=== PATIENT | female | born 2000 | race Caucasian/White ===

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

== ENCOUNTER 2022-07-08 07:21 | Emergency (ER) | payer BC, OTHER ==
[2022-07-08 07:32] VITALS: BP 127/78; PULSE 110; RESP 26; TEMP 98.2
[2022-07-08] MEDS ORDERED: IBUPROFEN 600 MG TAB PO STA (07:46)
[2022-07-08] MEDS ORDERED: ACETAMINOPHEN TAB 325 MG TAB PO STA (07:46)
[2022-07-08] MEDS ORDERED: LIDOCAINE 1% INJ 10MG/ML (30 ML VIAL-PF) SQ ONE (07:46)
[2022-07-08] MEDS ORDERED: DIPH,PERTUS(ACELL)TETVAC-LF 0.5 ML VIAL IM ONE (07:46)
--- NOTE | 2022-07-08 07:56 | ED ---
Upper Extremity HPI - General Chief Complaint: Extremity Injury, Upper Stated Complaint: Hand Lac Time Seen by Provider: 07/08/22 07:45 Source: patient, family (mom) Mode of arrival: ambulatory Limitations: no limitations - History of Present Illness Initial Comments: This is a developmentally delayed 22-year-old female brought in by mother after sustaining a laceration to the left forearm around 6:30 this morning when she hit a window. Patient denies any other injuries. Unknown if tetanus shot is up-to-date. No active bleeding at this time. MD Complaint: Injury to:: left, forearm -: hour(s) (1) Place: home Severity scale (1-10): 10 Context: other (hit window, laceration) Associated Symptoms: denies other symptoms - Related Data Allergies Allergy/AdvReac Type Severity Reaction Status Date / Time amoxicillin AdvReac Rash/Hives Verified 07/08/22 07:32 codeine AdvReac Unknown Verified 07/08/22 07:33 Childhood Review of Systems ROS Statement: Those systems with pertinent positive or pertinent negative responses have been documented in the HPI. ROS Other: All systems not noted in ROS Statement are negative. Past Medical History Additional Past Medical History / Comment(s): TRIO neuro development delay History of Any Multi-Drug Resistant Organisms: None Reported Past Surgical History: Hernia Repair Smoking Status: Never smoker Past Alcohol Use History: None Reported Past Drug Use History: None Reported General Exam Limitations: no limitations General appearance: alert Head exam: Present: atraumatic, normocephalic Eye exam: Absent: scleral icterus, conjunctival injection, periorbital swelling Respiratory exam: Absent: respiratory distress, accessory muscle use Cardiovascular Exam: Present: tachycardia Extremities exam: Present: normal capillary refill Left Elbow exam: Absent: tenderness Forearm Wrist exam: Present: tenderness, laceration. Absent: swelling, abrasion Hand Wrist exam: Present: full ROM. Absent: tenderness Neuro motor exam: Present: wrist extension intact Neurosensory exam: Present: radial nerve intact, ulnar nerve intact, median nerve intact Vascular: Present: normal capillary refill. Absent: vascular compromise Neurological exam: Present: alert Psychiatric exam: Present: anxious Skin exam: Present: warm, dry, normal color. Absent: cyanosis, diaphoretic, petechiae, pallor Course Vital Signs 07/08/22 07:27 Temperature 98.2 F Pulse Rate 110 H Respiratory 26 H Rate Blood Pressure 127/78 O2 Sat by Pulse 96 Oximetry Procedures - Laceration Laceration #1 Indication: laceration Site: upper extremity Size (cm): 6 Description: linear Anesthetic Used: lidocaine 1% Anesthesia Technique: local infiltration Pre-repair: wound explored, irrigated extensively Size of Sutures: 4-0, 6-0 Number of Sutures: 10 Technique: simple, interrupted Patient Tolerated Procedure: well, no complications Medical Decision Making - Medical Decision Making Patient lacerated her left forearm after punching a window breaking the glass. She has full range of motion. Sensation intact. Neurovascularly intact. Wound was cleansed with copious irrigation and explored with no evidence of foreign body. X-ray of the left forearm interpreted by me shows no evidence of fracture or foreign body. Radiologist interpretation no evidence of acute fracture, soft tissue defect on the ulnar aspect of the mid forearm consistent laceration. No radiopaque foreign body. Patient was given Tylenol Motrin for pain. Mom refused tetanus shot. Bacitracin dressing was applied directed to follow up with primary care doctor for suture removal. Mom was agreeable to this plan of care. Case discussed with Dr. Ko. Was pt. sent in by a medical professional or institution (, PA, [employer], urgent care, hospital, or care home...) When possible be specific @ -No Did you speak to anyone other than the patient for history (EMS, parent, family, police, friend...)? What history was obtained from this source @ -mom Did you review nursing and triage notes (agree or disagree)? Why? @ -I reviewed and agree with nursing and triage notes Were old charts reviewed (outside hosp., previous admission, EMS record, old EKG, old radiological studies, urgent care reports/EKG's, care home records)? Report findings @ -No old charts were reviewed Differential Diagnosis (chest pain, altered mental status, abdominal pain women, abdominal pain men, vaginal bleeding, weakness, fever, dyspnea, syncope, headache, dizziness, GI bleed, back pain, seizure, CVA, palpatations, mental health, musculoskeletal)? @ -Laceration, foreign body, fracture EKG interpreted by me (3pts min.). @ -n/a X-rays interpreted by me (1pt min.). @ -Yes as above CT interpreted by me (1pt min.). @ -None done U/S interpreted by me (1pt. min.). @ -None done What testing was considered but not performed or refused? (CT, X-rays, U/S, labs)? Why? @ -None What meds were considered but not given or refused? Why? @ -Tetanus was offered and refused Did you discuss the management of the patient with other professionals (professionals i.e. , PA, [employer], lab, RT, psych nurse, social media campaign manager, shrimp boat captain, teacher, ski patrol officer, caseworker intake)? Give summary @ -No Was smoking cessation discussed for >3mins.? @ -No Was critical care preformed (if so, how long)? @ -No Were there social determinants of health that impacted care today? How? (Homelessness, low income, unemployed, alcoholism, drug addiction, transportation, low edu. Level, literacy, decrease access to med. care, intermediate, rehab)? @ -Low education literacy, developmental delay Was there de-escalation of care discussed even if they declined (Discuss DNR or withdrawal of care, Hospice)? DNR status @ -No What co-morbidities impacted this encounter? (DM, HTN, Smoking, COPD, CAD, Cancer, CVA, ARF, Chemo, Hep., AIDS, mental health diagnosis, sleep apnea, morbid obesity)? @ -None Was patient admitted / discharged? Hospital course, mention meds given and route, prescriptions, significant lab abnormalities, going to OR and other pertinent info. @ -Discharged Undiagnosed new problem with uncertain prognosis? @ -No Drug Therapy requiring intensive monitoring for toxicity (Heparin, Nitro, Insulin, Cardizem)? @ -No Were any procedures done? @ -Laceration repair Diagnosis/symptom? @ -Left forearm laceration Acute, or Chronic, or Acute on Chronic? @ -Acute Uncomplicated (without systemic symptoms) or Complicated (systemic symptoms)? @ -Uncomplicated Side effects of treatment? @ -No Exacerbation, Progression, or Severe Exacerbation? @ -No Poses a threat to life or bodily function? How? (Chest pain, [place], [place], pneumonia, PE, COPD, DKA, ARF, appy, cholecystitis, CVA, Diverticulitis, Homicidal, Suicidal, threat to staff... and all critical care pts) @ -No Disposition Clinical Impression: Laceration of forearm, left Disposition: HOME SELF-CARE Condition: Good Instructions (If sedation given, give patient instructions): Laceration (ED) Additional Instructions: Keep wound covered with a thin layer of bacitracin once a day. Sutures to be removed in 7-10 days by primary care doctor. Return with any signs and symptoms of infection including drainage, redness or fevers. Is patient prescribed a controlled substance at d/c from ED?: No Referrals: Rashard Cobb DO [Primary Care Provider] - 1-2 days Time of Disposition: 08:34
--- NOTE | 2022-07-08 08:07 | XR ---
EXAMINATION TYPE: XR forearm LT DATE OF EXAM: 07/08/2022 8:03 AM INDICATION: Patient age:Female; 22 years old; Reason for study: foreign body; [facility]. COMPARISON: None TECHNIQUE: The left forearm was examined in AP and lateral projections. FINDINGS: No acute fracture or dislocation. No osseous erosions. No joint dislocation. No soft tissu e edema. There is a soft tissue defect along the ulnar aspect of the mid forearm consistent with know n laceration. No radiopaque foreign body identified. IMPRESSION: 1. No evidence of acute fracture. 2. Soft tissue defect along the ulnar aspect of the midforearm consistent with known laceration. No radiopaque foreign body.
[2022-07-08] MEDS ORDERED: BACITRACIN OINT 1 EACH PACKET TOPICAL ONE (08:32)
== END 2022-07-08 08:59 | disposition home or self-care (01) ==
LOC: EC 07:21
DX: S51.812A Laceration without foreign body of left forearm, initial encounter (principal); Z88.5 Allergy status to narcotic agent; Z88.0 Allergy status to penicillin; W22.09XA Striking against other stationary object, initial encounter; Y92.009 Unspecified place in unspecified non-institutional (private) residence as the place of occurrence of the external cause
CPT/HCPCS: 73090; 99283; 12002; J2001

== ENCOUNTER 2022-10-27 19:22 | Emergency (ER) | payer BC, OTHER ==
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
[2022-10-27] MEDS ORDERED: LORazepam 1 MG TAB PO STA (21:34)
== END 2022-10-27 21:53 | disposition home or self-care (01) ==
LOC: EC 19:22 → EEVIPCON 19:22 → EC 21:53
DX: F43.20 Adjustment disorder, unspecified (principal); Z88.0 Allergy status to penicillin; Z88.5 Allergy status to narcotic agent
CPT/HCPCS: 82075; 99284

== ENCOUNTER 2022-10-31 10:32 | Emergency (ER) | payer BC, OTHER ==
[2022-10-31] MEDS ORDERED: LORazepam 2 MG/ML INJ IM STA (10:51)
[2022-10-31 11:29] LABS: Amphetamine Screen,Urine Not Detected (NotDetected); Barbiturate Screen,Urine Not Detected (NotDetected); Benzodiazepines Screen,Urine Detected (NotDetected); Cocaine Screen,Urine Not Detected (NotDetected); Methadone Screen, Urine Not Detected (NotDetected); Opiate Screen,Urine Not Detected (NotDetected); Oxycodone Screen, Urine Not Detected (NotDetected); Phencyclidine Screen,Urine Not Detected (NotDetected); Tricyclic Antidepressant,Urine Not Detected (NotDetected); Urn Cannabinoid Scrn Detected (NotDetected)
--- NOTE | 2022-10-31 11:47 | ED ---
Psych HPI - General Chief Complaint: Psychiatric Symptoms Stated Complaint: Mental Health Time Seen by Provider: 10/31/22 10:45 Source: patient, family, RN notes reviewed Mode of arrival: ambulatory Limitations: no limitations - History of Present Illness Initial Comments: 22-year-old female presents emergency Department with mother and [facility] worker for psychiatric evaluation. Patient was discharged earlier this morning after evaluation. Symptoms are getting worse patient had recent medication change that are making symptoms worse. She's had psychotic manic features. Patient does not want to be year patient denies any drug or alcohol use. - Related Data Home Medications Medication Instructions Recorded Confirmed Calcium Carb/Vitamin D3/Vit K1 1 tab PO DAILY@0800 10/27/22 10/31/22 [Viactiv 650 mg-12.5 Mcg Chew] Daysee 1 tab PO DAILY@0800 10/27/22 10/31/22 Joy Otc 750mg 1 cap PO DAILY PRN 10/27/22 10/31/22 Multivitamins, Thera [Multivitamin 1 tab PO DAILY@0800 10/27/22 10/31/22 (formulary)] Nystatin/Triamcin 1 applic TOPICAL BID@0800,199910/27/22 10/31/22 [Nystatin-Triamcinolone Cream] OXcarbazepine [Trileptal] 600 mg PO BID@0800,199910/27/22 10/31/22 Saccharomyces Boulardii 250 mg PO BID@0800,199910/27/22 10/31/22 [Saccharomycin Df] LORazepam [Ativan] 1 mg PO BID@0800,159910/31/22 10/31/22 Allergies Allergy/AdvReac Type Severity Reaction Status Date / Time amoxicillin AdvReac Rash/Hives Verified 10/31/22 12:52 codeine AdvReac Unknown Verified 10/31/22 12:52 Childhood Review of Systems ROS Statement: Those systems with pertinent positive or pertinent negative responses have been documented in the HPI. ROS Other: All systems not noted in ROS Statement are negative. Past Medical History Past Medical History: No Reported History Additional Past Medical History / Comment(s): TRIO neuro development delay History of Any Multi-Drug Resistant Organisms: None Reported Past Surgical History: Hernia Repair Smoking Status: Never smoker Past Alcohol Use History: None Reported Past Drug Use History: None Reported General Exam Limitations: altered mental status General appearance: alert, in no apparent distress Head exam: Present: atraumatic, normocephalic, normal inspection Eye exam: Present: normal appearance, PERRL, EOMI. Absent: scleral icterus, conjunctival injection, periorbital swelling ENT exam: Present: normal exam, normal oropharynx Neck exam: Present: normal inspection, full ROM. Absent: tenderness, meningismus, lymphadenopathy Respiratory exam: Present: normal lung sounds bilaterally. Absent: respiratory distress, wheezes, rales, rhonchi, stridor Cardiovascular Exam: Present: regular rate, normal rhythm, normal heart sounds. Absent: systolic murmur, diastolic murmur, rubs, gallop, clicks Neurological exam: Present: alert Psychiatric exam: Present: agitated Course Vital Signs 10/31/22 10/31/22 10/31/22 10:42 10:44 14:44 Temperature 98.3 F Pulse Rate 102 H 86 68 Respiratory 20 18 16 Rate Blood Pressure 118/83 123/68 123/60 O2 Sat by Pulse 97 98 98 Oximetry Medical Decision Making - Medical Decision Making Was pt. sent in by a medical professional or institution (, PA, [employer]ERING AND EVENTS MANAGER, urgent care, hospital, or retirement...) When possible be specific @ -No Did you speak to anyone other than the patient for history (EMS, parent, family, police, friend...)? What history was obtained from this source @ -[facility], [facility] clinician providing current evaluation Did you review nursing and triage notes (agree or disagree)? Why? @ -I reviewed and agree with nursing and triage notes Were old charts reviewed (outside hosp., previous admission, EMS record, old EKG, old radiological studies, urgent care reports/EKG's, retirement records)? Report findings @ -No old charts were reviewed Differential Diagnosis (chest pain, altered mental status, abdominal pain women, abdominal pain men, vaginal bleeding, weakness, fever, dyspnea, syncope, headache, dizziness, GI bleed, back pain, seizure, CVA, palpatations, mental health, musculoskeletal)? @ -Medication reaction, psychosis, bipolar disorder, schizophrenia EKG interpreted by me (3pts min.). @ -None X-rays interpreted by me (1pt min.). @ -None done CT interpreted by me (1pt min.). @ -None done U/S interpreted by me (1pt. min.). @ -None done What testing was considered but not performed or refused? (CT, X-rays, U/S, labs)? Why? @ -None What meds were considered but not given or refused? Why? @ -None Did you discuss the management of the patient with other professionals (professionals i.e. , PA, CATERING AND EVENTS MANAGER, lab, RT, psych nurse, social work therapist, weight yardage checker, teacher, staff electronic warfare officer, case therapist)? Give summary @ -[EPS, [facility] evaluate the patient recommended patient to be admitted to psychiatric facility Was smoking cessation discussed for >3mins.? @ -No Was critical care preformed (if so, how long)? @ -No Were there social determinants of health that impacted care today? How? (Homelessness, low income, unemployed, alcoholism, drug addiction, transpor tation, low edu. Level, literacy, decrease access to med. care, senior care, rehab)? @ -No Was there de-escalation of care discussed even if they declined (Discuss DNR or withdrawal of care, Hospice)? DNR status @ -No What co-morbidities impacted this encounter? (DM, HTN, Smoking, COPD, CAD, Cancer, CVA, ARF, Chemo, Hep., AIDS, mental health diagnosis, sleep apnea, morbid obesity)? @ -None Was patient admitted / discharged? Hospital course, mention meds given and route, prescriptions, significant lab abnormalities, going to OR and other pertinent info. @ -Patient is transferred to psychiatric facility patient did have medical clearance, labs testing and Covid testing Undiagnosed new problem with uncertain prognosis? @ -No Drug Therapy requiring intensive monitoring for toxicity (Heparin, Nitro, Insulin, Cardizem)? @ -No Were any procedures done? @ -No Diagnosis/symptom? @ -Psychosis Acute, or Chronic, or Acute on Chronic? @ -Acute Uncomplicated (without systemic symptoms) or Complicated (systemic symptoms)? @ -Uncomplicated Side effects of treatment? @ -No Exacerbation, Progression, or Severe Exacerbation? @ -No Poses a threat to life or bodily function? How? (Chest pain, [place], [place], pneumonia, PE, COPD, DKA, ARF, appy, cholecystitis, CVA, Diverticulitis, Homicidal, Suicidal, threat to staff... and all critical care pts) @ -No - Lab Data Result diagrams: 07/06/23 14:01 Lab Results 10/31/22 10/31/22 10/31/22 Range/Units 10:51 10:51 14:01 WBC 9.6 (3.8-10.6) k/uL RBC 4.90 (3.80-5.40) m/uL Hgb 14.3 (11.4-16.0) gm/dL Hct 43.8 (34.0-46.0) % MCV 89.6 (80.0-100.0) fL MCH 29.2 (25.0-35.0) pg MCHC 32.6 (31.0-37.0) g/dL RDW 12.8 (11.5-15.5) % Plt Count 378 (150-450) k/uL MPV 6.7 Neutrophils % 70 % Lymphocytes % 20 % Monocytes % 7 % Eosinophils % 2 % Basophils % 0 % Neutrophils # 6.7 (1.3-7.7) k/uL Lymphocytes # 1.9 (1.0-4.8) k/uL Monocytes # 0.7 (0-1.0) k/uL Eosinophils # 0.1 (0-0.7) k/uL Basophils # 0.0 (0-0.2) k/uL Urine Color Yellow Urine Appearance Clear (Clear) Urine pH 7.5 (5.0-8.0) Ur Specific [place] 1.018 (1.001-1.035) Urine Protein Negative (Negative) Urine Glucose (UA) Negative (Negative) Urine Ketones Negative (Negative) Urine Blood Negative (Negative) Urine Nitrite Negative (Negative) Urine Bilirubin Negative (Negative) Urine Urobilinogen <2.0 (<2.0) mg/dL Ur Leukocyte Esterase Negative (Negative) Urine Opiates Screen Not Detected (NotDetected) Ur Oxycodone Screen Not Detected (NotDetected) Urine Methadone Screen Not Detected (NotDetected) Ur Propoxyphene Screen Not Detected (NotDetected) Ur Barbiturates Screen Not Detected (NotDetected) U Tricyclic Antidepress Not Detected (NotDetected) Ur Phencyclidine Scrn Not Detected (NotDetected) Ur Amphetamines Screen Not Detected (NotDetected) U Methamphetamines Scrn Not Detected (NotDetected) U Benzodiazepines Scrn Detected H (NotDetected) Urine Cocaine Screen Not Detected (NotDetected) U Marijuana (THC) Screen Detected H (NotDetected) Disposition Clinical Impression: Psychosis Disposition: TRANSFER TO PSYCH HOSP/UNIT Condition: Stable Referrals: Rashard Cobb DO [Primary Care Provider] - 1-2 days Time of Disposition: 14:56
[2022-10-31] MEDS ORDERED: LORazepam 1 MG TAB PO STA (13:03)
[2022-10-31 13:22] LABS: Appearance,Urine Clear (Clear); Bilirubin,Urine Negative (Negative); Blood,Urine Negative (Negative); Color,Urine Yellow; Glucose,Urine (UA) Negative (Negative); Ketones,Urine Negative (Negative); Leukocyte Esterase,Urine Negative (Negative); Nitrite,Urine Negative (Negative); PH, Urine 7.5 (5.0-8.0); Protein,Urine Negative (Negative); Specific Gravity,Urine 1.018 (1.001-1.035); Urobilinogen,Urine <2.0 mg/dL (<2.0)
[2022-10-31 14:52] LABS: Basophils % (A) 0 %; Eosinophils # (A) 0.1 k/uL (0-0.7); Eosinophils % (A) 2 %; HCT 43.8 % (34.0-46.0); HGB 14.3 gm/dL (11.4-16.0); Lymphocytes # (A) 1.9 k/uL (1.0-4.8); Lymphocytes % (A) 20 %; MCH 29.2 pg (25.0-35.0); MCHC 32.6 g/dL (31.0-37.0); MCV 89.6 fL (80.0-100.0); Mean Platelet Volume 6.7; Monocytes # (A) 0.7 k/uL (0-1.0); Monocytes % (A) 7 %; Neutrophils # (A) 6.7 k/uL (1.3-7.7); Neutrophils % (A) 70 %; Platelet Count 378 k/uL (150-450); RDW 12.8 % (11.5-15.5); WBC 9.6 k/uL (3.8-10.6)
[2022-10-31 15:08] LABS: ALT 41 U/L (4-34); AST 31 U/L (14-36); African American GFR (CKD) >90 (>60 ml/min/1.73 sqM); Albumin 4.2 g/dL (3.5-5.0); Alkaline Phosphatase 103 U/L (38-126); Anion Gap 7 mmol/L; Blood Urea Nitrogen 7 mg/dL (7-17); Calcium 9.4 mg/dL (8.4-10.2); Carbon Dioxide 26 mmol/L (22-30); Chloride 106 mmol/L (98-107); Glucose 113 mg/dL (74-99); Non-African American GFR(CKD) >90 (>60 ml/min/1.73 sqM); Potassium 3.9 mmol/L (3.5-5.1); Sodium 139 mmol/L (137-145); Total Bilirubin 0.3 mg/dL (0.2-1.3); Total Protein 7.2 g/dL (6.3-8.2)
[2022-10-31] MEDS ORDERED: LORazepam 1 MG TAB PO PRN (18:08)
[2022-10-31] MEDS: OXcarbazepine 150 MG TAB PO SCH (20:11)
[2022-10-31] MEDS: LORazepam 1 MG TAB PO SCH (21:49)
[2022-11-01] MEDS: CALCIUM CARB-VIT D 500 MG-5 MCG TAB PO SCH (09:49)
[2022-11-01] MEDS: MULTIVITAMINS, THERA 1 EACH TAB PO SCH (09:49)
[2022-11-01] MEDS: OXcarbazepine 150 MG TAB PO SCH ×2 (10:09→20:56)
[2022-11-01] MEDS: LORazepam 1 MG TAB PO SCH (18:34)
[2022-11-02] MEDS: MULTIVITAMINS, THERA 1 EACH TAB PO SCH (08:36)
[2022-11-02] MEDS: CALCIUM CARB-VIT D 500 MG-5 MCG TAB PO SCH (08:36)
[2022-11-02] MEDS: OXcarbazepine 150 MG TAB PO SCH ×2 (08:36→21:33)
[2022-11-02] MEDS: LORazepam 1 MG TAB PO SCH ×2 (08:36→22:39)
[2022-11-02] MEDS: DAYSEE PO SCH (10:00)
[2022-11-03] MEDS: OXcarbazepine 150 MG TAB PO SCH ×2 (11:28→21:20)
[2022-11-03] MEDS: LORazepam 1 MG TAB PO SCH ×3 (11:28→18:01)
[2022-11-03] MEDS: MULTIVITAMINS, THERA 1 EACH TAB PO SCH (11:29)
[2022-11-03] MEDS: CALCIUM CARB-VIT D 500 MG-5 MCG TAB PO SCH (11:29)
[2022-11-03] MEDS: DAYSEE PO SCH (11:29)
[2022-11-03] MEDS: LORazepam 1 MG TAB PO PRN (21:20)
[2022-11-04] MEDS: LORazepam 1 MG TAB PO SCH ×2 (09:57→16:57)
[2022-11-04] MEDS: MULTIVITAMINS, THERA 1 EACH TAB PO SCH (09:58)
[2022-11-04] MEDS: CALCIUM CARB-VIT D 500 MG-5 MCG TAB PO SCH (09:58)
[2022-11-04] MEDS: OXcarbazepine 150 MG TAB PO SCH ×2 (09:59→22:34)
[2022-11-04] MEDS: DAYSEE PO SCH (10:00)
[2022-11-04 20:57] VITALS: TEMP 97.4
[2022-11-04] MEDS: LORazepam 1 MG TAB PO PRN (23:22)
[2022-11-05] MEDS: LORazepam 1 MG TAB PO PRN ×2 (02:40→11:05)
[2022-11-05] MEDS ORDERED: diphenhydrAMINE 50 MG/ML 1 ML VIAL IVP STA (02:42)
[2022-11-05] MEDS ORDERED: diphenhydrAMINE 50 MG/ML 1 ML VIAL IM ONE (02:49)
[2022-11-05] MEDS ORDERED: HALOPERIDOL LACTATE 5 MG/ML 1 ML VIAL IM STA (02:59)
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
[2022-11-05 06:49] VITALS: RESP 18
[2022-11-05] MEDS: DAYSEE PO SCH (10:18)
[2022-11-05] MEDS: LORazepam 1 MG TAB PO SCH (10:18)
[2022-11-05] MEDS: MULTIVITAMINS, THERA 1 EACH TAB PO SCH (10:18)
[2022-11-05] MEDS: OXcarbazepine 150 MG TAB PO SCH (10:18)
[2022-11-05] MEDS: CALCIUM CARB-VIT D 500 MG-5 MCG TAB PO SCH (10:18)
--- NOTE | 2022-11-05 13:10 | ED ---
Medical Decision Making - Lab Data Result diagrams: 10/31/22 14:01 10/31/22 14:01 Lab Results 10/31/22 10/31/22 10/31/22 Range/Units 10:51 10:51 14:01 WBC 9.6 (3.8-10.6) k/uL RBC 4.90 (3.80-5.40) m/uL Hgb 14.3 (11.4-16.0) gm/dL Hct 43.8 (34.0-46.0) % MCV 89.6 (80.0-100.0) fL MCH 29.2 (25.0-35.0) pg MCHC 32.6 (31.0-37.0) g/dL RDW 12.8 (11.5-15.5) % Plt Count 378 (150-450) k/uL MPV 6.7 Neutrophils % 70 % Lymphocytes % 20 % Monocytes % 7 % Eosinophils % 2 % Basophils % 0 % Neutrophils # 6.7 (1.3-7.7) k/uL Lymphocytes # 1.9 (1.0-4.8) k/uL Monocytes # 0.7 (0-1.0) k/uL Eosinophils # 0.1 (0-0.7) k/uL Basophils # 0.0 (0-0.2) k/uL Sodium (137-145) mmol/L Potassium (3.5-5.1) mmol/L Chloride (98-107) mmol/L Carbon Dioxide (22-30) mmol/L Anion Gap mmol/L BUN (7-17) mg/dL Creatinine (0.52-1.04) mg/dL Est GFR (CKD-EPI)AfAm (>60 ml/min/1.73 sqM) Est GFR (CKD-EPI)NonAf (>60 ml/min/1.73 sqM) Glucose (74-99) mg/dL Calcium (8.4-10.2) mg/dL Total Bilirubin (0.2-1.3) mg/dL AST (14-36) U/L ALT (4-34) U/L Alkaline Phosphatase (38-126) U/L Total Protein (6.3-8.2) g/dL Albumin (3.5-5.0) g/dL Urine Color Yellow Urine Appearance Clear (Clear) Urine pH 7.5 (5.0-8.0) Ur Specific [place] 1.018 (1.001-1.035) Urine Protein Negative (Negative) Urine Glucose (UA) Negative (Negative) Urine Ketones Negative (Negative) Urine Blood Negative (Negative) Urine Nitrite Negative (Negative) Urine Bilirubin Negative (Negative) Urine Urobilinogen <2.0 (<2.0) mg/dL Ur Leukocyte Esterase Negative (Negative) Urine Opiates Screen Not Detected (NotDetected) Ur Oxycodone Screen Not Detected (NotDetected) Urine Methadone Screen Not Detected (NotDetected) Ur Propoxyphene Screen Not Detected (NotDetected) Ur Barbiturates Screen Not Detected (NotDetected) U Tricyclic Antidepress Not Detected (NotDetected) Ur Phencyclidine Scrn Not Detected (NotDetected) Ur Amphetamines Screen Not Detected (NotDetected) U Methamphetamines Scrn Not Detected (NotDetected) U Benzodiazepines Scrn Detected H (NotDetected) Urine Cocaine Screen Not Detected (NotDetected) U Marijuana (THC) Screen Detected H (NotDetected) Coronavirus (PCR) (Not Detectd) 10/31/22 10/31/22 Range/Units 14:01 14:01 WBC (3.8-10.6) k/uL RBC (3.80-5.40) m/uL Hgb (11.4-16.0) gm/dL Hct (34.0-46.0) % MCV (80.0-100.0) fL MCH (25.0-35.0) pg MCHC (31.0-37.0) g/dL RDW (11.5-15.5) % Plt Count (150-450) k/uL MPV Neutrophils % % Lymphocytes % % Monocytes % % Eosinophils % % Basophils % % Neutrophils # (1.3-7.7) k/uL Lymphocytes # (1.0-4.8) k/uL Monocytes # (0-1.0) k/uL Eosinophils # (0-0.7) k/uL Basophils # (0-0.2) k/uL Sodium 139 (137-145) mmol/L Potassium 3.9 (3.5-5.1) mmol/L Chloride 106 (98-107) mmol/L Carbon Dioxide 26 (22-30) mmol/L Anion Gap 7 mmol/L BUN 7 (7-17) mg/dL Creatinine 0.65 (0.52-1.04) mg/dL Est GFR (CKD-EPI)AfAm >90 (>60 ml/min/1.73 sqM) Est GFR (CKD-EPI)NonAf >90 (>60 ml/min/1.73 sqM) Glucose 113 H (74-99) mg/dL Calcium 9.4 (8.4-10.2) mg/dL Total Bilirubin 0.3 (0.2-1.3) mg/dL AST 31 (14-36) U/L ALT 41 H (4-34) U/L Alkaline Phosphatase 103 (38-126) U/L Total Protein 7.2 (6.3-8.2) g/dL Albumin 4.2 (3.5-5.0) g/dL Urine Color Urine Appearance (Clear) Urine pH (5.0-8.0) Ur Specific [place] (1.001-1.035) Urine Protein (Negative) Urine Glucose (UA) (Negative) Urine Ketones (Negative) Urine Blood (Negative) Urine Nitrite (Negative) Urine Bilirubin (Negative) Urine Urobilinogen (<2.0) mg/dL Ur Leukocyte Esterase (Negative) Urine Opiates Screen (NotDetected) Ur Oxycodone Screen (NotDetected) Urine Methadone Screen (NotDetected) Ur Propoxyphene Screen (NotDetected) Ur Barbiturates Screen (NotDetected) U Tricyclic Antidepress (NotDetected) Ur Phencyclidine Scrn (NotDetected) Ur Amphetamines Screen (NotDetected) U Methamphetamines Scrn (NotDetected) U Benzodiazepines Scrn (NotDetected) Urine Cocaine Screen (NotDetected) U Marijuana (THC) Screen (NotDetected) Coronavirus (PCR) Not Detected (Not Detectd) Disposition Clinical Impression: Psychosis Disposition: HOME SELF-CARE Condition: Fair Is patient prescribed a controlled substance at d/c from ED?: No Referrals: Rashard Cobb DO [Primary Care Provider] - 1-2 days
[2022-11-05 13:17] VITALS: BP 135/78; PULSE 65
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
== END 2022-11-05 13:17 | disposition home or self-care (01) ==
LOC: EC 10:32
DX: F29 Unspecified psychosis not due to a substance or known physiological condition (principal); Z88.0 Allergy status to penicillin; Z88.5 Allergy status to narcotic agent
CPT/HCPCS: 36415; 80053; 80306; 81003; 82075; 85025; 87635; 99285

== ENCOUNTER 2022-11-05 14:19 | Emergency (ER) | payer BC, OTHER ==
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
[2022-11-05] MEDS ORDERED: IPRATROPIUM-ALBUTEROL 3 ML NEB INHALATION STA (15:08)
[2022-11-05] MEDS ORDERED: methylPREDNISolone SOD SUCCI 125 MG/2 ML VIAL IV STA (15:08)
[2022-11-05] MEDS ORDERED: LORazepam 2 MG/ML INJ IM STA (19:36)
[2022-11-05] MEDS: OXcarbazepine 300 MG TAB PO SCH (20:52)
[2022-11-05] MEDS: TRIAMCINOLONE 0.1% CREAM 80 GM TUBE TOPICAL SCH (20:52)
[2022-11-05] MEDS: NYSTATIN 100,000UNIT/GM CREAM 30 GM TUBE TOPICAL SCH (20:52)
[2022-11-05] MEDS ORDERED: LORazepam 1 MG TAB PO STA ×2 (20:54→21:35)
[2022-11-05] MEDS ORDERED: NYSTAT-TRIAMCIN 100,000-0.1 UNIT/GM-% CREAM 30 GM TUBE TOPICAL SCH (21:00)
[2022-11-05] MEDS ORDERED: HALOPERIDOL LACTATE 5 MG/ML 1 ML VIAL IM STA (21:40)
[2022-11-05 22:10] LABS: Basophils % (A) 0 %; Eosinophils # (A) 0.3 k/uL (0-0.7); Eosinophils % (A) 3 %; HCT 43.7 % (34.0-46.0); HGB 14.3 gm/dL (11.4-16.0); Lymphocytes # (A) 2.4 k/uL (1.0-4.8); Lymphocytes % (A) 21 %; MCH 29.8 pg (25.0-35.0); MCHC 32.7 g/dL (31.0-37.0); MCV 91.1 fL (80.0-100.0); Mean Platelet Volume 6.9; Monocytes # (A) 0.7 k/uL (0-1.0); Monocytes % (A) 6 %; Neutrophils # (A) 7.5 k/uL (1.3-7.7); Neutrophils % (A) 68 %; Platelet Count 330 k/uL (150-450); RDW 12.7 % (11.5-15.5); WBC 11.2 k/uL (3.8-10.6)
[2022-11-05 22:17] LABS: African American GFR (CKD) >90 (>60 ml/min/1.73 sqM); Anion Gap 11 mmol/L; Blood Urea Nitrogen 12 mg/dL (7-17); Calcium 9.5 mg/dL (8.4-10.2); Carbon Dioxide 23 mmol/L (22-30); Chloride 106 mmol/L (98-107); Glucose 94 mg/dL (74-99); Non-African American GFR(CKD) >90 (>60 ml/min/1.73 sqM); Sodium 140 mmol/L (137-145)
[2022-11-05 22:28] LABS: Amphetamine Screen,Urine Not Detected (NotDetected); Barbiturate Screen,Urine Not Detected (NotDetected); Benzodiazepines Screen,Urine Detected (NotDetected); Cocaine Screen,Urine Not Detected (NotDetected); Methadone Screen, Urine Not Detected (NotDetected); Opiate Screen,Urine Not Detected (NotDetected); Oxycodone Screen, Urine Not Detected (NotDetected); Phencyclidine Screen,Urine Not Detected (NotDetected); Tricyclic Antidepressant,Urine Not Detected (NotDetected); Urn Cannabinoid Scrn Not Detected (NotDetected)
[2022-11-05 22:45] LABS: Amorphous Sediment,Urine Moderate /hpf; Appearance,Urine Cloudy (Clear); Bilirubin,Urine Negative (Negative); Blood,Urine Negative (Negative); Color,Urine Yellow; Glucose,Urine (UA) Negative (Negative); Ketones,Urine Negative (Negative); Leukocyte Esterase,Urine Negative (Negative); Mucus,Urine Rare /hpf; Nitrite,Urine Negative (Negative); Protein,Urine Trace (Negative); Specific Gravity,Urine 1.022 (1.001-1.035); Squamous Epithelial Cell,Urine 1 /hpf (0-4); Urobilinogen,Urine <2.0 mg/dL (<2.0); WBC,Urine <1 /hpf (0-5)
[2022-11-06] MEDS ORDERED: LORazepam 1 MG TAB PO SCH (08:00)
[2022-11-06] MEDS: MULTIVITAMINS, THERA 1 EACH TAB PO SCH (11:22)
[2022-11-06] MEDS: OXcarbazepine 300 MG TAB PO SCH (11:22)
[2022-11-06] MEDS: DAYSEE PO SCH (11:23)
[2022-11-06] MEDS: TRIAMCINOLONE 0.1% CREAM 80 GM TUBE TOPICAL SCH ×2 (11:24→21:08)
[2022-11-06] MEDS: NYSTATIN 100,000UNIT/GM CREAM 30 GM TUBE TOPICAL SCH ×2 (11:24→21:08)
[2022-11-06] MEDS ORDERED: LORazepam 2 MG/ML INJ IM PRN (14:36)
[2022-11-06] MEDS ORDERED: LORazepam 1 MG TAB PO PRN (14:39)
[2022-11-06] MEDS ORDERED: HALOPERIDOL LACTATE 5 MG/ML 1 ML VIAL IM PRN (14:39)
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
[2022-11-06] MEDS: risperiDONE 1 MG TAB PO SCH ×2 (16:20→21:08)
[2022-11-06] MEDS: LORazepam 0.5 MG TAB PO SCH (16:20)
[2022-11-06] MEDS: LITHIUM CARBONATE 300 MG CAP PO SCH (21:07)
[2022-11-07] MEDS: DAYSEE PO SCH (09:55)
[2022-11-07] MEDS: MULTIVITAMINS, THERA 1 EACH TAB PO SCH (09:56)
[2022-11-07] MEDS: risperiDONE 1 MG TAB PO SCH ×2 (09:56→21:40)
[2022-11-07] MEDS: LITHIUM CARBONATE 300 MG CAP PO SCH ×2 (09:56→21:36)
[2022-11-07] MEDS: LORazepam 0.5 MG TAB PO SCH ×2 (09:57→17:49)
[2022-11-07] MEDS: NYSTATIN 100,000UNIT/GM CREAM 30 GM TUBE TOPICAL SCH ×2 (10:32→21:36)
[2022-11-07] MEDS: TRIAMCINOLONE 0.1% CREAM 80 GM TUBE TOPICAL SCH ×2 (10:32→21:36)
--- NOTE | 2022-11-07 13:40 | P.PN ---
Progress Note - Text Progress Note Date: 11/07/22 Interval History: Patient was seen for psychiatric follow-up, she still remains in the ED. Erum mary's daughter states that she has not observed any behavioral issues at this time and she has been taking medications. Ibeth also states same thing and that patient has been fairly calm today. Patient was seen today eating putting watching television and was greeted by property underwriter. She appeared to have fair impulse control today, answered basic questions, improvement in hygiene and also in her appropriateness and concentration. She denied any overnight complaints, states that she slept "okay". States that she enjoyed her lunch earlier. She has been taking her medications and not complaining of any side effects. States that she talk with her mom however was not able to verbalize what they talked about. She appeared to be more pleasant today denying any depression or anxiety. At this time patient denies any suicidal or homical ideations, intent or plan. Patient denies any auditory, visual hallucinations. She has been compliant with her medications. Mental Status Exam: General Appearance: Patient appears to be stated age is alert and awake, overweight, laying in bed, improving attention span, watching television. Patient appears to have improving hygiene and grooming wearing hospital gown with improving eye contact. Behavior: Patient is calmly lying in bed without any agitated behavior. Operative, childlike. Speech: Patient's speech is fluent and nonpressured. Childlike. [place]. Mood/Affect: Patient reports their mood is "ok", affect is congruent, constricted. Childlike. Suicidality/Homicidality: Patient reports no suicidal or homicidal ideation, intention, and/or plan. Perceptions: Patient denies any visual hallucinations and denies any auditory hallucinations Though content/process: There is no evidence of any delusional thought content and thought process is concrete. Memory and concentration: AOX3, grossly intact for the purposes of this session. Judgment and insight: chronically limited IMPRESSIONS: Intellectual disability Adjustment disorder PLAN: -At this time patient DOES meet criteria for inpatient psychiatric placement on a DD/ID psych unit due to patients significant delay and behavioral concerns. -Patient DOES NOT have decision making capacity at this time and is unable to reason through and communicate/appreciate the risks, benefits and alternatives to treatment. -Would recommend the following medication changes/additions: lithium 300 mg twice a day for mood stabilization/aggression, Risperdal 1 mg twice a day for aggression/mood stabilization, trazodone 100 mg daily at bedtime when necessary for insomnia. Haldol and Ativan when necessary for agitation/aggression. -Psychiatry will continue to follow along tomorrow and likely sign off then if patient is doing well. SW and primary team to look at other options for placem ent if possible tomorrow and if patient does not need inpatient psych stay -property underwriter spoke with nurse about recommendations
[2022-11-08] MEDS: risperiDONE 1 MG TAB PO SCH ×2 (07:46→21:34)
[2022-11-08] MEDS: LITHIUM CARBONATE 300 MG CAP PO SCH ×2 (07:46→21:34)
[2022-11-08] MEDS: MULTIVITAMINS, THERA 1 EACH TAB PO SCH (07:46)
[2022-11-08] MEDS: DAYSEE PO SCH (07:47)
[2022-11-08] MEDS: LORazepam 0.5 MG TAB PO SCH ×2 (07:47→16:12)
[2022-11-08] MEDS: TRIAMCINOLONE 0.1% CREAM 80 GM TUBE TOPICAL SCH (07:49)
[2022-11-08] MEDS: NYSTATIN 100,000UNIT/GM CREAM 30 GM TUBE TOPICAL SCH (07:49)
[2022-11-08] MEDS: haloperidoL 5 MG TAB PO PRN (09:29)
[2022-11-08] MEDS: traZODone HCL 100 MG TAB PO PRN (22:20)
[2022-11-09] MEDS: NYSTATIN 100,000UNIT/GM CREAM 30 GM TUBE TOPICAL SCH ×4 (00:34→20:55)
[2022-11-09] MEDS: TRIAMCINOLONE 0.1% CREAM 80 GM TUBE TOPICAL SCH ×4 (00:34→20:55)
[2022-11-09] MEDS: LORazepam 0.5 MG TAB PO SCH ×2 (09:12→17:07)
[2022-11-09] MEDS: LITHIUM CARBONATE 300 MG CAP PO SCH ×2 (09:12→22:20)
[2022-11-09] MEDS: risperiDONE 1 MG TAB PO SCH ×2 (09:13→20:53)
[2022-11-09] MEDS: MULTIVITAMINS, THERA 1 EACH TAB PO SCH (09:13)
[2022-11-09] MEDS: DAYSEE PO SCH (09:14)
[2022-11-09] MEDS: haloperidoL 5 MG TAB PO PRN (20:53)
[2022-11-09] MEDS: traZODone HCL 100 MG TAB PO PRN (23:33)
[2022-11-10] MEDS: LORazepam 0.5 MG TAB PO SCH ×2 (07:55→15:46)
[2022-11-10] MEDS: LITHIUM CARBONATE 300 MG CAP PO SCH ×2 (07:55→21:02)
[2022-11-10] MEDS: risperiDONE 1 MG TAB PO SCH ×2 (07:55→20:37)
[2022-11-10] MEDS: DAYSEE PO SCH (07:55)
[2022-11-10] MEDS: MULTIVITAMINS, THERA 1 EACH TAB PO SCH (07:55)
[2022-11-10] MEDS ORDERED: ONDANSETRON ODT 4 MG TAB PO STA (10:36)
[2022-11-10] MEDS: TRIAMCINOLONE 0.1% CREAM 80 GM TUBE TOPICAL SCH ×2 (10:38→21:02)
[2022-11-10] MEDS: NYSTATIN 100,000UNIT/GM CREAM 30 GM TUBE TOPICAL SCH ×2 (10:38→20:38)
[2022-11-10] MEDS ORDERED: LORazepam 1 MG TAB PO STA (20:30)
[2022-11-10] MEDS: traZODone HCL 100 MG TAB PO PRN (23:53)
[2022-11-11] MEDS ORDERED: LORazepam 2 MG/ML INJ IM PRN (07:51)
[2022-11-11] MEDS ORDERED: traZODone HCL 100 MG TAB PO PRN (07:52)
[2022-11-11] MEDS ORDERED: HALOPERIDOL LACTATE 5 MG/ML 1 ML VIAL IM PRN (07:53)
[2022-11-11] MEDS: risperiDONE 1 MG TAB PO SCH ×2 (08:17→20:27)
[2022-11-11] MEDS: MULTIVITAMINS, THERA 1 EACH TAB PO SCH (08:17)
[2022-11-11] MEDS: LORazepam 0.5 MG TAB PO SCH ×2 (08:17→15:17)
[2022-11-11] MEDS: NYSTATIN 100,000UNIT/GM CREAM 30 GM TUBE TOPICAL SCH ×2 (08:18→20:10)
[2022-11-11] MEDS: TRIAMCINOLONE 0.1% CREAM 80 GM TUBE TOPICAL SCH ×2 (08:18→20:10)
[2022-11-11] MEDS: DAYSEE PO SCH (08:18)
[2022-11-11] MEDS ORDERED: ONDANSETRON 4 MG TAB PO STA (08:43)
[2022-11-11] MEDS: LITHIUM CARBONATE 300 MG CAP PO SCH ×2 (09:10→20:27)
[2022-11-11 20:12] VITALS: TEMP 98.1
[2022-11-12] MEDS: LORazepam 1 MG TAB PO PRN ×2 (03:46→22:40)
[2022-11-12] MEDS ORDERED: ONDANSETRON ODT 4 MG TAB PO STA (07:43)
[2022-11-12] MEDS: DAYSEE PO SCH (07:59)
[2022-11-12] MEDS: LORazepam 0.5 MG TAB PO SCH ×2 (08:01→16:23)
[2022-11-12] MEDS: haloperidoL 5 MG TAB PO PRN (08:02)
[2022-11-12] MEDS: LITHIUM CARBONATE 300 MG CAP PO SCH ×2 (08:02→20:34)
[2022-11-12] MEDS: MULTIVITAMINS, THERA 1 EACH TAB PO SCH (08:02)
[2022-11-12] MEDS: risperiDONE 1 MG TAB PO SCH ×2 (08:03→20:31)
[2022-11-12] MEDS: NYSTATIN 100,000UNIT/GM CREAM 30 GM TUBE TOPICAL SCH ×2 (10:06→21:17)
[2022-11-12] MEDS: TRIAMCINOLONE 0.1% CREAM 80 GM TUBE TOPICAL SCH ×2 (10:07→21:17)
[2022-11-13] MEDS: LORazepam 0.5 MG TAB PO SCH (08:09)
[2022-11-13] MEDS: MULTIVITAMINS, THERA 1 EACH TAB PO SCH ×2 (08:09→08:10)
[2022-11-13] MEDS: risperiDONE 1 MG TAB PO SCH (08:09)
[2022-11-13] MEDS: DAYSEE PO SCH (08:10)
[2022-11-13] MEDS: TRIAMCINOLONE 0.1% CREAM 80 GM TUBE TOPICAL SCH ×2 (08:11→08:12)
[2022-11-13] MEDS: NYSTATIN 100,000UNIT/GM CREAM 30 GM TUBE TOPICAL SCH (08:12)
[2022-11-13] MEDS: haloperidoL 5 MG TAB PO PRN (09:03)
[2022-11-13] MEDS: LITHIUM CARBONATE 300 MG CAP PO SCH (09:03)
[2022-11-13 10:25] VITALS: BP 118/80; PULSE 110; RESP 18
== END 2022-11-13 09:25 | disposition home or self-care (01) ==
LOC: EC 14:19
DX: Z04.6 Encounter for general psychiatric examination, requested by authority (principal); F79 Unspecified intellectual disabilities; F43.20 Adjustment disorder, unspecified; Z20.822 Contact with and (suspected) exposure to COVID-19; Z88.0 Allergy status to penicillin; Z88.5 Allergy status to narcotic agent
CPT/HCPCS: 96372 ×3; 99285 ×2; 82075; 36415; 80048; 85025; 81001; 81025; 80306; 87635; J2060; J1630

== ENCOUNTER 2022-12-11 00:36 | Emergency (ER) | payer BC, OTHER ==
[2022-12-11 00:50] VITALS: TEMP 97.6
--- NOTE | 2022-12-11 01:07 | ED ---
Altered Mental Status HPI - General Chief Complaint: Altered Mental Status Stated Complaint: Behavioral Issues Time Seen by Provider: 12/11/22 00:53 Source: patient, EMS, RN notes reviewed, old records reviewed Mode of arrival: EMS Limitations: altered mental status - History of Present Illness Initial Comments: 22-year-old female developmentally delayed presents from a [place] [facility]. Per EMS patient was aggressive with staff tonight. Patient states that she just wants to go back to the [place] [facility] [place]. Denies any suicidal or homicidal thoughts. Denies any pain or discomfort. She is calm at this time eating a sandwich and drinking pop. Complaint: other (agitation) -: hour(s) Associated Symptoms: denies other symptoms - Related Data Home Medications Medication Instructions Recorded Confirmed Calcium Carb/Vitamin D3/Vit K1 1 tab PO DAILY@0800 10/27/22 11/05/22 [Viactiv 650 mg-12.5 Mcg Chew] Joy Otc 750mg 1 cap PO DAILY PRN 10/27/22 11/05/22 Multivitamins, Thera [Multivitamin 1 tab PO DAILY@0800 10/27/22 11/05/22 (formulary)] Nystatin/Triamcin 1 applic TOPICAL BID@0800,199910/27/22 11/05/22 [Nystatin-Triamcinolone Cream] OXcarbazepine [Trileptal] 600 mg PO BID@0800,199910/27/22 11/05/22 Saccharomyces Boulardii 250 mg PO BID@0800,199910/27/22 11/05/22 [Saccharomycin Df] LORazepam [Ativan] 1 mg PO BID@0800,1600 10/31/22 11/05/22 l-Norgest/E.estradiol-E.estrad 1 tab PO DAILY@0800 11/05/22 11/05/22 [Seasonique 0.15-0.03-0.01 Tab] Previous Rx's Medication Instructions Recorded LORazepam [Ativan] 1 mg PO TID 3 Days #9 tab 11/13/22 Allergies Allergy/AdvReac Type Severity Reaction Status Date / Time amoxicillin AdvReac Rash/Hives Verified 11/05/22 23:09 codeine AdvReac Unknown Verified 11/05/22 23:09 Childhood Review of Systems ROS Statement: Those systems with pertinent positive or pertinent negative responses have been documented in the HPI. ROS Other: All systems not noted in ROS Statement are negative. Past Medical History Past Medical History: No Reported History Additional Past Medical History / Comment(s): TRIO neuro development delay History of Any Multi-Drug Resistant Organisms: None Reported Past Surgical History: Hernia Repair Smoking Status: Never smoker Past Alcohol Use History: None Reported Past Drug Use History: None Reported General Exam Limitations: altered mental status General appearance: alert, in no apparent distress Head exam: Present: atraumatic, normocephalic Eye exam: Present: normal appearance. Absent: scleral icterus, conjunctival injection, periorbital swelling ENT exam: Present: mucous membranes moist Neck exam: Present: full ROM. Absent: tenderness, meningismus Respiratory exam: Present: normal lung sounds bilaterally. Absent: respiratory distress, accessory muscle use Cardiovascular Exam: Present: regular rate GI/Abdominal exam: Present: soft. Absent: distended, tenderness, guarding, rebound, rigid Extremities exam: Present: normal capillary refill. Absent: pedal edema Back exam: Absent: tenderness Neurological exam: Present: alert Psychiatric exam: Present: normal affect, normal mood, anxious. Absent: depressed, agitated, flat affect, manic, homicidal ideation, suicidal ideation Skin exam: Present: warm, dry, normal color. Absent: cyanosis, diaphoretic Course Vital Signs 12/11/22 00:39 Temperature 97.6 F Pulse Rate 83 Respiratory 20 Rate Blood Pressure 112/70 O2 Sat by Pulse 96 Oximetry Medical Decision Making - Medical Decision Making Was pt. sent in by a medical professional or institution (, PA, SYSTEMS ANALYSIS MANAGER, urgent care, hospital, or half-way...) When possible be specific @ -[facility] home Did you speak to anyone other than the patient for history (EMS, parent, family, police, friend...)? What history was obtained from this source @ -No Did you review nursing and triage notes (agree or disagree)? Why? @ -I reviewed and agree with nursing and triage notes Were old charts reviewed (outside hosp., previous admission, EMS record, old EKG, old radiological studies, urgent care reports/EKG's, half-way records)? Report findings @ -Evaluation by Dr Gayle with recommendation for agitation 10/2022 Differential Diagnosis (chest pain, altered mental status, abdominal pain women, abdominal pain men, vaginal bleeding, weakness, fever, dyspnea, syncope, headache, dizziness, GI bleed, back pain, seizure, CVA, palpatations, mental health, musculoskeletal)? @ -Differential Mental Health Depression, anxiety, bipolar, psychosis, schizophrenia, borderline personality, situational depression, adjustment disorder, behavioral disorder, brain tumor, malingering, substance abuse, encephalopathy, medication reaction, dementia, hypothyroidism, degenerative neurologic disorder, lupus.... This is not meant to be all-inclusive list EKG interpreted by me (3pts min.). @ -n/a X-rays interpreted by me (1pt min.). @ -None done CT interpreted by me (1pt min.). @ -None done U/S interpreted by me (1pt. min.). @ -None done What testing was considered but not performed or refused? (CT, X-rays, U/S, labs)? Why? @ -None What meds were considered but not given or refused? Why? @ -Ativan and Haldol were considered however held, patient is calm and cooperative Did you discuss the management of the patient with other professionals (professionals i.e. , PA, SYSTEMS ANALYSIS MANAGER, lab, RT, psych nurse, high school social science teacher, clinical supervisor, teacher, air crew officer, bottle caser)? Give summary @ -No Was smoking cessation discussed for >3mins.? @ -No Was critical care preformed (if so, how long)? @ -No Were there social determinants of health that impacted care today? How? (Homelessness, low income, unemployed, alcoholism, drug addiction, transportation, low edu. Level, literacy, decrease access to med. care, snf, rehab)? @ -No Was there de-escalation of care discussed even if they declined (Discuss DNR or withdrawal of care, Hospice)? DNR status @ -No What co-morbidities impacted this encounter? (DM, HTN, Smoking, COPD, CAD, Cancer, CVA, ARF, Chemo, Hep., AIDS, mental health diagnosis, sleep apnea, morbid obesity)? @ developmentally delayed Was patient admitted / discharged? Hospital course, mention meds given and route, prescriptions, significant lab abnormalities, going to OR and other pertinent info. @ -Discharged 22-year-old female developmentally delayed presents from a [place] [facility]. Per EMS patient was aggressive with staff tonight. Patient states that she just wants to go back to the [place] [facility] [place]. Denies any suicidal or homicidal thoughts. Denies any pain or discomfort. She is calm at this time eating a sandwich and drinking pop. Patient has a history of trio neurodevelopmental disorder. Patient is calm and cooperative at this time. No acute distress. Consult from Dr. Gayle who evaluated the patient 11/06/2022 recommended to start lithium 300mg twice a day for aggression/mood stabilization, risperdal 1mg twice a day for aggression/mood stabilization, trazodone 100mg daily at bedtime for insomnia. Haldol and ativan when necessary for agitation/aggression. Nursing staff, Floridalma, did speak with staff who stated they do have orders for her agitation. She advised them to give them to her when necessary. Medication sheet shows patient was not given Haldol which was ordered for agitation. She has been calm and cooperative in the emergency room. She will be sent back to the [facility] home. Case discussed with Dr. Sheikh Undiagnosed new problem with uncertain prognosis? @ -No Drug Therapy requiring intensive monitoring for toxicity (Heparin, Nitro, Insulin, Cardizem)? @ -No Were any procedures done? @ -No Diagnosis/symptom? @ -Mood disorder Acute, or Chronic, or Acute on Chronic? @ -Acute on chronic Uncomplicated (without systemic symptoms) or Complicated (systemic symptoms)? @ -Uncomplicated Side effects of treatment? @ -No Exacerbation, Progression, or Severe Exacerbation? @ -No Poses a threat to life or bodily function? How? (Chest pain, [place], [place], pneumonia, PE, COPD, DKA, ARF, appy, cholecystitis, CVA, Diverticulitis, Homicidal, Suicidal, threat to staff... and all critical care pts) @ -No Disposition Clinical Impression: Agitation, Mood disorder Disposition: HOME SELF-CARE Condition: Good Instructions (If sedation given, give patient instructions): Mood Disorders (ED) Additional Instructions: Please give patient Haldol as previously prescribed as needed for any agitation. Is patient prescribed a controlled substance at d/c from ED?: No Referrals: Rashard Cobb DO [Primary Care Provider] - 1-2 days Time of Disposition: 01:36
[2022-12-11] MEDS ORDERED: MELATONIN 5 MG TABLET PO STA (02:21)
[2022-12-11 08:59] VITALS: BP 116/72; PULSE 82; RESP 18
== END 2022-12-11 08:59 | disposition home or self-care (01) ==
LOC: EC 00:36
DX: R45.1 Restlessness and agitation (principal); F39 Unspecified mood [affective] disorder; Z88.0 Allergy status to penicillin; Z88.5 Allergy status to narcotic agent
CPT/HCPCS: 99285

== ENCOUNTER 2022-12-12 19:26 | Emergency (ER) | payer BC, OTHER ==
[2022-12-12] MEDS ORDERED: LORazepam 2 MG/ML INJ IM STA (22:42)
--- NOTE | 2022-12-12 22:53 | ED ---
Recheck HPI - General Source: patient Mode of arrival: ambulatory Limitations: no limitations <Charisma Mayers - Last Filed: 12/13/22 02:25> <Ihsan Jasso - Last Filed: 12/13/22 14:17> - General Chief Complaint: Recheck/Abnormal Lab/Rx Stated Complaint: Behavior concerns Time Seen by Provider: 12/12/22 22:23 - History of Present Illness Initial Comments: 22-year-old female with cognitive delay presenting due to agitation and violent tendencies at her assisted. The assisted account executive sales representative states that the patient has been violent even after receiving her PRN medications. She was seen here yesterday for the same complaints and discharged with instructions for the assisted on PRN meds. Patient keeps repeating "I'm tired". [facility] representatives states that the patient did sleep last night. He states that she would not go lay down in her bed at the assisted. She denies any suicidal or homicidal ideation. (Charisma Mayers) - Related Data Home Medications Medication Instructions Recorded Confirmed Calcium Carb/Vitamin D3/Vit K1 1 tab PO DAILY@0800 10/27/22 12/13/22 [Viactiv 650 mg-12.5 Mcg Chew] Multivitamins, Thera [Multivitamin 1 tab PO DAILY@79910/27/22 12/13/22 (formulary)] OXcarbazepine [Trileptal] 600 mg PO BID@799,199910/27/22 12/13/22 l-Norgest/E.estradiol-E.estrad 1 tab PO DAILY@79911/05/22 12/13/22 [Seasonique 0.15-0.03-0.01 Tab] L.acidoph,Paracasei, B.lactis 1 cap PO BID@799,199912/13/22 12/13/22 [Probiotic] [place] Carbonate 300 mg PO DAILY@00 12/13/22 12/13/22 [place] Carbonate 600 mg PO HS@199912/13/22 12/13/22 haloperidoL [Haldol] 5 mg PO DAILY PRN 12/13/22 12/13/22 risperiDONE [RisperDAL] 1 mg PO BID@08,199912/13/22 12/13/22 traZODone HCL [Desyrel] 100 mg PO HS@199912/13/22 12/13/22 Allergies Allergy/AdvReac Type Severity Reaction Status Date / Time amoxicillin AdvReac Rash/Hives Verified 12/13/22 09:16 codeine AdvReac Unknown Verified 12/13/22 09:16 Childhood Review of Systems ROS Other: All systems not noted in ROS Statement are negative. <Charisma Mayers - Last Filed: 12/13/22 02:25> ROS Other: All systems not noted in ROS Statement are negative. <Ihsan Jasso - Last Filed: 12/13/22 14:17> ROS Statement: Those systems with pertinent positive or pertinent negative responses have been documented in the HPI. Past Medical History Past Medical History: No Reported History Additional Past Medical History / Comment(s): TRIO neuro development delay History of Any Multi-Drug Resistant Organisms: None Reported Past Surgical History: Hernia Repair Smoking Status: Never smoker Past Alcohol Use History: None Reported Past Drug Use History: None Reported <Charisma Mayers - Last Filed: 12/13/22 02:25> General Exam Limitations: altered mental status (cognitive delay) General appearance: alert, in no apparent distress Head exam: Present: atraumatic, normocephalic, normal inspection Eye exam: Present: normal appearance, EOMI Neck exam: Present: normal inspection, full ROM Respiratory exam: Present: normal lung sounds bilaterally. Absent: respiratory distress, wheezes, rales, rhonchi, stridor Cardiovascular Exam: Present: regular rate, normal rhythm, normal heart sounds. Absent: systolic murmur, diastolic murmur, rubs, gallop, clicks Neurological exam: Present: alert, altered (baseline) Psychiatric exam: Present: agitated Expanded Focused psych exam: Present: restlessness Skin exam: Present: warm, dry, intact, normal color. Absent: rash <Charisma Mayers - Last Filed: 12/13/22 02:25> Course Vital Signs 12/12/22 19:30 Temperature 98.4 F Pulse Rate 88 Respiratory 20 Rate Blood Pressure 139/83 O2 Sat by Pulse 96 Oximetry Medical Decision Making - Lab Data Result diagrams: 12/13/22 02:53 12/13/22 02:53 <Ihsan Jasso - Last Filed: 12/13/22 14:17> - Lab Data Lab Results 08/17/23 08/18/23 08/18/23 Range/Units 23:23 02:53 02:53 WBC 11.7 H (3.8-10.6) k/uL RBC 4.44 (3.80-5.40) m/uL Hgb 13.3 (11.4-16.0) gm/dL Hct 40.0 (34.0-46.0) % MCV 90.2 (80.0-100.0) fL MCH 30.0 (25.0-35.0) pg MCHC 33.3 (31.0-37.0) g/dL RDW 12.6 (11.5-15.5) % Plt Count 331 (150-450) k/uL MPV 7.1 Neutrophils % 67 % Lymphocytes % 20 % Monocytes % 7 % Eosinophils % 3 % Basophils % 0 % Neutrophils # 7.9 H (1.3-7.7) k/uL Lymphocytes # 2.4 (1.0-4.8) k/uL Monocytes # 0.8 (0-1.0) k/uL Eosinophils # 0.4 (0-0.7) k/uL Basophils # 0.0 (0-0.2) k/uL Sodium 138 (137-145) mmol/L Potassium 4.2 (3.5-5.1) mmol/L Chloride 108 H (98-107) mmol/L Carbon Dioxide 20 L (22-30) mmol/L Anion Gap 10 mmol/L BUN 12 (7-17) mg/dL Creatinine 0.72 (0.52-1.04) mg/dL Est GFR (CKD-EPI)AfAm >90 (>60 ml/min/1.73 sqM) Est GFR (CKD-EPI)NonAf >90 (>60 ml/min/1.73 sqM) Glucose 83 (74-99) mg/dL Calcium 9.2 (8.4-10.2) mg/dL Total Bilirubin 0.4 (0.2-1.3) mg/dL AST 23 (14-36) U/L ALT 19 (4-34) U/L Alkaline Phosphatase 91 (38-126) U/L Total Protein 6.9 (6.3-8.2) g/dL Albumin 3.9 (3.5-5.0) g/dL Urine Color Urine Appearance (Clear) Urine pH (5.0-8.0) Ur Specific [place] (1.001-1.035) Urine Protein (Negative) Urine Glucose (UA) (Negative) Urine Ketones (Negative) Urine Blood (Negative) Urine Nitrite (Negative) Urine Bilirubin (Negative) Urine Urobilinogen (<2.0) mg/dL Ur Leukocyte Esterase (Negative) Urine HCG, Qual (Not Detectd) Urine Opiates Screen Not Detected (NotDetected) Ur Oxycodone Screen Not Detected (NotDetected) Urine Methadone Screen Not Detected (NotDetected) Ur Propoxyphene Screen Not Detected (NotDetected) Ur Barbiturates Screen Not Detected (NotDetected) U Tricyclic Antidepress Not Detected (NotDetected) Ur Phencyclidine Scrn Not Detected (NotDetected) Ur Amphetamines Screen Not Detected (NotDetected) U Methamphetamines Scrn Not Detected (NotDetected) U Benzodiazepines Scrn Not Detected (NotDetected) Urine Cocaine Screen Not Detected (NotDetected) U Marijuana (THC) Screen Not Detected (NotDetected) Coronavirus (PCR) (Not Detectd) 12/13/22 12/13/22 12/13/22 Range/Units 02:53 02:53 02:53 WBC (3.8-10.6) k/uL RBC (3.80-5.40) m/uL Hgb (11.4-16.0) gm/dL Hct (34.0-46.0) % MCV (80.0-100.0) fL MCH (25.0-35.0) pg MCHC (31.0-37.0) g/dL RDW (11.5-15.5) % Plt Count (150-450) k/uL MPV Neutrophils % % Lymphocytes % % Monocytes % % Eosinophils % % Basophils % % Neutrophils # (1.3-7.7) k/uL Lymphocytes # (1.0-4.8) k/uL Monocytes # (0-1.0) k/uL Eosinophils # (0-0.7) k/uL Basophils # (0-0.2) k/uL Sodium (137-145) mmol/L Potassium (3.5-5.1) mmol/L Chloride (98-107) mmol/L Carbon Dioxide (22-30) mmol/L Anion Gap mmol/L BUN (7-17) mg/dL Creatinine (0.52-1.04) mg/dL Est GFR (CKD-EPI)AfAm (>60 ml/min/1.73 sqM) Est GFR (CKD-EPI)NonAf (>60 ml/min/1.73 sqM) Glucose (74-99) mg/dL Calcium (8.4-10.2) mg/dL Total Bilirubin (0.2-1.3) mg/dL AST (14-36) U/L ALT (4-34) U/L Alkaline Phosphatase (38-126) U/L Total Protein (6.3-8.2) g/dL Albumin (3.5-5.0) g/dL Urine Color Light Yellow Urine Appearance Clear (Clear) Urine pH 7.5 (5.0-8.0) Ur Specific [place] 1.014 (1.001-1.035) Urine Protein Negative (Negative) Urine Glucose (UA) Negative (Negative) Urine Ketones Negative (Negative) Urine Blood Negative (Negative) Urine Nitrite Negative (Negative) Urine Bilirubin Negative (Negative) Urine Urobilinogen <2.0 (<2.0) mg/dL Ur Leukocyte Esterase Negative (Negative) Urine HCG, Qual Not Detected (Not Detectd) Urine Opiates Screen (NotDetected) Ur Oxycodone Screen (NotDetected) Urine Methadone Screen (NotDetected) Ur Propoxyphene Screen (NotDetected) Ur Barbiturates Screen (NotDetected) U Tricyclic Antidepress (NotDetected) Ur Phencyclidine Scrn (NotDetected) Ur Amphetamines Screen (NotDetected) U Methamphetamines Scrn (NotDetected) U Benzodiazepines Scrn (NotDetected) Urine Cocaine Screen (NotDetected) U Marijuana (THC) Screen (NotDetected) Coronavirus (PCR) Not Detected (Not Detectd) Disposition Time of Disposition: 02:25 <Charisma Mayers - Last Filed: 12/13/22 02:25> Is patient prescribed a controlled substance at d/c from ED?: No <Ihsan Jasso - Last Filed: 12/13/22 14:17> Clinical Impression: Agitation, Encounter for psychological evaluation, Mood disorder Disposition: HOME SELF-CARE Condition: Fair Additional Instructions: Patient will follow-up at [facility]. Patient will go to assisted. Referrals: Rashard Cobb DO [Primary Care Provider] - 1-2 days
[2022-12-13 00:35] LABS: Amphetamine Screen,Urine Not Detected (NotDetected); Barbiturate Screen,Urine Not Detected (NotDetected); Benzodiazepines Screen,Urine Not Detected (NotDetected); Cocaine Screen,Urine Not Detected (NotDetected); Methadone Screen, Urine Not Detected (NotDetected); Opiate Screen,Urine Not Detected (NotDetected); Oxycodone Screen, Urine Not Detected (NotDetected); Phencyclidine Screen,Urine Not Detected (NotDetected); Tricyclic Antidepressant,Urine Not Detected (NotDetected); Urn Cannabinoid Scrn Not Detected (NotDetected)
[2022-12-13 03:02] LABS: Basophils % (A) 0 %; Eosinophils # (A) 0.4 k/uL (0-0.7); Eosinophils % (A) 3 %; HGB 13.3 gm/dL (11.4-16.0); Lymphocytes # (A) 2.4 k/uL (1.0-4.8); Lymphocytes % (A) 20 %; MCHC 33.3 g/dL (31.0-37.0); MCV 90.2 fL (80.0-100.0); Mean Platelet Volume 7.1; Monocytes # (A) 0.8 k/uL (0-1.0); Monocytes % (A) 7 %; Neutrophils # (A) 7.9 k/uL (1.3-7.7); Neutrophils % (A) 67 %; Platelet Count 331 k/uL (150-450); RBC 4.44 m/uL (3.80-5.40); RDW 12.6 % (11.5-15.5); WBC 11.7 k/uL (3.8-10.6)
[2022-12-13 03:13] LABS: ALT 19 U/L (4-34); AST 23 U/L (14-36); African American GFR (CKD) >90 (>60 ml/min/1.73 sqM); Albumin 3.9 g/dL (3.5-5.0); Alkaline Phosphatase 91 U/L (38-126); Anion Gap 10 mmol/L; Blood Urea Nitrogen 12 mg/dL (7-17); Calcium 9.2 mg/dL (8.4-10.2); Carbon Dioxide 20 mmol/L (22-30); Chloride 108 mmol/L (98-107); Glucose 83 mg/dL (74-99); Non-African American GFR(CKD) >90 (>60 ml/min/1.73 sqM); Potassium 4.2 mmol/L (3.5-5.1); Sodium 138 mmol/L (137-145); Total Bilirubin 0.4 mg/dL (0.2-1.3); Total Protein 6.9 g/dL (6.3-8.2)
[2022-12-13 03:17] LABS: Appearance,Urine Clear (Clear); Bilirubin,Urine Negative (Negative); Blood,Urine Negative (Negative); Color,Urine Light Yellow; Glucose,Urine (UA) Negative (Negative); Ketones,Urine Negative (Negative); Leukocyte Esterase,Urine Negative (Negative); Nitrite,Urine Negative (Negative); PH, Urine 7.5 (5.0-8.0); Protein,Urine Negative (Negative); Specific Gravity,Urine 1.014 (1.001-1.035); Urobilinogen,Urine <2.0 mg/dL (<2.0)
[2022-12-13] MEDS: LORazepam 1 MG TAB PO PRN ×2 (08:10→14:20)
[2022-12-13] MEDS ORDERED: haloperidoL 5 MG TAB PO PRN (09:26)
[2022-12-13] MEDS ORDERED: risperiDONE 1 MG TAB PO SCH (09:45)
[2022-12-13] MEDS ORDERED: OXcarbazepine 300 MG TAB PO SCH (09:45)
[2022-12-13] MEDS ORDERED: LITHIUM CARBONATE 300 MG CAP PO SCH ×2 (09:45→20:00)
[2022-12-13] MEDS ORDERED: ACETAMINOPHEN TAB 500 MG TAB PO STA (13:47)
[2022-12-13 14:30] VITALS: BP 115/78; PULSE 76; RESP 16; TEMP 98.9
[2022-12-13] MEDS ORDERED: traZODone HCL 100 MG TAB PO SCH (20:00)
== END 2022-12-13 14:34 | disposition home or self-care (01) ==
LOC: EC 19:26
DX: Z00.8 Encounter for other general examination (principal); F39 Unspecified mood [affective] disorder; R45.1 Restlessness and agitation; Z88.0 Allergy status to penicillin; Z88.5 Allergy status to narcotic agent
CPT/HCPCS: 82075; 80306; 99283; 96372; J2060; 36415; 80053; 81003; 81025; 85025; 87635

== ENCOUNTER 2023-02-28 16:57 | Emergency (ER) | payer BC, OTHER ==
[2023-02-28 17:44] VITALS: BP 107/70; PULSE 86; RESP 18; TEMP 98.6
[2023-02-28] MEDS ORDERED: LORazepam 2 MG/ML INJ IM STA (19:13)
[2023-02-28 20:42] LABS: Amphetamine Screen,Urine Not Detected (NotDetected); Barbiturate Screen,Urine Not Detected (NotDetected); Benzodiazepines Screen,Urine Detected (NotDetected); Cocaine Screen,Urine Not Detected (NotDetected); Methadone Screen, Urine Not Detected (NotDetected); Opiate Screen,Urine Not Detected (NotDetected); Oxycodone Screen, Urine Not Detected (NotDetected); Phencyclidine Screen,Urine Not Detected (NotDetected); Tricyclic Antidepressant,Urine Not Detected (NotDetected); Urn Cannabinoid Scrn Not Detected (NotDetected)
--- NOTE | 2023-02-28 22:58 | ED ---
Psych HPI - General Chief Complaint: Psychiatric Symptoms Stated Complaint: phys Time Seen by Provider: 02/28/23 18:50 Source: patient Mode of arrival: ambulatory - History of Present Illness Initial Comments: 22-year-old female presenting from [facility] for evaluation of aggression. Patient's mother is at bedside, she was told that the patient was becoming frustrated and aggressive and punching things at the [facility]. She was given her Ativan 1 mg when necessary which did not improve her aggression. Mother tells me that the patient has an upcoming appointment for med review next week. Patient is calm at this time, no suicidal or homicidal ideation. - Related Data Home Medications Medication Instructions Recorded Confirmed Multivitamins, Thera [Multivitamin 1 tab PO DAILY@0800 10/27/22 02/28/23 (formulary)] OXcarbazepine [Trileptal] 600 mg PO BID@0800,199910/27/22 02/28/23 l-Norgest/E.estradiol-E.estrad 1 tab PO DAILY@0800 11/05/22 02/28/23 [Seasonique 0.15-0.03-0.01 Tab] L.acidoph,Paracasei, B.lactis 1 cap PO BID@0800,199912/13/22 02/28/23 [Probiotic] [place] Carbonate 300 mg PO DAILY@0800 12/13/22 02/28/23 [place] Carbonate 600 mg PO HS@199912/13/22 02/28/23 risperiDONE [RisperDAL] 1 mg PO TID@0800,1600,199912/13/22 02/28/23 traZODone HCL [Desyrel] 100 mg PO HS@199912/13/22 02/28/23 LORazepam [Ativan] 1 mg PO BID PRN 02/28/23 02/28/23 Allergies Allergy/AdvReac Type Severity Reaction Status Date / Time amoxicillin AdvReac Rash/Hives Verified 02/28/23 21:26 codeine AdvReac Unknown Verified 02/28/23 21:26 Childhood Review of Systems ROS Statement: Those systems with pertinent positive or pertinent negative responses have been documented in the HPI. ROS Other: All systems not noted in ROS Statement are negative. Past Medical History Past Medical History: No Reported History Additional Past Medical History / Comment(s): TRIO neuro development delay History of Any Multi-Drug Resistant Organisms: None Reported Past Surgical History: Hernia Repair Smoking Status: Never smoker Past Alcohol Use History: None Reported Past Drug Use History: None Reported General Exam Limitations: no limitations General appearance: alert, in no apparent distress Head exam: Present: atraumatic, normocephalic, normal inspection Eye exam: Present: normal appearance, EOMI Neck exam: Present: normal inspection, full ROM Respiratory exam: Absent: respiratory distress Neurological exam: Present: alert Psychiatric exam: Present: normal affect, normal mood Skin exam: Present: warm, dry, intact, normal color. Absent: rash Course Vital Signs 02/28/23 17:28 Temperature 98.6 F Pulse Rate 86 Respiratory 18 Rate Blood Pressure 107/70 O2 Sat by Pulse 97 Oximetry Medical Decision Making - Medical Decision Making Was pt. sent in by a medical professional or institution (, PA, SENIOR J2EE DEVELOPER, urgent care, hospital, or halfway...) When possible be specific @ -No Did you speak to anyone other than the patient for history (EMS, parent, family, police, friend...)? What history was obtained from this source @ -History obtained from patient's mother Did you review nursing and triage notes (agree or disagree)? Why? @ -I reviewed and agree with nursing and triage notes Were old charts reviewed (outside hosp., previous admission, EMS record, old EKG, old radiological studies, urgent care reports/EKG's, halfway records)? Report findings @ -No old charts were reviewed Differential Diagnosis (chest pain, altered mental status, abdominal pain women, abdominal pain men, vaginal bleeding, weakness, fever, dyspnea, syncope, headache, dizziness, GI bleed, back pain, seizure, CVA, palpatations, mental health, musculoskeletal)? @ -Differential Mental Health Depression, anxiety, bipolar, psychosis, schizophrenia, borderline personality, situational depression, adjustment disorder, behavioral disorder, brain tumor, malingering, substance abuse, encephalopathy, medication reaction, dementia, hypothyroidism, degenerative neurologic disorder, lupus.... This is not meant to be all-inclusive list EKG interpreted by me (3pts min.). @ -As above X-rays interpreted by me (1pt min.). @ -None done CT interpreted by me (1pt min.). @ -None done U/S interpreted by me (1pt. min.). @ -None done What testing was considered but not performed or refused? (CT, X-rays, U/S, labs)? Why? @ -None What meds were considered but not given or refused? Why? @ -None Did you discuss the management of the patient with other professionals (professionals i.e. , PA, SENIOR J2EE DEVELOPER, lab, RT, psych nurse, social media editor, package sealer, teacher, human resources officer, pillowcase folder)? Give summary @ -No Was smoking cessation discussed for >3mins.? @ -No Was critical care preformed (if so, how long)? @ -No Were there social determinants of health that impacted care today? How? (Homelessness, low income, unemployed, alcoholism, drug addiction, transportation, low edu. Level, literacy, decrease access to med. care, intermediate, rehab)? @ -No Was there de-escalation of care discussed even if they declined (Discuss DNR or withdrawal of care, Hospice)? DNR status @ -No What co-morbidities impacted this encounter? (DM, HTN, Smoking, COPD, CAD, Cancer, CVA, ARF, Chemo, Hep., AIDS, mental health diagnosis, sleep apnea, morbid obesity)? @ -Developmental delay Was patient admitted / discharged? Hospital course, mention meds given and route, prescriptions, significant lab abnormalities, going to OR and other pertinent info. @ -22-year-old female brought in from her [place] [facility] for aggression. Physical exam is conducted. Patient is medically cleared for evaluation by EPS. EPS determines the patient is safe for discharge back to [facility]. Follow-up with PCP. Report back to ER with any new or worsening symptoms. I discussed this case with my attending Dr. Chew Undiagnosed new problem with uncertain prognosis? @ -No Drug Therapy requiring intensive monitoring for toxicity (Heparin, Nitro, Insulin, Cardizem)? @ -No Were any procedures done? @ -No Diagnosis/symptom? @ -Developmental delay Acute, or Chronic, or Acute on Chronic? @ -Chronic Uncomplicated (without systemic symptoms) or Complicated (systemic symptoms)? @ -Uncomplicated Side effects of treatment? @ -No Exacerbation, Progression, or Severe Exacerbation? @ -No Poses a threat to life or bodily function? How? (Chest pain, [place], [place], pneumonia, PE, COPD, DKA, ARF, appy, cholecystitis, CVA, Diverticulitis, Homicidal, Suicidal, threat to staff... and all critical care pts) @ -No - Lab Data Lab Results 02/28/23 Range/Units 20:25 Urine Opiates Screen Not Detected (NotDetected) Ur Oxycodone Screen Not Detected (NotDetected) Urine Methadone Screen Not Detected (NotDetected) Ur Propoxyphene Screen Not Detected (NotDetected) Ur Barbiturates Screen Not Detected (NotDetected) U Tricyclic Antidepress Not Detected (NotDetected) Ur Phencyclidine Scrn Not Detected (NotDetected) Ur Amphetamines Screen Not Detected (NotDetected) U Methamphetamines Scrn Not Detected (NotDetected) U Benzodiazepines Scrn Detected H (NotDetected) Urine Cocaine Screen Not Detected (NotDetected) U Marijuana (THC) Screen Not Detected (NotDetected) Disposition Clinical Impression: Cognitive developmental delay, Agitation Disposition: HOME SELF-CARE Condition: Good Additional Instructions: Follow-up with PCP. Report back to ER with any new or worsening symptoms. Is patient prescribed a controlled substance at d/c from ED?: No Referrals: Rashard Cobb DO [Primary Care Provider] - 1-2 days Time of Disposition: 23:16
[2023-02-28] MEDS ORDERED: risperiDONE 1 MG TAB PO STA (23:16)
[2023-02-28] MEDS ORDERED: LITHIUM CARBONATE 300 MG CAP PO STA (23:16)
[2023-02-28] MEDS ORDERED: OXcarbazepine 300 MG TAB PO SCH (23:30)
[2023-02-28] MEDS ORDERED: traZODone HCL 100 MG TAB PO SCH (23:30)
== END 2023-02-28 23:33 | disposition home or self-care (01) ==
LOC: EC 16:57
DX: F88 Other disorders of psychological development (principal); R45.1 Restlessness and agitation; Z88.5 Allergy status to narcotic agent; Z88.0 Allergy status to penicillin
CPT/HCPCS: 82075; 80306; 99285; 96372; J2060

== ENCOUNTER 2023-03-09 16:38 | Emergency (ER) | payer BC, OTHER ==
[2023-03-09 17:08] VITALS: BP 114/78; PULSE 92; RESP 18; TEMP 98.5
--- NOTE | 2023-03-09 17:18 | ED ---
General Adult HPI - General Chief complaint: Psychiatric Symptoms Stated complaint: Mental Health Time Seen by Provider: 03/09/23 16:40 Source: patient Mode of arrival: ambulatory Limitations: no limitations - History of Present Illness Initial comments: Dictation was produced using [employer] dictation software. please excuse any grammatical, word or spelling errors. Chief Complaint: 22-year-old female presents to the ER for psychiatric evaluation History of Present Illness: Is 22-year-old female she is brought in by law enforcement she is mentally delayed and headache hypertension with another care home member. She became violent and to keep broken hard plastic cup and tach or the staff members. Patient has a history of mental delay and aggressive behavior intermittently. She does report she is not apologetic for which she did. The ROS documented in this emergency department record has been reviewed and confirmed by me. Those systems with pertinent positive or negative responses have been documented in the HPI. All other systems are other negative and/or noncontributory. - Related Data Home Medications Medication Instructions Recorded Confirmed Multivitamins, Thera [Multivitamin 1 tab PO DAILY@0800 10/27/22 03/09/23 (formulary)] OXcarbazepine [Trileptal] 600 mg PO BID@0800,199910/27/22 03/09/23 l-Norgest/E.estradiol-E.estrad 1 tab PO DAILY@0800 11/05/22 03/09/23 [Seasonique 0.15-0.03-0.01 Tab] L.acidoph,Paracasei, B.lactis 1 cap PO BID@08,199912/13/22 03/09/23 [Probiotic] risperiDONE [RisperDAL] 1 mg PO TID@0800,1599,199912/13/22 03/09/23 traZODone HCL [Desyrel] 100 mg PO HS@199912/13/22 03/09/23 LORazepam [Ativan] 1 mg PO BID PRN 02/28/23 03/09/23 Calcium Carb/Vitamin D3/Vit K1 1 tab PO DAILY@0800 03/09/23 03/09/23 [Viactiv 650 mg-12.5 Mcg Chew] LORazepam [Ativan] 1 mg PO DAILY@1430 03/09/23 03/09/23 [place] Carbonate 600 mg PO BID@0800,2000 11/12/23 11/12/23 polyethylene glycoL 3350 [Miralax] 17 gm PO DAILY PRN 03/09/23 03/09/23 Allergies Allergy/AdvReac Type Severity Reaction Status Date / Time amoxicillin AdvReac Rash/Hives Verified 03/09/23 20:04 codeine AdvReac Unknown Verified 03/09/23 20:04 Childhood Review of Systems ROS Statement: Those systems with pertinent positive or pertinent negative responses have been documented in the HPI. ROS Other: All systems not noted in ROS Statement are negative. Past Medical History Past Medical History: No Reported History Additional Past Medical History / Comment(s): TRIO neuro development delay History of Any Multi-Drug Resistant Organisms: None Reported Past Surgical History: Hernia Repair Smoking Status: Never smoker Past Alcohol Use History: None Reported Past Drug Use History: None Reported General Exam - General Exam Comments Initial Comments: PHYSICAL EXAM: General Impression: Alert and oriented x3, not in acute distress HEENT: Normocephalic atraumatic, extra-ocular movements intact, pupils equal and reactive to light bilaterally, mucous membranes moist. Cardiovascular: Heart regular rate and rhythm Chest: Able to complete full sentences, no retractions, no tachypnea Musculoskeletal: no peripheral edema Motor: no focal deficits noted Neurological: CN II-XII grossly intact, no focal motor or sensory deficits noted Skin: Intact with no visualized rashes Psych: Normal affect and mood Limitations: no limitations Course Vital Signs 03/09/23 16:45 Temperature 98.5 F Pulse Rate 92 Respiratory 18 Rate Blood Pressure 114/78 O2 Sat by Pulse 97 Oximetry Medical Decision Making - Medical Decision Making Was pt. sent in by a medical professional or institution (, PA, WELDER EXPERIMENTAL, urgent care, hospital, or correction...) When possible be specific @ -No Did you speak to anyone other than the patient for history (EMS, parent, family, police, friend...)? What history was obtained from this source @ -No Did you review nursing and triage notes (agree or disagree)? Why? @ -I reviewed and agree with nursing and triage notes Were old charts reviewed (outside hosp., previous admission, EMS record, old EKG, old radiological studies, urgent care reports/EKG's, correction records)? Report findings @ -No old charts were reviewed Differential Diagnosis (chest pain, altered mental status, abdominal pain women, abdominal pain men, vaginal bleeding, musculoskeletal, weakness, fever, dyspnea, syncope, headache, dizziness, GI bleed, back pain, seizure, CVA, palpatations, mental health)? @ -Differential Mental Health: Depression, anxiety, bipolar, psychosis, schizophrenia, borderline personality, situational depression, adjustment disorder, behavioral disorder, brain tumor, malingering, substance abuse, encephalopathy, medication reaction, dementia, hypothyroidism, degenerative neurologic disorder, lupus.... This is not meant to be all-inclusive list EKG interpreted by me (3pts min.). @ -None done X-rays interpreted by me (1pt min.). @ -None done CT interpreted by me (1pt min.). @ -None done U/S interpreted by me (1pt. min.). @ -None done What testing was considered but not performed or refused? (CT, X-rays, U/S, labs)? Why? @ -None What meds were considered but not given or refused? Why? @ -None Did you discuss the management of the patient with other professionals (professionals i.e. , PA, WELDER EXPERIMENTAL, lab, RT, psych nurse, social services director, agricultural commodities inspector, teacher, global chief experience officer, shelter case manager)? Give summary @ -No Was smoking cessation discussed for >3mins.? @ -No Was critical care preformed (if so, how long)? @ -No Were there social determinants of health that impacted care today? How? (Homelessness, low income, unemployed, alcoholism, drug addiction, transportation, low edu. Level, literacy, decrease access to med. care, alf, rehab)? @ -No Was there de-escalation of care discussed even if they declined (Discuss DNR or withdrawal of care, Hospice)? DNR status @ -No What co-morbidities impacted this encounter? (DM, HTN, Smoking, COPD, CAD, Cancer, CVA, ARF, Chemo, Hep., AIDS, mental health diagnosis, sleep apnea, morbid obesity)? @ -None Was patient admitted / discharged? Hospital course, mention meds given and route, prescriptions, significant lab abnormalities, going to OR and other pertinent info. @ -22-year-old female with history of developmental and mental delay presents to the ER for aggressive behavior. Vital signs stable. Patient will appear at the bedside. Patient evaluated by EPS. They did come up with the plan and per care home staff they are willing to accept the patient back to the care home tomorrow. Patient will be boarding in the emergency department until tomorrow morning were patient's father will come. The patient and personally bring her back to the care home Undiagnosed new problem with uncertain prognosis? @ -No Drug Therapy requiring intensive monitoring for toxicity (Heparin, Nitro, Insulin, Cardizem)? @ -No Were any procedures done? @ -No Diagnosis/symptom? Acute, or Chronic, or Acute on Chronic? Uncomplicated (without systemic symptoms) or Complicated (systemic symptoms)? @ -Aggressive behavior Side effects of treatment? @ -No Exacerbation, Progression, or Severe Exacerbation? @ -No Poses a threat to life or bodily function? How? (Chest pain, [place], [place], pneumonia, PE, COPD, DKA, ARF, appy, cholecystitis, CVA, Diverticulitis, Homicidal, Suicidal, threat to staff... and all critical care pts) @ -No Disposition Clinical Impression: Aggressive behavior Disposition: HOME SELF-CARE Is patient prescribed a controlled substance at d/c from ED?: No Referrals: Rashard Cobb DO [Primary Care Provider] - 1-2 days
== END 2023-03-10 10:15 | disposition home or self-care (01) ==
LOC: EC 16:38
DX: R45.6 Violent behavior (principal); Z88.5 Allergy status to narcotic agent; Z88.0 Allergy status to penicillin
CPT/HCPCS: 82075; 99285

== ENCOUNTER 2023-03-20 16:39 | Emergency (ER) | payer BC, OTHER ==
--- NOTE | 2023-03-20 17:31 | ED ---
Psych HPI - General Chief Complaint: Psychiatric Symptoms Stated Complaint: Mental Health Time Seen by Provider: 03/20/23 17:06 Source: patient Mode of arrival: ambulatory - History of Present Illness Initial Comments: 22-year-old female presenting for psychiatric evaluation. Patient has history of cognitive delay. She was recently kicked out of her longterm. Father and stepmother at bedside state that the patient has been increasingly agitated and violent at home. Stepmother states that as soon as her father walks away she becomes increasingly agitated. They have been giving regularly scheduled medications but has stopped giving when necessary Ativan as they state that it seems to be possibly worsening her agitation as the patient is still violent but becomes drowsy which makes her more irritated. No physical symptoms at this time. - Related Data Home Medications Medication Instructions Recorded Confirmed Multivitamins, Thera [Multivitamin 1 tab PO DAILY@0800 10/27/22 03/20/23 (formulary)] OXcarbazepine [Trileptal] 600 mg PO BID@0800,199910/27/22 03/20/23 l-Norgest/E.estradiol-E.estrad 1 tab PO DAILY@0800 11/05/22 03/20/23 [Seasonique 0.15-0.03-0.01 Tab] L.acidoph,Paracasei, B.lactis 1 cap PO BID@0800,199912/13/22 03/20/23 [Probiotic] risperiDONE [RisperDAL] 1 mg PO TID@0800,1600,199912/13/22 03/20/23 traZODone HCL [Desyrel] 100 mg PO HS@199912/13/22 03/20/23 Calcium Carb/Vitamin D3/Vit K1 1 tab PO DAILY@0800 03/09/23 03/20/23 [Viactiv 650 mg-12.5 Mcg Chew] LORazepam [Ativan] 1 mg PO DAILY@1430 03/09/23 03/20/23 [place] Carbonate 600 mg PO BID@0800,199903/09/23 03/20/23 polyethylene glycoL 3350 [Miralax] 17 gm PO DAILY PRN 03/09/23 03/20/23 Allergies Allergy/AdvReac Type Severity Reaction Status Date / Time amoxicillin AdvReac Rash/Hives Verified 03/20/23 19:15 codeine AdvReac Unknown Verified 03/20/23 19:15 Childhood Review of Systems ROS Statement: Those systems with pertinent positive or pertinent negative responses have been documented in the HPI. ROS Other: All systems not noted in ROS Statement are negative. Past Medical History Past Medical History: No Reported History Additional Past Medical History / Comment(s): TRIO neuro development delay History of Any Multi-Drug Resistant Organisms: None Reported Past Surgical History: Hernia Repair Past Psychological History: Anxiety, Depression, Panic Disorder Smoking Status: Never smoker Past Alcohol Use History: None Reported Past Drug Use History: None Reported General Exam Limitations: no limitations General appearance: alert, in no apparent distress Head exam: Present: atraumatic, normocephalic, normal inspection Eye exam: Present: normal appearance, EOMI Neck exam: Present: normal inspection, full ROM Respiratory exam: Present: normal lung sounds bilaterally. Absent: respiratory distress, wheezes, rales, rhonchi, stridor Cardiovascular Exam: Present: regular rate, normal rhythm, normal heart sounds. Absent: systolic murmur, diastolic murmur, rubs, gallop, clicks Neurological exam: Present: alert (Orientation at baseline) Psychiatric exam: Present: normal affect, normal mood Skin exam: Present: warm, dry, intact, normal color. Absent: rash Course Vital Signs 03/20/23 03/20/23 16:44 20:46 Temperature 98.4 F 98.0 F Pulse Rate 61 68 Respiratory 20 18 Rate Blood Pressure 106/72 121/74 O2 Sat by Pulse 99 98 Oximetry Medical Decision Making - Medical Decision Making Was pt. sent in by a medical professional or institution (, PA, MACHINE PULLER OVER, urgent care, hospital, or retirement...) When possible be specific @ -No Did you speak to anyone other than the patient for history (EMS, parent, family, police, friend...)? What history was obtained from this source @ -History obtained from father and stepmother at bedside Did you review nursing and triage notes (agree or disagree)? Why? @ -I reviewed and agree with nursing and triage notes Were old charts reviewed (outside hosp., previous admission, EMS record, old EKG, old radiological studies, urgent care reports/EKG's, retirement records)? Report findings @ -No old charts were reviewed Differential Diagnosis (chest pain, altered mental status, abdominal pain women, abdominal pain men, vaginal bleeding, weakness, fever, dyspnea, syncope, headache, dizziness, GI bleed, back pain, seizure, CVA, palpatations, mental health, musculoskeletal)? @ -Differential Mental Health Depression, anxiety, bipolar, psychosis, schizophrenia, borderline personality, situational depression, adjustment disorder, behavioral disorder, brain tumor, malingering, substance abuse, encephalopathy, medication reaction, dementia, hypothyroidism, degenerative neurologic disorder, lupus.... This is not meant to be all-inclusive list EKG interpreted by me (3pts min.). @ -As above X-rays interpreted by me (1pt min.). @ -None done CT interpreted by me (1pt min.). @ -None done U/S interpreted by me (1pt. min.). @ -None done What testing was considered but not performed or refused? (CT, X-rays, U/S, labs)? Why? @ -None What meds were considered but not given or refused? Why? @ -None Did you discuss the management of the patient with other professionals (professionals i.e. , PA, MACHINE PULLER OVER, lab, RT, psych nurse, forensic social worker, produce laborer, teacher, geological technical officer, piano case and bench assembler)? Give summary @ -No Was smoking cessation discussed for >3mins.? @ -No Was critical care preformed (if so, how long)? @ -No Were there social determinants of health that impacted care today? How? (Homelessness, low income, unemployed, alcoholism, drug addiction, transportation, low edu. Level, literacy, decrease access to med. care, retirement, rehab)? @ -No Was there de-escalation of care discussed even if they declined (Discuss DNR or withdrawal of care, Hospice)? DNR status @ -No What co-morbidities impacted this encounter? (DM, HTN, Smoking, COPD, CAD, Cancer, CVA, ARF, Chemo, Hep., AIDS, mental health diagnosis, sleep apnea, morbid obesity)? @ -None Was patient admitted / discharged? Hospital course, mention meds given and route, prescriptions, significant lab abnormalities, going to OR and other pertinent info. @ -2-year-old female with history of developmental delay presenting for psychiatric evaluation. Family states that the patient has been increasingly agitated and impulsive. She was recently kicked out of her longterm. History and physical were conducted. Patient is medically cleared and is evaluated by EPS. APS determines that the patient is safe for discharge home and provides the family with resources. Follow-up with PCP. Report back to ER with any new or worsening symptoms. Discussed return parameters and answered all questions. Patient's parents conveyed verbal understanding and agreed to the plan. I discussed this case in detail with my attending Dr. Severino Undiagnosed new problem with uncertain prognosis? @ -No Drug Therapy requiring intensive monitoring for toxicity (Heparin, Nitro, Insulin, Cardizem)? @ -No Were any procedures done? @ -No Diagnosis/symptom? @ -Agitation, cognitive delay Acute, or Chronic, or Acute on Chronic? @ -Acute Uncomplicated (without systemic symptoms) or Complicated (systemic symptoms)? @ -Uncomplicated Side effects of treatment? @ -No Exacerbation, Progression, or Severe Exacerbation? @ -No Poses a threat to life or bodily function? How? (Chest pain, [place], [place], pneumonia, PE, COPD, DKA, ARF, appy, cholecystitis, CVA, Diverticulitis, Homicidal, Suicidal, threat to staff... and all critical care pts) @ -No - Lab Data Lab Results 03/20/23 Range/Units 17:16 Urine Color Colorless Urine Appearance Clear (Clear) Urine pH 7.0 (5.0-8.0) Ur Specific [place] 1.014 (1.001-1.035) Urine Protein Negative (Negative) Urine Glucose (UA) Negative (Negative) Urine Ketones Negative (Negative) Urine Blood Negative (Negative) Urine Nitrite Negative (Negative) Urine Bilirubin Negative (Negative) Urine Urobilinogen <2.0 (<2.0) mg/dL Ur Leukocyte Esterase Negative (Negative) Urine Opiates Screen Not Detected (NotDetected) Ur Oxycodone Screen Not Detected (NotDetected) Urine Methadone Screen Not Detected (NotDetected) Ur Propoxyphene Screen Not Detected (NotDetected) Ur Barbiturates Screen Not Detected (NotDetected) U Tricyclic Antidepress Not Detected (NotDetected) Ur Phencyclidine Scrn Not Detected (NotDetected) Ur Amphetamines Screen Not Detected (NotDetected) U Methamphetamines Scrn Not Detected (NotDetected) U Benzodiazepines Scrn Not Detected (NotDetected) Urine Cocaine Screen Not Detected (NotDetected) U Marijuana (THC) Screen Not Detected (NotDetected) Disposition Clinical Impression: Agitation, Cognitive developmental delay, Aggressive behavior Disposition: HOME SELF-CARE Condition: Good Additional Instructions: Follow-up with PCP and resources established by EPS. Report back to ER with any new or worsening symptoms. Is patient prescribed a controlled substance at d/c from ED?: No Referrals: Rashard Cobb DO [Primary Care Provider] - 1-2 days Time of Disposition: 20:35
[2023-03-20 18:22] LABS: Appearance,Urine Clear (Clear); Bilirubin,Urine Negative (Negative); Blood,Urine Negative (Negative); Color,Urine Colorless; Glucose,Urine (UA) Negative (Negative); Ketones,Urine Negative (Negative); Leukocyte Esterase,Urine Negative (Negative); Nitrite,Urine Negative (Negative); Protein,Urine Negative (Negative); Specific Gravity,Urine 1.014 (1.001-1.035); Urobilinogen,Urine <2.0 mg/dL (<2.0)
[2023-03-20 18:37] LABS: Amphetamine Screen,Urine Not Detected (NotDetected); Barbiturate Screen,Urine Not Detected (NotDetected); Benzodiazepines Screen,Urine Not Detected (NotDetected); Cocaine Screen,Urine Not Detected (NotDetected); Methadone Screen, Urine Not Detected (NotDetected); Opiate Screen,Urine Not Detected (NotDetected); Oxycodone Screen, Urine Not Detected (NotDetected); Phencyclidine Screen,Urine Not Detected (NotDetected); Tricyclic Antidepressant,Urine Not Detected (NotDetected); Urn Cannabinoid Scrn Not Detected (NotDetected)
[2023-03-20 21:06] VITALS: BP 121/74; PULSE 68; RESP 18; TEMP 98
== END 2023-03-20 21:02 | disposition home or self-care (01) ==
LOC: EC 16:39
DX: R45.1 Restlessness and agitation (principal); F88 Other disorders of psychological development; R45.6 Violent behavior; F41.9 Anxiety disorder, unspecified; F32.A Depression, unspecified; Z88.0 Allergy status to penicillin; Z88.5 Allergy status to narcotic agent; Z79.899 Other long term (current) drug therapy
CPT/HCPCS: 80306; 81003; 82075; 99285

== ENCOUNTER 2023-04-26 20:17 | Inpatient (IN) | payer BC, OTHER ==
--- NOTE | 2023-04-26 21:27 | ED ---
Psych HPI - General Source: EMS Mode of arrival: EMS <Charisma Mayers - Last Filed: 04/27/23 17:28> <SinghtariHerbie Vera - Last Filed: 04/28/23 06:45> - General Chief Complaint: Psychiatric Symptoms Stated Complaint: Mental Health Time Seen by Provider: 04/26/23 20:34 - History of Present Illness Initial Comments: 22-year-old female with history of cognitive delay presenting for evaluation after violent outbursts at her halfway. Patient was brought in by PD. Patient tells me "I want to go back to [place]." She has been seen here on multiple occasions for violent outbursts. She is currently calm and cooperative. She tells me that she does not want to hurt herself or others. (Charisma Mayers) - Related Data Home Medications Medication Instructions Recorded Confirmed traZODone HCL [Desyrel] 100 mg PO HS 12/13/22 04/26/23 Calcium Carb/Vitamin D3/Vit K1 1 tab PO DAILY@0800 03/09/23 04/26/23 [Viactiv 650 mg-12.5 Mcg Chew] [place] Carbonate 1,200 mg PO HS 03/09/23 04/26/23 polyethylene glycoL 3350 [Miralax] 17 gm PO DAILY 03/09/23 04/26/23 [place] 1 tab PO DAILY 04/26/23 04/26/23 Divalproex Sodium [Depakote] 125 mg PO BID 04/26/23 04/26/23 Divalproex [Depakote] 500 mg PO BID 04/26/23 04/26/23 Ibuprofen [Motrin] 600 mg PO Q6HR PRN 04/26/23 04/26/23 Linaclotide [Linzess] 290 mcg PO HS PRN 04/26/23 04/26/23 OLANZapine [ZyPREXA] 5 mg PO HS 04/26/23 04/26/23 Allergies Allergy/AdvReac Type Severity Reaction Status Date / Time amoxicillin AdvReac Rash/Hives Verified 04/26/23 21:03 codeine AdvReac Unknown Verified 04/26/23 21:03 Childhood Review of Systems ROS Other: All systems not noted in ROS Statement are negative. <Charisma Mayers - Last Filed: 04/27/23 17:28> ROS Other: All systems not noted in ROS Statement are negative. <Herbie Stauffer - Last Filed: 04/28/23 06:45> ROS Statement: Those systems with pertinent positive or pertinent negative responses have been documented in the HPI. Past Medical History Past Medical History: No Reported History Additional Past Medical History / Comment(s): TRIO neuro development delay History of Any Multi-Drug Resistant Organisms: None Reported Past Surgical History: Hernia Repair Past Psychological History: Anxiety, Depression, Panic Disorder Smoking Status: Never smoker Past Alcohol Use History: None Reported Past Drug Use History: None Reported <Charisma Mayers - Last Filed: 04/27/23 17:28> General Exam General appearance: alert, in no apparent distress Head exam: Present: atraumatic, normocephalic Eye exam: Present: normal appearance Neck exam: Present: normal inspection Respiratory exam: Absent: respiratory distress Cardiovascular Exam: Present: regular rate Neurological exam: Present: alert (Orientation at baseline) Psychiatric exam: Present: normal affect, normal mood Skin exam: Present: warm, dry <Charisma Mayers - Last Filed: 04/27/23 17:28> Course Vital Signs 04/26/23 04/27/23 04/28/23 20:23 09:05 05:50 Temperature 98.0 F 98.0 F 97.9 F Pulse Rate 74 105 H 85 Respiratory 22 18 17 Rate Blood Pressure 100/66 101/63 107/75 O2 Sat by Pulse 97 97 100 Oximetry Procedures - Restraint - Face to Face Restraint Occurrence 1 Patient's Immediate Situation: Endangers self safety, Endangers others' safety, Endangers staff safety, Violent behavior Patient's Reaction to the Intervention: Uncooperative, Belligerent, Aggressive, Combative Patient's Medical & Behavioral Condition: Awake, Alert, Agitated Need to Continue or Terminate Restraint or Seclusion: Continue Face to Face Eval of Restraint Date: 04/28/23 Face to Face Eval of Restraint Time: 06:43 <Herbie Stauffer - Last Filed: 04/28/23 06:45> Medical Decision Making - Lab Data Result diagrams: 04/27/23 01:49 04/27/23 01:49 <Charisma Mayers - Last Filed: 04/27/23 17:28> - Lab Data Result diagrams: 04/27/23 01:49 04/27/23 01:49 <Herbie Stauffer N - Last Filed: 04/28/23 06:45> - Medical Decision Making Was pt. sent in by a medical professional or institution (, JOO, LOCKSTITCH COAT JOINER, urgent care, hospital, or [facility]...) When possible be specific @ -No Did you speak to anyone other than the patient for history (EMS, parent, family, police, friend...)? What history was obtained from this source @ -No Did you review nursing and triage notes (agree or disagree)? Why? @ -I reviewed and agree with nursing and triage notes Were old charts reviewed (outside hosp., previous admission, EMS record, old EKG, old radiological studies, urgent care reports/EKG's, [facility] records)? Report findings @ -No old charts were reviewed Differential Diagnosis (chest pain, altered mental status, abdominal pain women, abdominal pain men, vaginal bleeding, weakness, fever, dyspnea, syncope, headache, dizziness, GI bleed, back pain, seizure, CVA, palpatations, mental health, musculoskeletal)? @ -Differential Mental Health Depression, anxiety, bipolar, psychosis, schizophrenia, borderline personality, situational depression, adjustment disorder, behavioral disorder, brain tumor, malingering, substance abuse, encephalopathy, medication reaction, dementia, hypothyroidism, degenerative neurologic disorder, lupus.... This is not meant to be all-inclusive list EKG interpreted by me (3pts min.). @ -As above X-rays interpreted by me (1pt min.). @ -None done CT interpreted by me (1pt min.). @ -CT shows no acute intracranial process or cervical spine fracture U/S interpreted by me (1pt. min.). @ -None done What testing was considered but not performed or refused? (CT, X-rays, U/S, labs)? Why? @ -None What meds were considered but not given or refused? Why? @ -None Did you discuss the management of the patient with other professionals (professionals i.e. JOO Cheung, LOCKSTITCH COAT JOINER, lab, RT, psych nurse, forensic social worker, commercial lines account executive, teacher, assurance officer, housing case manager)? Give summary @ -I spoke with EPS nurse Doretha, she recommends mental-health boarding. She also informs me that the staff at the halfway told her that the patient has been banging her head quite violently against the wall Was smoking cessation discussed for >3mins.? @ -No Was critical care preformed (if so, how long)? @ -No Were there social determinants of health that impacted care today? How? (Homelessness, low income, unemployed, alcoholism, drug addiction, transportation, low edu. Level, literacy, decrease access to med. care, penitentiary, rehab)? @ -No Was there de-escalation of care discussed even if they declined (Discuss DNR or withdrawal of care, Hospice)? DNR status @ -No What co-morbidities impacted this encounter? (DM, HTN, Smoking, COPD, CAD, Cancer, CVA, ARF, Chemo, Hep., AIDS, mental health diagnosis, sleep apnea, morbid obesity)? @ -None Was patient admitted / discharged? Hospital course, mention meds given and route, prescriptions, significant lab abnormalities, going to OR and other pertinent info. @ -22-year-old female presenting for mental health evaluation from her halfway, she has been showing increasingly violent behaviors and increased agitation. She is evaluated by EPS who recommends mental-health boarding. EPS informs me that the patient has been taking her head against the wall at the halfway, CT is ordered which shows no acute intracranial process or cervical spine fracture. EPS will arrange for transfer. My attending is Dr. Ko. Undiagnosed new problem with uncertain prognosis? @ -No Drug Therapy requiring intensive monitoring for toxicity (Heparin, Nitro, Insulin, Cardizem)? @ -No Were any procedures done? @ -No Diagnosis/symptom? @ -Agitation, cognitive delay Acute, or Chronic, or Acute on Chronic? @ -Acute on chronic Uncomplicated (without systemic symptoms) or Complicated (systemic symptoms)? @ -Complicated Side effects of treatment? @ -No Exacerbation, Progression, or Severe Exacerbation? @ -No Poses a threat to life or bodily function? How? (Chest pain, [place], [place], pneumonia, PE, COPD, DKA, ARF, appy, cholecystitis, CVA, Diverticulitis, Homicidal, Suicidal, threat to staff... and all critical care pts) @ -Yes, threat to staff and other patients at the halfway (Charisma Mayers) - Lab Data Lab Results 1204/26/23 04/26/23 Range/Units 20:57 22:54 22:54 WBC (3.8-10.6) k/uL RBC (3.80-5.40) m/uL Hgb (11.4-16.0) gm/dL Hct (34.0-46.0) % MCV (80.0-100.0) fL MCH (25.0-35.0) pg MCHC (31.0-37.0) g/dL RDW (11.5-15.5) % Plt Count (150-450) k/uL MPV Neutrophils % % Lymphocytes % % Monocytes % % Eosinophils % % Basophils % % Neutrophils # (1.3-7.7) k/uL Lymphocytes # (1.0-4.8) k/uL Monocytes # (0-1.0) k/uL Eosinophils # (0-0.7) k/uL Basophils # (0-0.2) k/uL Sodium (137-145) mmol/L Potassium (3.5-5.1) mmol/L Chloride (98-107) mmol/L Carbon Dioxide (22-30) mmol/L Anion Gap mmol/L BUN (7-17) mg/dL Creatinine (0.52-1.04) mg/dL Est GFR (CKD-EPI)AfAm (>60 ml/min/1.73 sqM) Est GFR (CKD-EPI)NonAf (>60 ml/min/1.73 sqM) Glucose (74-99) mg/dL Calcium (8.4-10.2) mg/dL Total Bilirubin (0.2-1.3) mg/dL AST (14-36) U/L ALT (4-34) U/L Alkaline Phosphatase (38-126) U/L Total Protein (6.3-8.2) g/dL Albumin (3.5-5.0) g/dL Urine Color Colorless Urine Appearance Clear (Clear) Urine pH 6.5 (5.0-8.0) Ur Specific [place] 1.013 (1.001-1.035) Urine Protein Trace H (Negative) Urine Glucose (UA) Negative (Negative) Urine Ketones Negative (Negative) Urine Blood Negative (Negative) Urine Nitrite Negative (Negative) Urine Bilirubin Negative (Negative) Urine Urobilinogen <2.0 (<2.0) mg/dL Ur Leukocyte Esterase Trace H (Negative) Urine RBC 1 (0-5) /hpf Urine WBC 3 (0-5) /hpf Ur Squamous Epith Cells 1 (0-4) /hpf Hyaline Casts 14 H (0-2) /lpf Urine Mucus Occasional H (None) /hpf Urine HCG, Qual Not Detected (Not Detectd) Urine Opiates Screen Not Detected (NotDetected) Ur Oxycodone Screen Not Detected (NotDetected) Urine Methadone Screen Not Detected (NotDetected) Ur Barbiturates Screen Not Detected (NotDetected) U Tricyclic Antidepress Not Detected (NotDetected) Ur Phencyclidine Scrn Not Detected (NotDetected) Ur Amphetamines Screen Not Detected (NotDetected) U Methamphetamines Scrn Not Detected (NotDetected) U Benzodiazepines Scrn Detected H (NotDetected) Urine Cocaine Screen Not Detected (NotDetected) U Marijuana (THC) Screen Not Detected (NotDetected) Influenza Type A (PCR) (Not Detectd) Influenza Type B (PCR) (Not Detectd) RSV (PCR) (Not Detectd) SARS-CoV-2 (PCR) (Not Detectd) 04/27/23 04/27/23 04/27/23 Range/Units 01:49 01:49 01:49 WBC 11.3 H (3.8-10.6) k/uL RBC 4.13 (3.80-5.40) m/uL Hgb 12.5 (11.4-16.0) gm/dL Hct 37.5 (34.0-46.0) % MCV 90.8 (80.0-100.0) fL MCH 30.4 (25.0-35.0) pg MCHC 33.5 (31.0-37.0) g/dL RDW 12.8 (11.5-15.5) % Plt Count 345 (150-450) k/uL MPV 7.2 Neutrophils % 66 % Lymphocytes % 21 % Monocytes % 8 % Eosinophils % 4 % Basophils % 0 % Neutrophils # 7.4 (1.3-7.7) k/uL Lymphocytes # 2.3 (1.0-4.8) k/uL Monocytes # 0.8 (0-1.0) k/uL Eosinophils # 0.4 (0-0.7) k/uL Basophils # 0.1 (0-0.2) k/uL Sodium 140 (137-145) mmol/L Potassium 4.1 (3.5-5.1) mmol/L Chloride 108 H (98-107) mmol/L Carbon Dioxide 23 (22-30) mmol/L Anion Gap 9 mmol/L BUN 10 (7-17) mg/dL Creatinine 0.65 (0.52-1.04) mg/dL Est GFR (CKD-EPI)AfAm >90 (>60 ml/min/1.73 sqM) Est GFR (CKD-EPI)NonAf >90 (>60 ml/min/1.73 sqM) Glucose 94 (74-99) mg/dL Calcium 9.0 (8.4-10.2) mg/dL Total Bilirubin 0.3 (0.2-1.3) mg/dL AST 19 (14-36) U/L ALT 15 (4-34) U/L Alkaline Phosphatase 73 (38-126) U/L Total Protein 6.1 L (6.3-8.2) g/dL Albumin 3.4 L (3.5-5.0) g/dL Urine Color Urine Appearance (Clear) Urine pH (5.0-8.0) Ur Specific [place] (1.001-1.035) Urine Protein (Negative) Urine Glucose (UA) (Negative) Urine Ketones (Negative) Urine Blood (Negative) Urine Nitrite (Negative) Urine Bilirubin (Negative) Urine Urobilinogen (<2.0) mg/dL Ur Leukocyte Esterase (Negative) Urine RBC (0-5) /hpf Urine WBC (0-5) /hpf Ur Squamous Epith Cells (0-4) /hpf Hyaline Casts (0-2) /lpf Urine Mucus (None) /hpf Urine HCG, Qual (Not Detectd) Urine Opiates Screen (NotDetected) Ur Oxycodone Screen (NotDetected) Urine Methadone Screen (NotDetected) Ur Barbiturates Screen (NotDetected) U Tricyclic Antidepress (NotDetected) Ur Phencyclidine Scrn (NotDetected) Ur Amphetamines Screen (NotDetected) U Methamphetamines Scrn (NotDetected) U Benzodiazepines Scrn (NotDetected) Urine Cocaine Screen (NotDetected) U Marijuana (THC) Screen (NotDetected) Influenza Type A (PCR) Not Detected (Not Detectd) Influenza Type B (PCR) Not Detected (Not Detectd) RSV (PCR) Not Detected (Not Detectd) SARS-CoV-2 (PCR) Not Detected (Not Detectd) Disposition <Charisma Mayers - Last Filed: 04/27/23 17:28> <Herbie Stauffer - Last Filed: 04/28/23 06:45> Clinical Impression: Cognitive developmental delay, Agitation Disposition: TRANSFER TO PSYCH HOSP/UNIT Condition: Fair Referrals: Rashard Cobb DO [Primary Care Provider] - 1-2 days
[2023-04-26 22:05] LABS: Amphetamine Screen,Urine Not Detected (NotDetected); Barbiturate Screen,Urine Not Detected (NotDetected); Benzodiazepines Screen,Urine Detected (NotDetected); Cocaine Screen,Urine Not Detected (NotDetected); Methadone Screen, Urine Not Detected (NotDetected); Opiate Screen,Urine Not Detected (NotDetected); Oxycodone Screen, Urine Not Detected (NotDetected); Phencyclidine Screen,Urine Not Detected (NotDetected); Tricyclic Antidepressant,Urine Not Detected (NotDetected); Urn Cannabinoid Scrn Not Detected (NotDetected)
[2023-04-26] MEDS: LORazepam 2 MG/ML INJ IM PRN (23:16)
[2023-04-26 23:20] LABS: Appearance,Urine Clear (Clear); Bilirubin,Urine Negative (Negative); Blood,Urine Negative (Negative); Color,Urine Colorless; Glucose,Urine (UA) Negative (Negative); Hyaline Casts,Urine 14 /lpf (0-2); Ketones,Urine Negative (Negative); Leukocyte Esterase,Urine Trace (Negative); Mucus,Urine Occasional /hpf; Nitrite,Urine Negative (Negative); PH, Urine 6.5 (5.0-8.0); Protein,Urine Trace (Negative); RBC,Urine 1 /hpf (0-5); Specific Gravity,Urine 1.013 (1.001-1.035); Squamous Epithelial Cell,Urine 1 /hpf (0-4); Urobilinogen,Urine <2.0 mg/dL (<2.0); WBC,Urine 3 /hpf (0-5)
--- NOTE | 2023-04-27 01:43 | CT ---
EXAM: CT Head Without Intravenous Contrast CLINICAL HISTORY: ITS.REASON CT Reason: head injury TECHNIQUE: Axial computed tomography images of the head/brain without intravenous contrast. CTDI is 45.2 mGy and DLP is 1004 mGy-cm. This CT exam was performed using one or more of the following dose reduction techniques: automated exposure control, adjustment of the mA and/or kV according to patient size, and/or use of iterative reconstruction technique. COMPARISON: No relevant prior studies available. FINDINGS: Brain: No hemorrhage or mass effect. Ventricles: No hydrocephalus. Bones/joints: Unremarkable. Soft tissues: Unremarkable. Sinuses: No air fluid level. Mastoid air cells: Clear. IMPRESSION: No acute hemorrhage, hydrocephalus, or mass effect. EXAM: CT Cervical Spine Without Intravenous Contrast CLINICAL HISTORY: ITS.REASON CT Reason: head injury TECHNIQUE: Axial computed tomography images of the cervical spine without intravenous contrast. CTDI is 14.5 mGy and DLP is 396.6 mGy-cm. This CT exam was performed using one or more of the following dose reduction techniques: automated exposure control, adjustment of the mA and/or kV according to patient size, and/or use of iterative reconstruction technique. COMPARISON: No relevant prior studies available. FINDINGS: Vertebrae: No acute fracture. Discs/spinal canal/neural foramina: No significant degenerative changes. Soft tissues: No prevertebral swelling. IMPRESSION: No acute fracture or subluxation.
[2023-04-27 02:00] LABS: Basophils # (A) 0.1 k/uL (0-0.2); Basophils % (A) 0 %; Eosinophils # (A) 0.4 k/uL (0-0.7); Eosinophils % (A) 4 %; HCT 37.5 % (34.0-46.0); HGB 12.5 gm/dL (11.4-16.0); Lymphocytes # (A) 2.3 k/uL (1.0-4.8); Lymphocytes % (A) 21 %; MCH 30.4 pg (25.0-35.0); MCHC 33.5 g/dL (31.0-37.0); MCV 90.8 fL (80.0-100.0); Mean Platelet Volume 7.2; Monocytes # (A) 0.8 k/uL (0-1.0); Monocytes % (A) 8 %; Neutrophils # (A) 7.4 k/uL (1.3-7.7); Neutrophils % (A) 66 %; Platelet Count 345 k/uL (150-450); RBC 4.13 m/uL (3.80-5.40); RDW 12.8 % (11.5-15.5); WBC 11.3 k/uL (3.8-10.6)
[2023-04-27 02:13] LABS: ALT 15 U/L (4-34); AST 19 U/L (14-36); African American GFR (CKD) >90 (>60 ml/min/1.73 sqM); Albumin 3.4 g/dL (3.5-5.0); Alkaline Phosphatase 73 U/L (38-126); Anion Gap 9 mmol/L; Blood Urea Nitrogen 10 mg/dL (7-17); Carbon Dioxide 23 mmol/L (22-30); Chloride 108 mmol/L (98-107); Glucose 94 mg/dL (74-99); Non-African American GFR(CKD) >90 (>60 ml/min/1.73 sqM); Potassium 4.1 mmol/L (3.5-5.1); Sodium 140 mmol/L (137-145); Total Bilirubin 0.3 mg/dL (0.2-1.3); Total Protein 6.1 g/dL (6.3-8.2)
[2023-04-27] MEDS: LORazepam 2 MG/ML INJ IM PRN ×3 (11:41→23:07)
[2023-04-27] MEDS ORDERED: ZIPRASIDONE 20 MG VIAL IM STA (12:20)
[2023-04-27] MEDS ORDERED: OLANZapine 10 MG VIAL IM STA (17:41)
[2023-04-28] MEDS ORDERED: ZIPRASIDONE 20 MG VIAL IM STA (00:40)
[2023-04-28] MEDS: LORazepam 2 MG/ML INJ IM PRN ×2 (06:16→23:08)
[2023-04-28] MEDS ORDERED: NON FORMULARY DRUG (Linaclotide [Linzess] 290 MCG Capsule) PO PRN (06:46)
[2023-04-28] MEDS: DIVALPROEX SPRINKLE 125 MG CAP.SPRINK PO SCH ×2 (10:29→20:41)
[2023-04-28] MEDS: DIVALPROEX 500 MG TABLET.DR PO SCH ×2 (10:29→20:41)
[2023-04-28] MEDS: DAYSEE PO SCH (10:30)
[2023-04-28] MEDS: polyethylene glycoL 3350 17 GM POWD.PACK PO SCH (10:30)
[2023-04-28] MEDS: CALCIUM CARB-VIT D 500 MG-5 MCG TAB PO SCH (10:30)
[2023-04-28] MEDS: traZODone HCL 100 MG TAB PO SCH (20:41)
[2023-04-28] MEDS: OLANZapine 5 MG TAB PO SCH (20:41)
[2023-04-28] MEDS: LITHIUM CARBONATE 300 MG CAP PO SCH (21:06)
--- NOTE | 2023-04-28 22:09 | ED ---
Medical Decision Making - Lab Data Result diagrams: 04/27/23 01:49 04/27/23 01:49 <Hermann Ko - Last Filed: 04/28/23 22:09> - Lab Data Result diagrams: 04/27/23 01:49 04/27/23 01:49 <Nestor Lacy - Last Filed: 05/01/23 12:03> - Medical Decision Making Patient pending psychiatric transfer. Clinical certificate completed by myself and placed on the chart. Patient is pending placement. (Hermann Ko) Patient still pending psychiatric transfer. Patient reevaluated by myself. Positive clinical certificate completed again. (Nestor Lacy) - Lab Data Lab Results 04/26/23 04/26/23 04/26/23 Range/Units 20:57 22:54 22:54 WBC (3.8-10.6) k/uL RBC (3.80-5.40) m/uL Hgb (11.4-16.0) gm/dL Hct (34.0-46.0) % MCV (80.0-100.0) fL MCH (25.0-35.0) pg MCHC (31.0-37.0) g/dL RDW (11.5-15.5) % Plt Count (150-450) k/uL MPV Neutrophils % % Lymphocytes % % Monocytes % % Eosinophils % % Basophils % % Neutrophils # (1.3-7.7) k/uL Lymphocytes # (1.0-4.8) k/uL Monocytes # (0-1.0) k/uL Eosinophils # (0-0.7) k/uL Basophils # (0-0.2) k/uL Sodium (137-145) mmol/L Potassium (3.5-5.1) mmol/L Chloride (98-107) mmol/L Carbon Dioxide (22-30) mmol/L Anion Gap mmol/L BUN (7-17) mg/dL Creatinine (0.52-1.04) mg/dL Est GFR (CKD-EPI)AfAm (>60 ml/min/1.73 sqM) Est GFR (CKD-EPI)NonAf (>60 ml/min/1.73 sqM) Glucose (74-99) mg/dL Calcium (8.4-10.2) mg/dL Total Bilirubin (0.2-1.3) mg/dL AST (14-36) U/L ALT (4-34) U/L Alkaline Phosphatase (38-126) U/L Total Protein (6.3-8.2) g/dL Albumin (3.5-5.0) g/dL Urine Color Colorless Urine Appearance Clear (Clear) Urine pH 6.5 (5.0-8.0) Ur Specific [place] 1.013 (1.001-1.035) Urine Protein Trace H (Negative) Urine Glucose (UA) Negative (Negative) Urine Ketones Negative (Negative) Urine Blood Negative (Negative) Urine Nitrite Negative (Negative) Urine Bilirubin Negative (Negative) Urine Urobilinogen <2.0 (<2.0) mg/dL Ur Leukocyte Esterase Trace H (Negative) Urine RBC 1 (0-5) /hpf Urine WBC 3 (0-5) /hpf Ur Squamous Epith Cells 1 (0-4) /hpf Hyaline Casts 14 H (0-2) /lpf Urine Mucus Occasional H (None) /hpf Urine HCG, Qual Not Detected (Not Detectd) Urine Opiates Screen Not Detected (NotDetected) Ur Oxycodone Screen Not Detected (NotDetected) Urine Methadone Screen Not Detected (NotDetected) Ur Barbiturates Screen Not Detected (NotDetected) U Tricyclic Antidepress Not Detected (NotDetected) Ur Phencyclidine Scrn Not Detected (NotDetected) Ur Amphetamines Screen Not Detected (NotDetected) U Methamphetamines Scrn Not Detected (NotDetected) U Benzodiazepines Scrn Detected H (NotDetected) Urine Cocaine Screen Not Detected (NotDetected) U Marijuana (THC) Screen Not Detected (NotDetected) Influenza Type A (PCR) (Not Detectd) Influenza Type B (PCR) (Not Detectd) RSV (PCR) (Not Detectd) SARS-CoV-2 (PCR) (Not Detectd) 04/27/23 04/27/23 04/27/23 Range/Units 01:49 01:49 01:49 WBC 11.3 H (3.8-10.6) k/uL RBC 4.13 (3.80-5.40) m/uL Hgb 12.5 (11.4-16.0) gm/dL Hct 37.5 (34.0-46.0) % MCV 90.8 (80.0-100.0) fL MCH 30.4 (25.0-35.0) pg MCHC 33.5 (31.0-37.0) g/dL RDW 12.8 (11.5-15.5) % Plt Count 345 (150-450) k/uL MPV 7.2 Neutrophils % 66 % Lymphocytes % 21 % Monocytes % 8 % Eosinophils % 4 % Basophils % 0 % Neutrophils # 7.4 (1.3-7.7) k/uL Lymphocytes # 2.3 (1.0-4.8) k/uL Monocytes # 0.8 (0-1.0) k/uL Eosinophils # 0.4 (0-0.7) k/uL Basophils # 0.1 (0-0.2) k/uL Sodium 140 (137-145) mmol/L Potassium 4.1 (3.5-5.1) mmol/L Chloride 108 H (98-107) mmol/L Carbon Dioxide 23 (22-30) mmol/L Anion Gap 9 mmol/L BUN 10 (7-17) mg/dL Creatinine 0.65 (0.52-1.04) mg/dL Est GFR (CKD-EPI)AfAm >90 (>60 ml/min/1.73 sqM) Est GFR (CKD-EPI)NonAf >90 (>60 ml/min/1.73 sqM) Glucose 94 (74-99) mg/dL Calcium 9.0 (8.4-10.2) mg/dL Total Bilirubin 0.3 (0.2-1.3) mg/dL AST 19 (14-36) U/L ALT 15 (4-34) U/L Alkaline Phosphatase 73 (38-126) U/L Total Protein 6.1 L (6.3-8.2) g/dL Albumin 3.4 L (3.5-5.0) g/dL Urine Color Urine Appearance (Clear) Urine pH (5.0-8.0) Ur Specific [place] (1.001-1.035) Urine Protein (Negative) Urine Glucose (UA) (Negative) Urine Ketones (Negative) Urine Blood (Negative) Urine Nitrite (Negative) Urine Bilirubin (Negative) Urine Urobilinogen (<2.0) mg/dL Ur Leukocyte Esterase (Negative) Urine RBC (0-5) /hpf Urine WBC (0-5) /hpf Ur Squamous Epith Cells (0-4) /hpf Hyaline Casts (0-2) /lpf Urine Mucus (None) /hpf Urine HCG, Qual (Not Detectd) Urine Opiates Screen (NotDetected) Ur Oxycodone Screen (NotDetected) Urine Methadone Screen (NotDetected) Ur Barbiturates Screen (NotDetected) U Tricyclic Antidepress (NotDetected) Ur Phencyclidine Scrn (NotDetected) Ur Amphetamines Screen (NotDetected) U Methamphetamines Scrn (NotDetected) U Benzodiazepines Scrn (NotDetected) Urine Cocaine Screen (NotDetected) U Marijuana (THC) Screen (NotDetected) Influenza Type A (PCR) Not Detected (Not Detectd) Influenza Type B (PCR) Not Detected (Not Detectd) RSV (PCR) Not Detected (Not Detectd) SARS-CoV-2 (PCR) Not Detected (Not Detectd) Disposition <Hermann Ko - Last Filed: 04/28/23 22:09> Time of Disposition: 12:03 <Nestor Lacy - Last Filed: 05/01/23 12:03> Clinical Impression: Cognitive developmental delay, Agitation Disposition: TRANSFER TO PSYCH HOSP/UNIT Condition: Fair Referrals: Rashard Cobb DO [Primary Care Provider] - 1-2 days
[2023-04-29] MEDS: DIVALPROEX SPRINKLE 125 MG CAP.SPRINK PO SCH ×2 (08:39→20:05)
[2023-04-29] MEDS: DIVALPROEX 500 MG TABLET.DR PO SCH ×2 (08:39→20:05)
[2023-04-29] MEDS: CALCIUM CARB-VIT D 500 MG-5 MCG TAB PO SCH (08:39)
[2023-04-29] MEDS: polyethylene glycoL 3350 17 GM POWD.PACK PO SCH (08:39)
[2023-04-29] MEDS: DAYSEE PO SCH ×2 (14:42→15:34)
[2023-04-29] MEDS: LORazepam 2 MG/ML INJ IM PRN (19:26)
[2023-04-29] MEDS: OLANZapine 5 MG TAB PO SCH (20:05)
[2023-04-29] MEDS: traZODone HCL 100 MG TAB PO SCH (20:05)
[2023-04-29] MEDS: LITHIUM CARBONATE 300 MG CAP PO SCH (20:22)
[2023-04-30] MEDS: DIVALPROEX 500 MG TABLET.DR PO SCH ×2 (09:26→20:14)
[2023-04-30] MEDS: DAYSEE PO SCH (09:26)
[2023-04-30] MEDS: DIVALPROEX SPRINKLE 125 MG CAP.SPRINK PO SCH ×2 (09:27→20:14)
[2023-04-30] MEDS: CALCIUM CARB-VIT D 500 MG-5 MCG TAB PO SCH (09:27)
[2023-04-30] MEDS: polyethylene glycoL 3350 17 GM POWD.PACK PO SCH (09:30)
[2023-04-30] MEDS: IBUPROFEN 600 MG TAB PO PRN (12:00)
[2023-04-30] MEDS: traZODone HCL 100 MG TAB PO SCH (20:14)
[2023-04-30] MEDS: OLANZapine 5 MG TAB PO SCH (20:14)
[2023-04-30] MEDS: LITHIUM CARBONATE 300 MG CAP PO SCH (22:07)
[2023-04-30] MEDS ORDERED: LORazepam 1 MG TAB PO STA (23:01)
[2023-05-01] MEDS: DAYSEE PO SCH (08:07)
[2023-05-01] MEDS: CALCIUM CARB-VIT D 500 MG-5 MCG TAB PO SCH (09:15)
[2023-05-01] MEDS: DIVALPROEX SPRINKLE 125 MG CAP.SPRINK PO SCH ×2 (09:15→21:09)
[2023-05-01] MEDS: DIVALPROEX 500 MG TABLET.DR PO SCH ×2 (09:15→21:09)
[2023-05-01] MEDS: polyethylene glycoL 3350 17 GM POWD.PACK PO SCH (09:16)
[2023-05-01] MEDS: traZODone HCL 100 MG TAB PO SCH (21:13)
[2023-05-01] MEDS: OLANZapine 5 MG TAB PO SCH (21:13)
[2023-05-01] MEDS: LITHIUM CARBONATE 300 MG CAP PO SCH (21:14)
[2023-05-02] MEDS: DIVALPROEX SPRINKLE 125 MG CAP.SPRINK PO SCH ×2 (09:48→21:16)
[2023-05-02] MEDS: CALCIUM CARB-VIT D 500 MG-5 MCG TAB PO SCH (09:48)
[2023-05-02] MEDS: DIVALPROEX 500 MG TABLET.DR PO SCH ×2 (09:48→20:51)
[2023-05-02] MEDS: polyethylene glycoL 3350 17 GM POWD.PACK PO SCH (09:48)
[2023-05-02] MEDS: DAYSEE PO SCH (09:49)
[2023-05-02] MEDS: OLANZapine 5 MG TAB PO SCH (20:50)
[2023-05-02] MEDS: LITHIUM CARBONATE 300 MG CAP PO SCH (20:50)
[2023-05-02] MEDS: traZODone HCL 100 MG TAB PO SCH (21:16)
[2023-05-02] MEDS: LORazepam 2 MG/ML INJ IM PRN (22:15)
[2023-05-03] MEDS: CALCIUM CARB-VIT D 500 MG-5 MCG TAB PO SCH (09:45)
[2023-05-03] MEDS: DIVALPROEX SPRINKLE 125 MG CAP.SPRINK PO SCH ×2 (09:45→20:48)
[2023-05-03] MEDS: DAYSEE PO SCH (09:45)
[2023-05-03] MEDS: polyethylene glycoL 3350 17 GM POWD.PACK PO SCH (09:46)
[2023-05-03] MEDS: IBUPROFEN 600 MG TAB PO PRN (13:46)
[2023-05-03] MEDS: LORazepam 2 MG/ML INJ IM PRN ×2 (16:25→23:35)
[2023-05-03] MEDS: DIVALPROEX 500 MG TABLET.DR PO SCH (20:49)
[2023-05-03] MEDS: OLANZapine 5 MG TAB PO SCH (20:49)
[2023-05-03] MEDS: traZODone HCL 100 MG TAB PO SCH (20:49)
[2023-05-03] MEDS: LITHIUM CARBONATE 300 MG CAP PO SCH (20:49)
[2023-05-04] MEDS: DAYSEE PO SCH (09:50)
[2023-05-04] MEDS: CALCIUM CARB-VIT D 500 MG-5 MCG TAB PO SCH (10:01)
[2023-05-04] MEDS: DIVALPROEX SPRINKLE 125 MG CAP.SPRINK PO SCH ×2 (10:01→20:34)
[2023-05-04] MEDS: polyethylene glycoL 3350 17 GM POWD.PACK PO SCH (10:01)
[2023-05-04] MEDS: DIVALPROEX 500 MG TABLET.DR PO SCH ×2 (10:01→20:34)
[2023-05-04] MEDS: LORazepam 2 MG/ML INJ IM PRN ×3 (11:33→21:19)
[2023-05-04] MEDS: LITHIUM CARBONATE 300 MG CAP PO SCH (20:34)
[2023-05-04] MEDS: traZODone HCL 100 MG TAB PO SCH (20:35)
[2023-05-04] MEDS: OLANZapine 5 MG TAB PO SCH (20:35)
[2023-05-05] MEDS: CALCIUM CARB-VIT D 500 MG-5 MCG TAB PO SCH (09:13)
[2023-05-05] MEDS: DIVALPROEX 500 MG TABLET.DR PO SCH ×2 (09:13→20:57)
[2023-05-05] MEDS: DIVALPROEX SPRINKLE 125 MG CAP.SPRINK PO SCH ×2 (09:13→20:56)
[2023-05-05] MEDS: DAYSEE PO SCH (09:14)
[2023-05-05] MEDS: polyethylene glycoL 3350 17 GM POWD.PACK PO SCH (09:14)
[2023-05-05] MEDS: LORazepam 2 MG/ML INJ IM PRN ×2 (10:44→20:10)
[2023-05-05] MEDS ORDERED: ZIPRASIDONE 20 MG VIAL IM STA ×2 (10:54→20:23)
--- NOTE | 2023-05-05 10:55 | ED ---
Medical Decision Making - Lab Data Result diagrams: 04/27/23 01:49 04/27/23 01:49 <Hermann Ko - Last Filed: 05/05/23 10:54> - Lab Data Result diagrams: 04/27/23 01:49 04/27/23 01:49 <Nestor Lacy - Last Filed: 05/06/23 17:26> - Medical Decision Making Case was discussed many times with mental health worker and plan of patient. Patient was reevaluated several times. Patient was tested positive for COVID-19 and will need medical admission. Case was discussed with practitioner Elizabeth Dowd, who will admit covered Dr. Cobb. Diagnosis: COVID-19, acute Psychosis, acute on chronic Plan for medical admission. Medical admission orders written. Psychiatry will be consult still. (Nestor Lacy) - Lab Data Lab Results 04/26/23 04/26/23 04/26/23 Range/Units 20:57 22:54 22:54 WBC (3.8-10.6) k/uL RBC (3.80-5.40) m/uL Hgb (11.4-16.0) gm/dL Hct (34.0-46.0) % MCV (80.0-100.0) fL MCH (25.0-35.0) pg MCHC (31.0-37.0) g/dL RDW (11.5-15.5) % Plt Count (150-450) k/uL MPV Neutrophils % % Lymphocytes % % Monocytes % % Eosinophils % % Basophils % % Neutrophils # (1.3-7.7) k/uL Lymphocytes # (1.0-4.8) k/uL Monocytes # (0-1.0) k/uL Eosinophils # (0-0.7) k/uL Basophils # (0-0.2) k/uL Sodium (137-145) mmol/L Potassium (3.5-5.1) mmol/L Chloride (98-107) mmol/L Carbon Dioxide (22-30) mmol/L Anion Gap mmol/L BUN (7-17) mg/dL Creatinine (0.52-1.04) mg/dL Est GFR (CKD-EPI)AfAm (>60 ml/min/1.73 sqM) Est GFR (CKD-EPI)NonAf (>60 ml/min/1.73 sqM) Glucose (74-99) mg/dL Calcium (8.4-10.2) mg/dL Total Bilirubin (0.2-1.3) mg/dL AST (14-36) U/L ALT (4-34) U/L Alkaline Phosphatase (38-126) U/L Total Protein (6.3-8.2) g/dL Albumin (3.5-5.0) g/dL Urine Color Colorless Urine Appearance Clear (Clear) Urine pH 6.5 (5.0-8.0) Ur Specific [place] 1.013 (1.001-1.035) Urine Protein Trace H (Negative) Urine Glucose (UA) Negative (Negative) Urine Ketones Negative (Negative) Urine Blood Negative (Negative) Urine Nitrite Negative (Negative) Urine Bilirubin Negative (Negative) Urine Urobilinogen <2.0 (<2.0) mg/dL Ur Leukocyte Esterase Trace H (Negative) Urine RBC 1 (0-5) /hpf Urine WBC 3 (0-5) /hpf Ur Squamous Epith Cells 1 (0-4) /hpf Hyaline Casts 14 H (0-2) /lpf Urine Mucus Occasional H (None) /hpf Urine HCG, Qual Not Detected (Not Detectd) Urine Opiates Screen Not Detected (NotDetected) Ur Oxycodone Screen Not Detected (NotDetected) Urine Methadone Screen Not Detected (NotDetected) Ur Barbiturates Screen Not Detected (NotDetected) U Tricyclic Antidepress Not Detected (NotDetected) Ur Phencyclidine Scrn Not Detected (NotDetected) Ur Amphetamines Screen Not Detected (NotDetected) U Methamphetamines Scrn Not Detected (NotDetected) U Benzodiazepines Scrn Detected H (NotDetected) Urine Cocaine Screen Not Detected (NotDetected) U Marijuana (THC) Screen Not Detected (NotDetected) Influenza Type A (PCR) (Not Detectd) Influenza Type B (PCR) (Not Detectd) RSV (PCR) (Not Detectd) SARS-CoV-2 (PCR) (Not Detectd) 04/27/23 04/27/23 04/27/23 Range/Units 01:49 01:49 01:49 WBC 11.3 H (3.8-10.6) k/uL RBC 4.13 (3.80-5.40) m/uL Hgb 12.5 (11.4-16.0) gm/dL Hct 37.5 (34.0-46.0) % MCV 90.8 (80.0-100.0) fL MCH 30.4 (25.0-35.0) pg MCHC 33.5 (31.0-37.0) g/dL RDW 12.8 (11.5-15.5) % Plt Count 345 (150-450) k/uL MPV 7.2 Neutrophils % 66 % Lymphocytes % 21 % Monocytes % 8 % Eosinophils % 4 % Basophils % 0 % Neutrophils # 7.4 (1.3-7.7) k/uL Lymphocytes # 2.3 (1.0-4.8) k/uL Monocytes # 0.8 (0-1.0) k/uL Eosinophils # 0.4 (0-0.7) k/uL Basophils # 0.1 (0-0.2) k/uL Sodium 140 (137-145) mmol/L Potassium 4.1 (3.5-5.1) mmol/L Chloride 108 H (98-107) mmol/L Carbon Dioxide 23 (22-30) mmol/L Anion Gap 9 mmol/L BUN 10 (7-17) mg/dL Creatinine 0.65 (0.52-1.04) mg/dL Est GFR (CKD-EPI)AfAm >90 (>60 ml/min/1.73 sqM) Est GFR (CKD-EPI)NonAf >90 (>60 ml/min/1.73 sqM) Glucose 94 (74-99) mg/dL Calcium 9.0 (8.4-10.2) mg/dL Total Bilirubin 0.3 (0.2-1.3) mg/dL AST 19 (14-36) U/L ALT 15 (4-34) U/L Alkaline Phosphatase 73 (38-126) U/L Total Protein 6.1 L (6.3-8.2) g/dL Albumin 3.4 L (3.5-5.0) g/dL Urine Color Urine Appearance (Clear) Urine pH (5.0-8.0) Ur Specific [place] (1.001-1.035) Urine Protein (Negative) Urine Glucose (UA) (Negative) Urine Ketones (Negative) Urine Blood (Negative) Urine Nitrite (Negative) Urine Bilirubin (Negative) Urine Urobilinogen (<2.0) mg/dL Ur Leukocyte Esterase (Negative) Urine RBC (0-5) /hpf Urine WBC (0-5) /hpf Ur Squamous Epith Cells (0-4) /hpf Hyaline Casts (0-2) /lpf Urine Mucus (None) /hpf Urine HCG, Qual (Not Detectd) Urine Opiates Screen (NotDetected) Ur Oxycodone Screen (NotDetected) Urine Methadone Screen (NotDetected) Ur Barbiturates Screen (NotDetected) U Tricyclic Antidepress (NotDetected) Ur Phencyclidine Scrn (NotDetected) Ur Amphetamines Screen (NotDetected) U Methamphetamines Scrn (NotDetected) U Benzodiazepines Scrn (NotDetected) Urine Cocaine Screen (NotDetected) U Marijuana (THC) Screen (NotDetected) Influenza Type A (PCR) Not Detected (Not Detectd) Influenza Type B (PCR) Not Detected (Not Detectd) RSV (PCR) Not Detected (Not Detectd) SARS-CoV-2 (PCR) Not Detected (Not Detectd) 05/06/23 Range/Units 14:29 WBC (3.8-10.6) k/uL RBC (3.80-5.40) m/uL Hgb (11.4-16.0) gm/dL Hct (34.0-46.0) % MCV (80.0-100.0) fL MCH (25.0-35.0) pg MCHC (31.0-37.0) g/dL RDW (11.5-15.5) % Plt Count (150-450) k/uL MPV Neutrophils % % Lymphocytes % % Monocytes % % Eosinophils % % Basophils % % Neutrophils # (1.3-7.7) k/uL Lymphocytes # (1.0-4.8) k/uL Monocytes # (0-1.0) k/uL Eosinophils # (0-0.7) k/uL Basophils # (0-0.2) k/uL Sodium (137-145) mmol/L Potassium (3.5-5.1) mmol/L Chloride (98-107) mmol/L Carbon Dioxide (22-30) mmol/L Anion Gap mmol/L BUN (7-17) mg/dL Creatinine (0.52-1.04) mg/dL Est GFR (CKD-EPI)AfAm (>60 ml/min/1.73 sqM) Est GFR (CKD-EPI)NonAf (>60 ml/min/1.73 sqM) Glucose (74-99) mg/dL Calcium (8.4-10.2) mg/dL Total Bilirubin (0.2-1.3) mg/dL AST (14-36) U/L ALT (4-34) U/L Alkaline Phosphatase (38-126) U/L Total Protein (6.3-8.2) g/dL Albumin (3.5-5.0) g/dL Urine Color Urine Appearance (Clear) Urine pH (5.0-8.0) Ur Specific [place] (1.001-1.035) Urine Protein (Negative) Urine Glucose (UA) (Negative) Urine Ketones (Negative) Urine Blood (Negative) Urine Nitrite (Negative) Urine Bilirubin (Negative) Urine Urobilinogen (<2.0) mg/dL Ur Leukocyte Esterase (Negative) Urine RBC (0-5) /hpf Urine WBC (0-5) /hpf Ur Squamous Epith Cells (0-4) /hpf Hyaline Casts (0-2) /lpf Urine Mucus (None) /hpf Urine HCG, Qual (Not Detectd) Urine Opiates Screen (NotDetected) Ur Oxycodone Screen (NotDetected) Urine Methadone Screen (NotDetected) Ur Barbiturates Screen (NotDetected) U Tricyclic Antidepress (NotDetected) Ur Phencyclidine Scrn (NotDetected) Ur Amphetamines Screen (NotDetected) U Methamphetamines Scrn (NotDetected) U Benzodiazepines Scrn (NotDetected) Urine Cocaine Screen (NotDetected) U Marijuana (THC) Screen (NotDetected) Influenza Type A (PCR) Not Detected (Not Detectd) Influenza Type B (PCR) Not Detected (Not Detectd) RSV (PCR) Not Detected (Not Detectd) SARS-CoV-2 (PCR) Detected A (Not Detectd) Disposition <Hermann Ko - Last Filed: 05/05/23 10:54> Is patient prescribed a controlled substance at d/c from ED?: No Time of Disposition: 17:26 <Nestor Lacy - Last Filed: 05/06/23 17:26> Clinical Impression: Cognitive developmental delay, Agitation, COVID-19, Psychosis Disposition: ADMITTED IP TO THIS [facility] Condition: Fair Referrals: Rashard Cobb DO [Primary Care Provider] - 1-2 days Procedures - Restraint - Face to Face Restraint Occurrence 1 Patient's Immediate Situation: Endangers self safety, Endangers others' safety, Endangers staff safety, Violent behavior Patient's Reaction to the Intervention: Uncooperative, Angry, Aggressive Patient's Medical & Behavioral Condition: Awake, Alert Face to Face Eval of Restraint Date: 05/05/23 Face to Face Eval of Restraint Time: 10:53 <Hermann Ko - Last Filed: 05/05/23 10:54> - Restraint - Face to Face Restraint Occurrence 2 Patient's Immediate Situation: Endangers self safety, Endangers others' safety, Endangers staff safety, Violent behavior Patient's Reaction to the Intervention: Uncooperative, Angry Patient's Medical & Behavioral Condition: Awake, Alert Need to Continue or Terminate Restraint or Seclusion: Continue Face to Face Eval of Restraint Date: 05/05/23 Face to Face Eval of Restraint Time: 20:10 <Nestor Lacy - Last Filed: 05/06/23 17:26>
[2023-05-05] MEDS: traZODone HCL 100 MG TAB PO SCH (20:56)
[2023-05-05] MEDS: OLANZapine 5 MG TAB PO SCH (20:58)
[2023-05-05] MEDS: LITHIUM CARBONATE 300 MG CAP PO SCH (20:59)
[2023-05-05] MEDS ORDERED: LORazepam 2 MG/ML INJ IV STA (21:25)
[2023-05-06] MEDS: DIVALPROEX 500 MG TABLET.DR PO SCH ×2 (09:21→20:56)
[2023-05-06] MEDS: DIVALPROEX SPRINKLE 125 MG CAP.SPRINK PO SCH ×2 (09:21→20:56)
[2023-05-06] MEDS: polyethylene glycoL 3350 17 GM POWD.PACK PO SCH (09:21)
[2023-05-06] MEDS: traZODone HCL 100 MG TAB PO SCH ×2 (09:21→20:56)
[2023-05-06] MEDS: CALCIUM CARB-VIT D 500 MG-5 MCG TAB PO SCH (09:21)
[2023-05-06] MEDS: DAYSEE PO SCH ×2 (09:23→20:55)
[2023-05-06] MEDS ORDERED: ZIPRASIDONE 20 MG VIAL IM STA (15:04)
[2023-05-06] MEDS ORDERED: ACETAMINOPHEN TAB 325 MG TAB PO PRN (17:26)
[2023-05-06] MEDS ORDERED: NALOXONE 0.4 MG/ML 1 ML VIAL IV PRN (17:26)
[2023-05-06] MEDS: LITHIUM CARBONATE 300 MG CAP PO SCH (20:55)
[2023-05-06] MEDS: OLANZapine 5 MG TAB PO SCH (20:56)
[2023-05-07] MEDS: DIVALPROEX SPRINKLE 125 MG CAP.SPRINK PO SCH ×2 (09:01→20:03)
[2023-05-07] MEDS: DIVALPROEX 500 MG TABLET.DR PO SCH ×2 (09:01→20:03)
[2023-05-07] MEDS: CALCIUM CARB-VIT D 500 MG-5 MCG TAB PO SCH (09:01)
[2023-05-07] MEDS: polyethylene glycoL 3350 17 GM POWD.PACK PO SCH (09:01)
[2023-05-07] MEDS: DAYSEE PO SCH (09:01)
[2023-05-07] MEDS ORDERED: ONDANSETRON 4 MG TAB PO PRN (13:18)
[2023-05-07] MEDS: ZINC SULFATE 220 MG CAP PO SCH (13:26)
[2023-05-07] MEDS: ASCORBIC ACID 500 MG TAB PO SCH (13:26)
[2023-05-07] MEDS: CHOLECALCIFEROL 125 MCG (5000 IU) TABLET PO SCH (13:26)
[2023-05-07] MEDS: OLANZapine 5 MG TAB PO SCH ×2 (15:26→20:03)
--- NOTE | 2023-05-07 18:00 | P.CN ---
Psychiatric Consult - . Consult date: 05/07/23 Consult:: 05/07/23 13:25 IDENTIFYING DATA: This patient is a 22-year-old female, history of developmental delay, currently in a correction, has a public guardian. REASON FOR REFERRAL: Psychiatry was consulted for psychiatric evaluation and adjustment of medications HISTORY OF PRESENT ILLNESS: The patient presented to the hospital seevra days ago from her correction due to violent outbursts and was brought in by police to the ER. Patient has had several ER viits in the past for similar issues. Patients UDS was positive for BZD, after several days in the ER patient contracted COVID and was admitted medically. pt has had several prns and also restraints since being in the hospital due to agittion and aggression. PAtients nurse claims that patient has been doing fairly today, no sig issues and has been sleeping well. Patient was seen up near her entrance to her room and agrrebl to speak to lead technical writer. she was fairly concrete, childish and constricted in her affect. she states that came to the hospital because she is "sick" and claims that he has a runny nose. knows shes in the hospital and knows her name only, deneis any anxiety or depression. denies any S/e from the medications. At this time patient denies any suicidal or homical ideations, intent or plan. Patient denies any auditory, visual hallucinations and denies any paranoia or delusions. Patients denies using any recreational drugs. Due to patients limited cognition/capacity she was not able to give much furhter history or social/psych hx. PAST PSYCHIATRIC HISTORY: Patient has a a history of Developmental delay. she is currently on depakote and sprinkles, zyprexa, trazodone and lithium. apparently follows up at [facility]. Past Medical History: No Reported History Additional Past Medical History / Comment(s): TRIO neuro development delay History of Any Multi-Drug Resistant Organisms: None Reported Past Surgical History: Hernia Repair Past Psychological History: Anxiety, Depression, Panic Disorder Smoking Status: Never smoker Past Alcohol Use History: None Reported Past Drug Use History: None Reported ALLERGIES: as per EMR. CHEMICAL DEPENDENCY HISTORY: unable to gather FAMILY PSYCHIATRIC/SUBSTANCE USE HISTORY: unable to gather SOCIAL HISTORY:unable to gather. patient currently lives in a correction MENTAL STATUS EXAM: General Appearance: Patient appears to be thin, stated age is alert, childlike. Patient appears to have [fair] hygiene and grooming wearing hospital gown with [fair] eye contact. Behavior: [Patient is calmly lying in bed without any agitated behavior.] childlike and fairly delayed Speech: Patient's speech is fluent and nonpressured. concrete. Mood/Affect: Patient reports their mood is "[ok]", affect is congruent. concrete. Suicidality/Homicidality: Patient denies having any suicidal or homicidal ideation intent or plan. Perceptions: Patient denies any visual hallucinations [and denies any auditory hallucinations] Though content/process: There is no evidence of any delusional thought content. poor historian, concrete. Memory and concentration: AOX2, does not know todays date Cannot spell "WORLD" backwards Judgment and insight: [poor]/chronically limited. IMPRESSIONS: Mood disorder unspecified Intellectual disability PLAN: -At this time patient DOES NOT meet criteria for inpatient psychiatric admission however psych will continue to follow to optimize/adjust medications as needed [-Patient DOES NOT have decision making capacity at this time and is unable to reason through and communicate/appreciate the risks, benefits and alternatives to treatment.] -Would recommend the following medication changes/additions: increase zyprexa to 5 mg bid for mood stabilization/aggression. can continue previous meds as perscribed. will check lithium level tomorrow. [-freezer worker to provide patient with outpatient mental health/psychiatry resources for appropriate follow up upon discharge] -SW to look into if patient is able to return back to her previous correction or if other group homes would be willing to accept her. -Communicated plan to patient's nurse -Psychiatry will sign off at this time, however will follow along if needed until patient is discharged. -Please contact with any questions.
[2023-05-07] MEDS: traZODone HCL 100 MG TAB PO SCH (20:03)
[2023-05-07] MEDS: LITHIUM CARBONATE 300 MG CAP PO SCH (20:03)
--- NOTE | 2023-05-07 21:07 | XR ---
EXAMINATION TYPE: XR chest 1V portable DATE OF EXAM: 05/07/2023 8:14 PM CLINICAL INDICATION:Female, 22 years old with history of covid; COMPARISON: None TECHNIQUE: XR chest 1V portable Frontal view of the chest. FINDINGS: Lungs/Pleura: There is no evidence of pleural effusion, focal consolidation, or pneumothorax. Pulmonary vascularity: Unremarkable. Heart/mediastinum: Cardiomediastinal silhouette is unremarkable. Musculoskeletal: No acute osseous pathology. IMPRESSION: No acute cardiopulmonary disease/process.
--- NOTE | 2023-05-07 22:44 | P.CONS ---
History of Present Illness - Reason for Consult Consult date: 05/07/23 - History of Present Illness Patient is a 22-year-old female with a past medical history significant for anxiety depression panic disorder history of developmental delay and [facility] resident patient has been brought into the hospital from the [facility] due to violent outburst and the patient was brought in by the police to the ER, patient on presentation to the hospital today was awake, than the previous with no worsening outburst patient was breathing comfortably on room air satting 99% no fever was documented to hypoxemia or hypotension patient did have white count of 11.3 on 431 patient tested negative for COVID-19 on 04/27/2023 however she tested positive for COVID-19 on 05/06/2023 that has prompte d this infectious disease consultation patient overall not a very good historian however when asked specifically denies any chest pain shortness of breath or cough no vomiting diarrhea or any other changes reported by the nursing staff Past Medical History Past Medical History: No Reported History Additional Past Medical History / Comment(s): TRIO neuro development delay History of Any Multi-Drug Resistant Organisms: None Reported Past Surgical History: Hernia Repair Past Psychological History: Anxiety, Depression, Panic Disorder Smoking Status: Never smoker Past Alcohol Use History: None Reported Past Drug Use History: None Reported Medications and Allergies Home Medications Medication Instructions Recorded Confirmed Type traZODone HCL [Desyrel] 100 mg PO HS 12/13/22 04/26/23 History Calcium Carb/Vitamin D3/Vit K1 1 tab PO DAILY@0800 03/09/23 04/26/23 History [Viactiv 650 mg-12.5 Mcg Chew] [place] Carbonate 1,200 mg PO HS 03/09/23 04/26/23 History polyethylene glycoL 3350 [Miralax] 17 gm PO DAILY 03/09/23 04/26/23 History Daysee 1 tab PO DAILY 04/26/23 04/26/23 History Divalproex Sodium [Depakote] 125 mg PO BID 04/26/23 04/26/23 History Divalproex [Depakote] 500 mg PO BID 04/26/23 04/26/23 History Ibuprofen [Motrin] 600 mg PO Q6HR PRN 04/26/23 04/26/23 History Linaclotide [Linzess] 290 mcg PO HS PRN 04/26/23 04/26/23 History OLANZapine [ZyPREXA] 5 mg PO HS 04/26/23 04/26/23 History Allergies Allergy/AdvReac Type Severity Reaction Status Date / Time amoxicillin AdvReac Rash/Hives Verified 04/26/23 21:03 codeine AdvReac Unknown Verified 04/26/23 21:03 Childhood Physical Exam Vitals: Vital Signs Temp Pulse Resp BP Pulse Ox 05/07/23 00:00 98.8 F 80 18 118/68 97 Results CBC & Chem 7: 04/27/23 01:49 04/27/23 01:49 Assessment and Plan Plan: 1patient tested positive for COVID-19 seem to be new diagnosis and she tested negative on 04/27/2023 patient is currently afebrile patient is nonhypoxic lungs are clear to auscultation more likely mild COVID-19 illness antigen will be mostly supportive 2-no need for remdesivir or steroids 3-5-day isolation should be enough for this mild COVID illness We will follow on clinical condition and cultures to further adjust medication if needed Thank you for this consultation we will follow the patient along with you Dictation was produced using i[employer] dictation software. please excuse any grammatical, word or spelling errors. Time with Patient: Greater than 30
[2023-05-07] MEDS: PATIENTS OWN MED PO PRN (22:54)
--- NOTE | 2023-05-07 23:21 | HP ---
HISTORY AND PHYSICAL CHIEF COMPLAINT: Cough, upper respiratory symptoms, and as well as COVID. HISTORY OF PRESENT ILLNESS: This is a 22-year-old woman with a past medical history of neurodevelopmental delay, anxiety, depression, panic disorder, originally came to the ER on 04/26/2023. Subsequently, the patient had a COVID test on 04/27/2023, which was negative, but on 05/06/2023, the COVID test was positive and the patient is being admitted to medical service for further evaluation and treatment. The patient is in the ER apparently for 256 hours. There is no history of any fever, rigors, or chills at this time. PAST MEDICAL HISTORY: History of anxiety, depression, panic disorder, neurodevelopmental delay. HOME MEDICATIONS: Reviewed include trazodone, dose and rest of medications noted. ALLERGIES: Amoxicillin. FAMILY HISTORY: Could not be taken. SOCIAL HISTORY: Could not be taken. REVIEW OF SYSTEMS: Could not be taken. PHYSICAL EXAMINATION: VITAL SIGNS: Pulse is 80, blood pressure 118/60, respirations 18. CHEST: A few scattered rhonchi and crackles. ABDOMEN: Soft, nontender. LEGS: No edema. NERVOUS SYSTEM: No focal deficits. SKIN: No ulcer, rash, bleeding. JOINTS: No active deforming arthropathy. LABORATORY DATA: Reviewed. ASSESSMENT: 1. Acute COVID-19 infection. 2. Violent outburst in the skilled nursing, possibly psychosis, agitation. 3. Neurodevelopment delay. 4. Anxiety, bipolar depression. 5. Panic disorder. RECOMMENDATIONS AND DISCUSSION: This is a 22-year-old woman, who presented with multiple complex medical issues, we will monitor the patient closely. I would recommend to continue the psych medications. Psychiatric consultation. Infectious Disease evaluation. The patient might be a candidate for remdesivir. Prognosis guarded because of multiple complex medical issues. Further recommendations to follow. See orders for further details. The patient will require more than 2 nights for evaluation and treatment of the above-mentioned multiple complex medical issues. Please note that the patient is already in the ER for a long time. MMODL / IJN: [id number] /
[2023-05-08] MEDS: DAYSEE PO SCH (08:22)
[2023-05-08] MEDS: DIVALPROEX SPRINKLE 125 MG CAP.SPRINK PO SCH ×2 (08:23→20:12)
[2023-05-08] MEDS: CALCIUM CARB-VIT D 500 MG-5 MCG TAB PO SCH (08:23)
[2023-05-08] MEDS: CHOLECALCIFEROL 125 MCG (5000 IU) TABLET PO SCH (08:23)
[2023-05-08] MEDS: polyethylene glycoL 3350 17 GM POWD.PACK PO SCH (08:23)
[2023-05-08] MEDS: ASCORBIC ACID 500 MG TAB PO SCH (08:23)
[2023-05-08] MEDS: DIVALPROEX 500 MG TABLET.DR PO SCH ×2 (08:23→20:12)
[2023-05-08] MEDS: ZINC SULFATE 220 MG CAP PO SCH (08:25)
[2023-05-08 11:04] LABS: Basophils # (A) 0.05 X 10*3/uL (0.00-0.10); Basophils % (A) 0.4 %; Eosinophils # (A) 0.45 X 10*3/uL (0.04-0.35); Eosinophils % (A) 3.8 %; HCT 42.4 % (37.2-46.3); HGB 13.5 g/dL (12.0-15.0); Lymphocytes % (A) 22.8 %; MCH 29.5 pg (27.0-32.0); MCHC 31.8 g/dL (32.0-37.0); MCV 92.8 FL (80.0-97.0); Mean Platelet Volume 9.5 FL (9.5-12.2); Monocytes # (A) 1.22 X 10*3/uL (0.20-1.00); Monocytes % (A) 10.3 %; NRBC Per 100 WBC 0 X 10*3/uL (0.00-0.01); Neutrophils # (A) 7.36 X 10*3/uL (1.80-7.70); Neutrophils % (A) 62.4 %; Platelet Count 341 X 10*3/uL (140-440); RBC 4.57 X 10*6/uL (4.10-5.20); RDW 13.1 % (11.5-14.5); WBC 11.82 X 10*3/uL (4.50-10.00)
[2023-05-08 11:39] LABS: Blood Urea Nitrogen 10.8 mg/dL (9.0-27.0); Calcium 9.4 mg/dL (8.7-10.3); Carbon Dioxide 21.8 mmol/L (21.6-31.8); Chloride 108 mmol/L (96-109); Glucose 73 mg/dL (70-110); Potassium 4.5 mmol/L (3.5-5.5); Sodium 142 mmol/L (135-145)
[2023-05-08] MEDS: OLANZapine 5 MG TAB PO SCH ×2 (12:29→20:12)
--- NOTE | 2023-05-08 15:28 | P.PN ---
Subjective Progress Note Date: 05/08/23 Principal diagnosis: Reason for follow-up is COVID-19 Patient is a 22-year-old female with a past medical history significant for anxiety depression panic disorder history of developmental delay and prison resident patient has been brought into the hospital from the prison due to violent outburst, patient tested positive for COVID-19 however the patient was not hypoxic chest x-ray negative for acute cardiopulmonary disease process. On today's evaluation that is 05/08/2023 patient remains to be afebrile, the patient is breathing comfortably on room air patient does not sit up any distress did have occasional cough but no vomiting or diarrhea has been repo rted. Patient did have white count of 11.82 creatinine 0.8 CRP is 2.1 Objective - Vital Signs Vital signs: Vital Signs Temp 98.5 F 05/08/23 07:45 Pulse 78 05/08/23 07:45 Resp 16 05/08/23 07:45 BP 121/69 05/08/23 07:45 Pulse Ox 100 05/08/23 07:45 FiO2 - Exam Middle-age female lying in bed in no distress - Labs CBC & Chem 7: 05/08/23 07:06 05/08/23 07:06 Labs: Abnormal Lab Results - Last 24 Hours (Table) 05/08/23 05/08/23 05/08/23 Range/Units 07:06 07:06 14:13 WBC 11.82 H (4.50-10.00) X 10*3/uL MCHC 31.8 L (32.0-37.0) g/dL Monocytes # 1.22 H (0.20-1.00) X 10*3/uL Eosinophils # 0.45 H (0.04-0.35) X 10*3/uL D-Dimer 1.13 H (<0.60) mg/L FEU Anion Gap 12.20 H (4.00-12.00) mmol/L C-Reactive Protein (<1.0) mg/dL 05/08/23 Range/Units 14:13 WBC (4.50-10.00) X 10*3/uL MCHC (32.0-37.0) g/dL Monocytes # (0.20-1.00) X 10*3/uL Eosinophils # (0.04-0.35) X 10*3/uL D-Dimer (<0.60) mg/L FEU Anion Gap (4.00-12.00) mmol/L C-Reactive Protein 2.1 H (<1.0) mg/dL Assessment and Plan (1) COVID-19 Current Visit: Yes Status: Acute Code(s): U07.1 - COVID-19 SNOMED Code(s): 239188567 Plan: 1patient tested positive for COVID-19 seem to be new diagnosis and she tested negative on 04/27/2023 patient is currently afebrile patient is nonhypoxic lungs are clear to auscultation, chest x-ray was negative for acute cardiopulmonary disease more likely mild COVID-19 illness antigen will be mostly supportive, patient 2-no need for remdesivir or steroids 3-5-day isolation should be enough for this mild COVID illness Dictation was produced using [employer] dictation software. please excuse any grammatical, word or spelling errors. Time with Patient: Less than 30
[2023-05-08] MEDS: traZODone HCL 100 MG TAB PO SCH (20:12)
[2023-05-08] MEDS: LITHIUM CARBONATE 300 MG CAP PO SCH (20:12)
--- NOTE | 2023-05-08 21:58 | PN ---
PROGRESS NOTE DATE OF SERVICE: 05/08/2023 SUBJECTIVE: This is a 22-year-old woman, who was admitted with psychosis, also had a COVID-19 positive. Infectious Disease recommended at least 5 days isolation. No chest pain. No palpitations. No fever. Psychiatry has evaluated the patient. OBJECTIVE: VITAL SIGNS: Pulse 78, blood pressure 124/76, respirations 16. CHEST: Clear to auscultation. CARDIOVASCULAR: S1, S2. ABDOMEN: Soft. NERVOUS SYSTEM: Nonfocal. LABORATORY DATA: WBC 11.1. ASSESSMENT: 1. Acute COVID-19 infection. 2. Elevated WBC. 3. [facility] in the [facility], possibly psychosis, agitation. 4. Neurodevelopment delay. 5. Anxiety, bipolar depression. 6. Panic disorder. RECOMMENDATIONS AND DISCUSSION: Recommend to continue current management. Continue symptomatic treatment. Continue to follow closely with Infectious Disease. I would recommend order the inflammatory markers for COVID. Otherwise, closely follow with Psych. Further recommendations to follow. MMODL / IJN: [id number] /
[2023-05-09] MEDS: polyethylene glycoL 3350 17 GM POWD.PACK PO SCH (07:42)
[2023-05-09] MEDS: DAYSEE PO SCH (09:33)
[2023-05-09] MEDS: OLANZapine 5 MG TAB PO SCH ×2 (09:37→21:06)
[2023-05-09] MEDS: CHOLECALCIFEROL 125 MCG (5000 IU) TABLET PO SCH (09:37)
[2023-05-09] MEDS: DIVALPROEX 500 MG TABLET.DR PO SCH ×2 (09:37→21:06)
[2023-05-09] MEDS: ZINC SULFATE 220 MG CAP PO SCH (09:37)
[2023-05-09] MEDS: ASCORBIC ACID 500 MG TAB PO SCH (09:37)
[2023-05-09] MEDS: DIVALPROEX SPRINKLE 125 MG CAP.SPRINK PO SCH ×2 (09:37→21:07)
--- NOTE | 2023-05-09 20:45 | P.PN ---
Subjective Progress Note Date: 05/09/23 Principal diagnosis: Reason for follow-up is COVID-19 Patient is a 22-year-old female with a past medical history significant for anxiety depression panic disorder history of developmental delay and jail resident patient has been brought into the hospital from the jail due to violent outburst, patient tested positive for COVID-19 however the patient was not hypoxic chest x-ray negative for acute cardiopulmonary disease process. On today's evaluation that is 05/09/2023, the patient remains to be afebrile the patient is breathing comfortably on room air has been complaining of some pain in the epigastric area but no vomiting no chest pain shortness of breath or cough and no diarrhea. No new labs has been obtained today Objective - Vital Signs Vital signs: Vital Signs Temp 97.9 F 05/09/23 08:00 Pulse 80 05/09/23 08:00 Resp 16 05/08/23 20:00 BP 99/61 05/09/23 08:00 Pulse Ox 100 05/09/23 08:00 FiO2 Intake & Output 05/08/23 05/09/23 05/09/23 18:59 06:59 18:59 Weight 77.111 kg Other: # Voids 3 # Bowel Movements 1 - Exam Middle-age female lying in bed in no distress - Labs CBC & Chem 7: 05/08/23 07:06 05/08/23 07:06 Assessment and Plan (1) COVID-19 Current Visit: Yes Status: Acute Code(s): U07.1 - COVID-19 SNOMED Code(s): 871484912 Plan: 1patient tested positive for COVID-19 seem to be new diagnosis and she tested negative on 04/27/2023 patient is currently afebrile patient is nonhypoxic lungs are clear to auscultation, chest x-ray was negative for acute cardiopulmonary disease more likely mild COVID-19 illness antigen will be mostly supportive, patient to continue with the current supportive treatment no need for antiviral or antibiotics Dictation was produced using [employer] dictation software. please excuse any grammatical, word or spelling errors. Time with Patient: Less than 30
[2023-05-09] MEDS: traZODone HCL 100 MG TAB PO SCH (21:06)
[2023-05-09] MEDS: LITHIUM CARBONATE 300 MG CAP PO SCH (21:06)
--- NOTE | 2023-05-10 01:14 | PN ---
PROGRESS NOTE DATE OF SERVICE: 05/09/2023 SUBJECTIVE: This is a 22-year-old woman who was admitted with acute COVID-19 infection, elevated D- dimer. Recommended CT angio chest. No chest pain, no palpitations, no fever. OBJECTIVE: VITAL SIGNS: Pulse is 79, blood pressure 92/58, respirations 16. CHEST: Clear to auscultation. CARDIOVASCULAR: S1, S2. ABDOMEN: Soft. NERVOUS SYSTEM: Nonfocal. LABORATORY DATA: D-dimer is 1.13, and CRP is 2.1. ASSESSMENT: 1. Acute COVID-19 infection. 2. Elevated D-dimer. 3. Increased WBC. 4. Violent outburst in snf, possibly psychosis, agitation. 5. Neuro developmental delay. 6. Anxiety, bipolar depression. 7. Panic disorder. DISCUSSION AND RECOMMENDATIONS: Recommended to continue current medications, continue symptomatic treatment. I recommended CT angio. Otherwise, await discharge planning. Closely follow with psych and Infectious Disease. Guarded prognosis. Further recommendations to follow. MMODL / IJN: [id number] /
[2023-05-10] MEDS: DIVALPROEX 500 MG TABLET.DR PO SCH ×2 (09:17→20:12)
[2023-05-10] MEDS: DAYSEE PO SCH (09:17)
[2023-05-10] MEDS: CHOLECALCIFEROL 125 MCG (5000 IU) TABLET PO SCH (09:17)
[2023-05-10] MEDS: OLANZapine 5 MG TAB PO SCH ×2 (09:17→20:12)
[2023-05-10] MEDS: ASCORBIC ACID 500 MG TAB PO SCH (09:17)
[2023-05-10] MEDS: DIVALPROEX SPRINKLE 125 MG CAP.SPRINK PO SCH ×2 (09:17→20:12)
[2023-05-10] MEDS: ZINC SULFATE 220 MG CAP PO SCH (09:17)
[2023-05-10] MEDS: CALCIUM CARB-VIT D 500 MG-5 MCG TAB PO SCH (09:17)
[2023-05-10] MEDS: polyethylene glycoL 3350 17 GM POWD.PACK PO SCH (09:19)
--- NOTE | 2023-05-10 12:20 | PN ---
PROGRESS NOTE DATE OF SERVICE: 05/10/2023 SUBJECTIVE: This is a 22-year-old woman with a past medical history of multiple problems and psychiatric issues, admitted with COVID. She is being closely monitored. The patient refused CT angio, but however, clinically stable. The Customer Experience Analyst and Senior Sales Consultant is working towards [facility] home. No chest pain. No palpitation. OBJECTIVE: VITAL SIGNS: Pulse is 68, blood pressure 115/70, respirations 16. CHEST: Clear to auscultation. CARDIOVASCULAR: S1, S2. ABDOMEN: Soft. NERVOUS SYSTEM: Nonfocal. LABORATORY DATA: Reviewed. ASSESSMENT: 1. Acute COVID-19 infection. 2. Elevated D-dimer. The patient refused CT angio. 3. Increased WBC. 4. Violent outburst in long term, possibly psychosis, agitation. 5. Neurodevelopment delay. 6. Anxiety, bipolar depression. 7. Panic disorder. RECOMMENDATIONS AND DISCUSSION: I recommend to continue current management and symptomatic treatment as mentioned earlier. The patient refused testing and Social Work and Case Management to follow with discharge planning and placement. The patient is occasionally agitated. Follow closely with Surgery. Further recommendations to follow. See orders for further details. MMODL / IJN: [id number] /
--- NOTE | 2023-05-10 14:33 | P.PN ---
Subjective Progress Note Date: 05/10/23 Principal diagnosis: Reason for follow-up is COVID-19 Patient is a 22-year-old female with a past medical history significant for anxiety depression panic disorder history of developmental delay and [facility], patient tested positive for COVID-19 however the patient was not hypoxic chest x-ray negative for acute cardiopulmonary disease process. On today's evaluation that is 05/10/2023, the patient continues to be afebrile, the patient is breathing comfortably on room air, the patient denies chest pain shortness of breath or cough, denies any further epigastric pain no nausea no vomiting and no diarrhea has been reported No new labs has been obtained today Objective - Vital Signs Vital signs: Vital Signs Temp 98.6 F 05/10/23 08:12 Pulse 74 05/10/23 08:12 Resp 18 05/10/23 08:12 BP 109/70 05/10/23 08:12 Pulse Ox 96 05/10/23 08:12 FiO2 Intake & Output 05/09/23 05/10/23 05/10/23 18:59 06:59 18:59 Other: # Voids 2 # Bowel Movements 1 - Exam Middle-age female lying in bed in no distress - Labs CBC & Chem 7: 05/08/23 07:06 05/08/23 07:06 Assessment and Plan (1) COVID-19 Current Visit: Yes Status: Acute Code(s): U07.1 - COVID-19 SNOMED Code(s): 087870075 Plan: 1patient tested positive for COVID-19 seem to be new diagnosis and she tested negative on 04/27/2023 patient is currently afebrile patient is nonhypoxic lungs are clear to auscultation, chest x-ray was negative for acute cardiopulmonary disease more likely mild COVID-19 illness antigen will be mostly supportive, patient seem to have shown clinical improvement and will continue with the current supportive treatment no need for antiviral or antibiotics Dictation was produced using [employer] dictation software. please excuse any gramm atical, word or spelling errors. Time with Patient: Less than 30
[2023-05-10] MEDS: traZODone HCL 100 MG TAB PO SCH (20:12)
[2023-05-10] MEDS: LITHIUM CARBONATE 300 MG CAP PO SCH (20:12)
[2023-05-11] MEDS: DAYSEE PO SCH (08:37)
[2023-05-11] MEDS: OLANZapine 5 MG TAB PO SCH ×2 (08:37→20:18)
[2023-05-11] MEDS: DIVALPROEX SPRINKLE 125 MG CAP.SPRINK PO SCH ×2 (08:37→20:18)
[2023-05-11] MEDS: CHOLECALCIFEROL 125 MCG (5000 IU) TABLET PO SCH (08:38)
[2023-05-11] MEDS: ZINC SULFATE 220 MG CAP PO SCH (08:38)
[2023-05-11] MEDS: CALCIUM CARB-VIT D 500 MG-5 MCG TAB PO SCH (08:38)
[2023-05-11] MEDS: ASCORBIC ACID 500 MG TAB PO SCH (08:38)
[2023-05-11] MEDS: DIVALPROEX 500 MG TABLET.DR PO SCH ×2 (08:38→20:18)
[2023-05-11] MEDS: polyethylene glycoL 3350 17 GM POWD.PACK PO SCH (08:39)
[2023-05-11] MEDS: ENOXAPARIN 40 MG/0.4 ML SYRINGE SQ SCH (15:45)
--- NOTE | 2023-05-11 16:51 | P.PN ---
Subjective Progress Note Date: 05/11/23 Principal diagnosis: Reason for follow-up is COVID-19 Patient is a 22-year-old female with a past medical history significant for anxiety depression panic disorder history of developmental delay and shelter resident patient has been brought into the hospital from the shelter due to violent outburst, patient tested positive for COVID-19 however the patient was not hypoxic chest x-ray negative for acute cardiopulmonary disease process. On today's evaluation that is 05/11/2023, the patient remains to be afebrile, the patient is breathing comfortably on room air, the patient currently sleepy and in no distress per the sitter at the bedside no coughing no vomiting or any diarrhea No new labs has been obtained today Objective - Vital Signs Vital signs: Vital Signs Temp 98.6 F 05/11/23 13:06 Pulse 83 05/11/23 13:06 Resp 18 05/11/23 13:06 BP 99/61 05/11/23 13:06 Pulse Ox 97 05/11/23 13:06 FiO2 Intake & Output 05/10/23 05/11/23 05/11/23 18:59 06:59 18:59 Intake Total 1000 Balance 1000 Intake: Oral 1000 Other: # Voids 3 2 - Labs CBC & Chem 7: 05/08/23 07:06 05/08/23 07:06 Assessment and Plan (1) COVID-19 Current Visit: Yes Status: Acute Code(s): U07.1 - COVID-19 SNOMED Code(s): 246354439 Plan: 1patient tested positive for COVID-19 seem to be new diagnosis and she tested negative on 04/27/2023 patient is currently afebrile patient is nonhypoxic lungs are clear to auscultation, chest x-ray was negative for acute cardiopulmonary disease more likely mild COVID-19 illness antigen will be mostly supportive 2- patient has shown clinical improvement and will continue with the current supportive treatment no need for antiviral or antibiotics Dictation was produced using [employer] dictation software. please excuse any grammatical, word or spelling errors.
[2023-05-11] MEDS: LITHIUM CARBONATE 300 MG CAP PO SCH (20:18)
[2023-05-11] MEDS: traZODone HCL 100 MG TAB PO SCH (20:18)
--- NOTE | 2023-05-12 05:19 | PN ---
PROGRESS NOTE DATE OF SERVICE: 05/11/2023 SUBJECTIVE: This 22-year-old woman is admitted with psych issues and COVID-19, is being closely monitored. The patient is stable. manager order and social scientist are working on placement issues. PHYSICAL EXAMINATION: VITAL SIGNS: Pulse 62, blood pressure 110/81, respirations 16. CHEST: Clear to auscultation. CARDIOVASCULAR: S1, S2. ABDOMEN: Soft. NERVOUS SYSTEM: Nonfocal. LABORATORY DATA: Reviewed. ASSESSMENT: 1. Acute COVID-19 infection. 2. Elevated D-dimer. The patient refused CT angio and further workup. 3. Increased WBC. 4. Violent outburst in the intermediate, possibly a psychotic agitation. 5. Neurodevelopmental delay. 6. Anxiety, bipolar depression. 7. Panic disorder. RECOMMENDATIONS: I recommend to continue current management and symptomatic treatment. Otherwise, continue the current medications. Closely follow with Infectious Disease. As mentioned earlier, the patient is combative at times and refusing testing. Further recommendations to follow. MMODL / IJN: [id number] /
[2023-05-12] MEDS: CALCIUM CARB-VIT D 500 MG-5 MCG TAB PO SCH (08:45)
[2023-05-12] MEDS: CHOLECALCIFEROL 125 MCG (5000 IU) TABLET PO SCH (08:45)
[2023-05-12] MEDS: DIVALPROEX 500 MG TABLET.DR PO SCH ×2 (08:45→20:12)
[2023-05-12] MEDS: ZINC SULFATE 220 MG CAP PO SCH (08:45)
[2023-05-12] MEDS: ASCORBIC ACID 500 MG TAB PO SCH (08:45)
[2023-05-12] MEDS: DAYSEE PO SCH (08:46)
[2023-05-12] MEDS: OLANZapine 5 MG TAB PO SCH ×2 (08:46→20:13)
[2023-05-12] MEDS: DIVALPROEX SPRINKLE 125 MG CAP.SPRINK PO SCH ×2 (08:46→20:12)
[2023-05-12] MEDS: polyethylene glycoL 3350 17 GM POWD.PACK PO SCH (08:56)
[2023-05-12] MEDS: ENOXAPARIN 40 MG/0.4 ML SYRINGE SQ SCH (08:58)
--- NOTE | 2023-05-12 13:35 | PN ---
PROGRESS NOTE DATE OF SERVICE: 05/12/2023 SUBJECTIVE: This 22-year-old woman was admitted with acute groin infection, also significant psychiatric issues. The manager social services and case supervisor are working on finding an AF home. No chest pain, no palpitations. She is refusing testing. The patient is occasionally combative. OBJECTIVE: VITAL SIGNS: Pulse 63, blood pressure 105/60, respirations 18. CHEST: Clear. CARDIOVASCULAR: S1, S2. ABDOMEN: Soft. NERVOUS SYSTEM: Nonfocal. LABORATORY DATA: Reviewed. ASSESSMENT: 1. Acute COVID-19 infection. 2. Elevated D-dimer. The patient refused CT angio and further workup. 3. Increased WBC. 4. Violent outbursts in the long term, possibly psychotic agitation. 5. Neurodevelopment delay. 6. Anxiety, bipolar depression. 7. Panic disorder. RECOMMENDATIONS: Recommended to continue current management, continue symptomatic treatment. The patient is clinically stable. Pulse ox 96%. Continue the current medications and as mentioned, follow closely infectious as mentioned earlier. Discharge home once discharge planning completed by case supervisor and manager social services. MMVIVIL / FLORESITA: [id number] /
[2023-05-12] MEDS: traZODone HCL 100 MG TAB PO SCH (20:12)
[2023-05-12] MEDS: LITHIUM CARBONATE 300 MG CAP PO SCH (20:12)
[2023-05-13 08:16] VITALS: BMI 28.3
[2023-05-13] MEDS: DIVALPROEX SPRINKLE 125 MG CAP.SPRINK PO SCH ×2 (09:06→20:33)
[2023-05-13] MEDS: ZINC SULFATE 220 MG CAP PO SCH (09:06)
[2023-05-13] MEDS: CHOLECALCIFEROL 125 MCG (5000 IU) TABLET PO SCH (09:06)
[2023-05-13] MEDS: DIVALPROEX 500 MG TABLET.DR PO SCH ×2 (09:06→20:33)
[2023-05-13] MEDS: ASCORBIC ACID 500 MG TAB PO SCH (09:06)
[2023-05-13] MEDS: CALCIUM CARB-VIT D 500 MG-5 MCG TAB PO SCH (09:06)
[2023-05-13] MEDS: polyethylene glycoL 3350 17 GM POWD.PACK PO SCH (09:07)
[2023-05-13] MEDS: OLANZapine 5 MG TAB PO SCH ×2 (09:08→20:33)
[2023-05-13] MEDS: DAYSEE PO SCH (09:09)
[2023-05-13] MEDS: ENOXAPARIN 40 MG/0.4 ML SYRINGE SQ SCH (09:10)
--- NOTE | 2023-05-13 16:16 | P.PN ---
Subjective Progress Note Date: 05/12/23 Principal diagnosis: Reason for follow-up is COVID-19 Patient is a 22-year-old female with a past medical history significant for anxiety depression panic disorder history of developmental delay and jail resident patient has been brought into the hospital from the jail due to violent outburst, patient tested positive for COVID-19 however the patient was not hypoxic chest x-ray negative for acute cardiopulmonary disease process. On today's evaluation that is 05/12/2023, the patient continues to be afebrile, the patient is breathing comfortably on room air and no need for supplemental oxygen, the patient denies any chest pain or cough no abdominal pain no diarrhea has been reported No new labs has been obtained today Objective - Vital Signs Vital signs: Vital Signs Temp 98.2 F 05/12/23 07:23 Pulse 63 05/12/23 07:23 Resp 18 05/12/23 07:23 BP 105/67 05/12/23 07:23 Pulse Ox 96 05/12/23 07:23 FiO2 Intake & Output 05/11/23 05/12/23 05/12/23 18:59 06:59 18:59 Intake Total 2400 Balance 2400 Intake: Oral 2400 Other: # Voids 3 4 - Exam Middle-age female lying in bed in no distress - Labs CBC & Chem 7: 05/08/23 07:06 05/08/23 07:06 Assessment and Plan (1) COVID-19 Current Visit: Yes Status: Acute Code(s): U07.1 - COVID-19 SNOMED Code(s): 151920166 Plan: 1patient tested positive for COVID-19 seem to be new diagnosis and she tested negative on 04/27/2023 patient is currently afebrile patient is nonhypoxic lungs are clear to auscultation, chest x-ray was negative for acute cardiopulmonary disease more likely mild COVID-19 illness antigen will be mostly supportive 2- patient is afebrile and respiratory status remains to be stable, will continue with the current supportive treatment no need for antiviral or antibiotics Dictation was produced using [employer] dictation software. please excuse any grammatical, word or spelling errors. Time with Patient: Less than 30
--- NOTE | 2023-05-13 16:17 | P.PN ---
Subjective Progress Note Date: 05/13/23 Principal diagnosis: Reason for follow-up is COVID-19 Patient is a 22-year-old female with a past medical history significant for anxiety depression panic disorder history of developmental delay and [facility] resident patient has been brought [facility] from the [facility] due to violent outburst, patient tested positive for COVID-19 however the patient was not hypoxic chest x-ray negative for acute cardiopulmonary disease process. On today's evaluation that is 05/13/2023, the patient is afebrile, the patient is breathing comfortably on room air, the patient denies any cough or sputum production, no abdominal pain no diarrhea has been reported No new labs has been obtained today Objective - Vital Signs Vital signs: Vital Signs Temp 98.3 F 05/13/23 06:47 Pulse 56 L 05/13/23 06:47 Resp 14 05/13/23 06:47 BP 102/65 05/13/23 06:47 Pulse Ox 97 05/13/23 06:47 FiO2 Intake & Output 05/12/23 05/13/23 05/13/23 18:59 06:59 18:59 Output Total 300 Balance -300 Weight 77.111 kg Output: Urine 300 Other: # Voids 3 2 - Exam Middle-age female lying in bed in no distress - Labs CBC & Chem 7: 05/08/23 07:06 05/08/23 07:06 Assessment and Plan (1) COVID-19 Current Visit: Yes Status: Acute Code(s): U07.1 - COVID-19 SNOMED Code(s): 289448328 Plan: 1patient tested positive for COVID-19 seem to be new diagnosis and she tested negative on 04/27/2023 patient is currently afebrile patient is nonhypoxic lungs are clear to auscultation, chest x-ray was negative for acute cardiopulmonary disease more likely mild COVID-19 illness antigen will be mostly supportive 2- patient is afebrile and respiratory status remains to be stable, will continue with the current supportive treatment Dictation was produced using [employer] software. please excuse any grammatical, word or spelling errors.
[2023-05-13] MEDS: traZODone HCL 100 MG TAB PO SCH (20:33)
[2023-05-13] MEDS: LITHIUM CARBONATE 300 MG CAP PO SCH (20:33)
[2023-05-13] MEDS: PATIENTS OWN MED PO PRN (21:42)
--- NOTE | 2023-05-14 05:05 | P.PN ---
Subjective Progress Note Date: 05/13/23 This is a 22-year-old female who was recently admitted with acute psychosis and was awaiting placement on [address]. and held in the ER for quite some time. Patient was tested positive for Covid after having a cough and per nursing staff was reporting having symptoms. Infectious disease following as well and not in any respiratory distress. Patient does have a sitter at the bedside and was evaluated by psychiatry and cleared the patient for discharge with outpatient follow-up with [facility]. Patient does have a guardian and case management is following working on possible [facility] home that will accept the patient. Patient is not able to return to her previous AFC. Patient is afebrile with no reported chest pain or shortness of breath. No reported nausea or vomiting and patient has been tolerating diet. Per nursing staff patient can become extremely agitated at times although redirects. Review of systems: Constitutional: No reports of fatigue, fever, or chills Cardiovascular: No reports of chest pain or palpitations Respiratory: No reports of shortness of breath or cough GI: No reports of nausea, no reports of vomiting, no diarrhea : No reports of dysuria or retention Neurovascular: No reports of generalized weakness All medications have been reviewed PHYSICAL EXAMINATION: GENERAL: The patient is alert and oriented x4, Well developed, well nourished. HEENT: Pupils are round and equally reacting to light. EOMI. no scleral icterus. No conjunctival pallor. Normocephalic, atraumatic. No pharyngeal erythema. No thyromegaly. CARDIOVASCULAR: S1 and S2 muffled PULMONARY: diminished breath sounds bilaterally with no wheezing or rhonchi noted. ABDOMEN: soft. Nontender on exam. obese. non-distended, normoactive bowel sounds. No palpable organomegaly. MUSCULOSKELETAL: No joint swelling or deformity. EXTREMITIES: No cyanosis, clubbing, or pedal edema. NEUROLOGICAL: Gross neurological examination did not reveal any focal deficits. SKIN: No rashes. Assessment: Acute COVID-19 infection Elevated d-dimer likely secondary to above, patient refused CT angiogram and further workup Violent outbursts in the custodial, psychotic agitation Neurodevelopmental delay history History of anxiety/bipolar depression Panic disorder history GI prophylaxis DVT prophylaxis Full code Plan: Recommend to continue with current medications and management with case management following working on AFC that will accept the patient. Patient has a legal guardian and reports is unable to return to previous A[facility] home Patient has been refusing most care and treatment Continue with sitter at the bedside as patient is unable to leave AMA Encouraged increased activity as tolerated Psychiatry has evaluated the patient stating she does not meet inpatient criteria for [facility]. and recommending outpatient follow-up with [facility] Encouraged medication compliance The impression and plan of care has been dictated by Elizabeth Allan, nurse practitioner as directed. Dr. Letty MD I have performed a history and examination and MDM of this patient, discussed the same with the dictator, and agree with the dictator's assessment and plan as written ,documented as a scribe. Based on total visit time, I have performed more than 50% of the visit. Any additional findings or plans will be noted. Objective - Vital Signs Vital signs: Vital Signs Temp 98.3 F 05/13/23 06:47 Pulse 56 L 05/13/23 06:47 Resp 14 05/13/23 06:47 BP 102/65 05/13/23 06:47 Pulse Ox 97 05/13/23 06:47 FiO2 Intake & Output 05/12/23 05/13/23 05/13/23 18:59 06:59 18:59 Weight 77.111 kg Other: # Voids 3 2 - Labs CBC & Chem 7: 05/08/23 07:06 05/08/23 07:06
[2023-05-14] MEDS: OLANZapine 5 MG TAB PO SCH ×2 (08:22→20:48)
[2023-05-14] MEDS: CALCIUM CARB-VIT D 500 MG-5 MCG TAB PO SCH (08:22)
[2023-05-14] MEDS: DIVALPROEX SPRINKLE 125 MG CAP.SPRINK PO SCH ×2 (08:22→20:48)
[2023-05-14] MEDS: DIVALPROEX 500 MG TABLET.DR PO SCH ×2 (08:22→20:48)
[2023-05-14] MEDS: polyethylene glycoL 3350 17 GM POWD.PACK PO SCH (08:22)
[2023-05-14] MEDS: ZINC SULFATE 220 MG CAP PO SCH (08:22)
[2023-05-14] MEDS: DAYSEE PO SCH (08:22)
[2023-05-14] MEDS: ASCORBIC ACID 500 MG TAB PO SCH (08:22)
[2023-05-14] MEDS: ENOXAPARIN 40 MG/0.4 ML SYRINGE SQ SCH (08:23)
--- NOTE | 2023-05-14 12:28 | P.PN ---
Subjective Progress Note Date: 05/14/23 Principal diagnosis: Reason for follow-up is COVID-19 Patient is a 22-year-old female with a past medical history significant for anxiety depression panic disorder history of developmental delay and [facility] resident patient has [facility] due to [facility] outburst, patient tested positive for COVID-19 however the patient was not hypoxic chest x-ray negative for acute cardiopulmonary disease process. On today's evaluation that is 05/14/2023, the patient continues to be afebrile patient is breathing comfortably on room air, no need for supplemental oxygen, patient denies any chest pain or cough no nausea no vomiting and no diarrhea has been reported, mention feeling better Objective - Vital Signs Vital signs: Vital Signs Temp 99.1 F 05/14/23 07:12 Pulse 59 L 05/14/23 07:12 Resp 14 05/14/23 07:12 BP 116/74 05/14/23 07:12 Pulse Ox 97 05/14/23 07:12 FiO2 Intake & Output 05/13/23 05/14/23 05/14/23 18:59 06:59 18:59 Output Total 300 Balance -300 Weight 77.111 kg Output: Urine 300 Other: # Voids 4 - Exam Middle-age female lying in bed in no distress - Labs CBC & Chem 7: 05/08/23 07:06 05/08/23 07:06 Assessment and Plan (1) COVID-19 Current Visit: Yes Status: Acute Code(s): U07.1 - COVID-19 SNOMED Code(s): 622456174 Plan: 1patient tested positive for COVID-19 seem to be new diagnosis and she tested negative on 04/27/2023 patient is currently afebrile patient is nonhypoxic lungs are clear to auscultation, chest x-ray was negative for acute cardiopulmonary disease more likely mild COVID-19 illness antigen will be mostly supportive 2- patient is afebrile and respiratory status remains to be stable, no need for steroids or antibiotic therapy Dictation was produced using [employer] dictation software. please excuse any grammatical, word or spelling errors. Time with Patient: Less than 30
[2023-05-14] MEDS: LITHIUM CARBONATE 300 MG CAP PO SCH (20:48)
[2023-05-14] MEDS: traZODone HCL 100 MG TAB PO SCH (20:48)
[2023-05-14] MEDS: PATIENTS OWN MED PO PRN (22:32)
--- NOTE | 2023-05-15 06:54 | P.PN ---
Subjective Progress Note Date: 05/14/23 This is a 22-year-old female who was recently admitted with acute psychosis and was awaiting placement on [facility] and held in the ER for quite some time. Patient was tested positive for Covid after having a cough and per nursing staff was reporting having symptoms. Infectious disease following as well and not in any respiratory distress. Patient does have a sitter at the bedside and was evaluated by psychiatry and cleared the patient for discharge with outpatient follow-up with [facility]. Patient does have a guardian and case management is following working on possible [facility] home that will accept the patient. Patient is not able to return to her previous AFC. Patient is afebrile with no reported chest pain or shortness of breath. No reported nausea or vomiting and patient has been tolerating diet. Per nursing staff patient can become extremely agitated at times although redirects. 05/15/2023 Patient is seen and evaluated in follow-up this morning with sitter at bedside as patient is unable to leave AMA awaiting AFC that will accept. Case management following working on follow-ups and awaiting response with [facility] following. Patient is afebrile with no reported chest pain or shortness of breath. Patient was brought to the medical floor secondary to Covid 19 infection with no hypoxic respiratory distress noted. Patient is afebrile and denies any nausea or vomiting. Review of systems: Constitutional: No reports of fatigue, fever, or chills Cardiovascular: No reports of chest pain or palpitations Respiratory: No reports of shortness of breath or cough GI: No reports of nausea, no reports of vomiting, no diarrhea : No reports of dysuria or retention Neurovascular: No reports of generalized weakness All medications have been reviewed PHYSICAL EXAMINATION: GENERAL: The patient is alert and oriented x4, Well developed, well nourished. Agitated at times HEENT: Pupils are round and equally reacting to light. EOMI. no scleral icterus. No conjunctival pallor. Normocephalic, atraumatic. No pharyngeal erythema. No thyromegaly. CARDIOVASCULAR: S1 and S2 muffled PULMONARY: diminished breath sounds bilaterally with no wheezing or rhonchi noted. ABDOMEN: soft. Nontender on exam. obese. non-distended, normoactive bowel sounds. No palpable organomegaly. MUSCULOSKELETAL: No joint swelling or deformity. EXTREMITIES: No cyanosis, clubbing, or pedal edema. NEUROLOGICAL: Gross neurological examination did not reveal any focal deficits. SKIN: No rashes. Assessment: Acute COVID-19 infection Elevated d-dimer likely secondary to above, patient refused CT angiogram and further workup Violent outbursts in the fpc, psychotic agitation Neurodevelopmental delay history History of anxiety/bipolar depression Panic disorder history GI prophylaxis DVT prophylaxis Full code Plan: Recommend to continue with current medications and management with case management following working on [facility]FC that will accept the patient. Patient has a legal guardian and reports is unable to return to previous AFC home Patient has been refusing most care and treatment Continue with sitter at the bedside as patient is unable to leave AMA Encouraged increased activity as tolerated Psychiatry has evaluated the patient stating she does not meet inpatient criteria for 3 [facility]. and recommending outpatient follow-up with [facility]. Psychiatry has signed off the case Encouraged medication compliance The impression and plan of care has been dictated by Elizabeth Allan, nurse practitioner as directed. Dr. Letty MD I have performed a history and examination and MDM of this patient, discussed the same with the dictator, and agree with the dictator's assessment and plan as written ,documented as a scribe. Based on total visit time, I have performed more than 50% of the visit. Any additional findings or plans will be noted. Objective - Vital Signs Vital signs: Vital Signs Temp 98.3 F 05/15/23 01:34 Pulse 64 05/15/23 01:34 Resp 18 05/15/23 01:34 BP 100/69 05/15/23 01:34 Pulse Ox 96 05/15/23 01:34 FiO2 Intake & Output 05/14/23 05/14/23 05/15/23 06:59 18:59 06:59 Other: # Voids 2 3 - Labs CBC & Chem 7: 05/08/23 07:06 05/08/23 07:06
[2023-05-15] MEDS: polyethylene glycoL 3350 17 GM POWD.PACK PO SCH (07:58)
[2023-05-15] MEDS: DIVALPROEX SPRINKLE 125 MG CAP.SPRINK PO SCH ×2 (07:58→20:30)
[2023-05-15] MEDS: CALCIUM CARB-VIT D 500 MG-5 MCG TAB PO SCH (07:58)
[2023-05-15] MEDS: OLANZapine 5 MG TAB PO SCH ×2 (07:58→20:29)
[2023-05-15] MEDS: DIVALPROEX 500 MG TABLET.DR PO SCH ×2 (07:58→20:31)
[2023-05-15] MEDS: ENOXAPARIN 40 MG/0.4 ML SYRINGE SQ SCH (07:59)
[2023-05-15] MEDS: ASCORBIC ACID 500 MG TAB PO SCH (07:59)
[2023-05-15] MEDS: ZINC SULFATE 220 MG CAP PO SCH (07:59)
[2023-05-15] MEDS: DAYSEE PO SCH (07:59)
--- NOTE | 2023-05-15 18:14 | P.PN ---
Subjective Progress Note Date: 05/15/23 This is a 22-year-old female who was recently admitted with acute psychosis and was awaiting placement on [facility] and held in the ER for quite some time. Patient was tested positive for Covid after having a cough and per nursing staff was reporting having symptoms. Infectious disease following as well and not in any respiratory distress. Patient does have a sitter at the bedside and was evaluated by psychiatry and cleared the patient for discharge with outpatient follow-up with [facility]. Patient does have a guardian and case management is following working on possible [facility] home that will accept the patient. Patient is not able to return to her previous AFC. Patient is afebrile with no reported chest pain or shortness of breath. No reported nausea or vomiting and patient has been tolerating diet. Per nursing staff patient can become extremely agitated at times although redirects. 05/15/2023 Patient is seen and evaluated in follow-up this morning with sitter at bedside as patient is unable to leave AMA awaiting AFC that will accept. Case management following working on follow-ups and awaiting response with [facility] following. Patient is afebrile with no reported chest pain or shortness of breath. Patient was brought to the medical floor secondary to Covid 19 infection with no hypoxic respiratory distress noted. Patient is afebrile and denies any nausea or vomiting. Review of systems: Constitutional: No reports of fatigue, fever, or chills Cardiovascular: No reports of chest pain or palpitations Respiratory: No reports of shortness of breath or cough GI: No reports of nausea, no reports of vomiting, no diarrhea : No reports of dysuria or retention Neurovascular: No reports of generalized weakness All medications have been reviewed PHYSICAL EXAMINATION: GENERAL: The patient is alert and oriented x4, Well developed, well nourished. Agitated at times HEENT: Pupils are round and equally reacting to light. EOMI. no scleral icterus. No conjunctival pallor. Normocephalic, atraumatic. No pharyngeal erythema. No thyromegaly. CARDIOVASCULAR: S1 and S2 muffled PULMONARY: diminished breath sounds bilaterally with no wheezing or rhonchi noted. ABDOMEN: soft. Nontender on exam. obese. non-distended, normoactive bowel sounds. No palpable organomegaly. MUSCULOSKELETAL: No joint swelling or deformity. EXTREMITIES: No cyanosis, clubbing, or pedal edema. NEUROLOGICAL: Gross neurological examination did not reveal any focal deficits. SKIN: No rashes. Assessment: Acute COVID-19 infection Elevated d-dimer likely secondary to above, patient refused CT angiogram and further workup Violent outbursts in the longterm, psychotic agitation Neurodevelopmental delay history History of anxiety/bipolar depression Panic disorder history GI prophylaxis DVT prophylaxis Full code Plan: Recommend to continue with current medications and management with case management following working on [facility] that will accept the patient. Patient has a legal guardian and reports is unable to return to previous [facility] home Continue with sitter at the bedside as patient is unable to leave AMA Encouraged increased activity as tolerated Psychiatry has evaluated the patient stating she does not meet inpatient criteria for [facility]. and recommending outpatient follow-up with [facility]. Psychiatry has signed off the case Encouraged medication compliance Case management working in attempting to discuss further discharge planning with [facility] as well as public guardian's office. Patient is medically stable and discharge pending a safe discharge plan with AF. The impression and plan of care has been dictated by Elizabeth Allan, nurse practitioner as directed. Dr. Letty MD I have performed a history and examination and MDM of this patient, discussed the same with the dictator, and agree with the dictator's assessment and plan as written ,documented as a scribe. Based on total visit time, I have performed more than 50% of the visit. Any additional findings or plans will be noted. Objective - Vital Signs Vital signs: Vital Signs Temp 98.5 F 05/15/23 08:29 Pulse 81 05/15/23 08:29 Resp 18 05/15/23 08:29 BP 113/58 05/15/23 08:29 Pulse Ox 96 05/15/23 08:29 FiO2 Intake & Output 05/14/23 05/15/23 05/15/23 18:59 06:59 18:59 Other: # Voids 2 3 - Labs CBC & Chem 7: 05/08/23 07:06 05/08/23 07:06
[2023-05-15] MEDS: LITHIUM CARBONATE 300 MG CAP PO SCH (20:29)
[2023-05-15] MEDS: traZODone HCL 100 MG TAB PO SCH (20:29)
[2023-05-16] MEDS: ASCORBIC ACID 500 MG TAB PO SCH (08:34)
[2023-05-16] MEDS: ENOXAPARIN 40 MG/0.4 ML SYRINGE SQ SCH (08:34)
[2023-05-16] MEDS: DIVALPROEX SPRINKLE 125 MG CAP.SPRINK PO SCH ×2 (08:34→21:01)
[2023-05-16] MEDS: ZINC SULFATE 220 MG CAP PO SCH (08:34)
[2023-05-16] MEDS: DIVALPROEX 500 MG TABLET.DR PO SCH ×2 (08:34→21:01)
[2023-05-16] MEDS: CALCIUM CARB-VIT D 500 MG-5 MCG TAB PO SCH (08:34)
[2023-05-16] MEDS: OLANZapine 5 MG TAB PO SCH ×2 (08:35→21:01)
[2023-05-16] MEDS: DAYSEE PO SCH (08:35)
[2023-05-16] MEDS: polyethylene glycoL 3350 17 GM POWD.PACK PO SCH (08:35)
[2023-05-16] MEDS: LITHIUM CARBONATE 300 MG CAP PO SCH (21:01)
[2023-05-16] MEDS: traZODone HCL 100 MG TAB PO SCH (21:01)
[2023-05-17] MEDS: ENOXAPARIN 40 MG/0.4 ML SYRINGE SQ SCH ×2 (07:01→07:07)
[2023-05-17] MEDS: DIVALPROEX 500 MG TABLET.DR PO SCH ×2 (07:02→20:13)
[2023-05-17] MEDS: ASCORBIC ACID 500 MG TAB PO SCH (07:02)
[2023-05-17] MEDS: ZINC SULFATE 220 MG CAP PO SCH (07:02)
[2023-05-17] MEDS: CALCIUM CARB-VIT D 500 MG-5 MCG TAB PO SCH (07:02)
[2023-05-17] MEDS: polyethylene glycoL 3350 17 GM POWD.PACK PO SCH (07:02)
[2023-05-17] MEDS: DAYSEE PO SCH (07:03)
[2023-05-17] MEDS: DIVALPROEX SPRINKLE 125 MG CAP.SPRINK PO SCH ×2 (07:03→20:13)
[2023-05-17] MEDS: OLANZapine 5 MG TAB PO SCH ×2 (07:03→20:13)
--- NOTE | 2023-05-17 09:01 | P.PN ---
Subjective Progress Note Date: 05/16/23 This is a 22-year-old female who was recently admitted with acute psychosis and was awaiting placement on [facility] and held in the ER for quite some time. Patient was tested positive for Covid after having a cough and per nursing staff was reporting having symptoms. Infectious disease following as well and not in any respiratory distress. Patient does have a sitter at the bedside and was evaluated by psychiatry and cleared the patient for discharge with outpatient follow-up with [facility]. Patient does have a guardian and case management is following working on possible [facility] home that will accept the patient. Patient is not able to return to her previous AFC. Patient is afebrile with no reported chest pain or shortness of breath. No reported nausea or vomiting and patient has been tolerating diet. Per nursing staff patient can become extremely agitated at times although redirects. 05/15/2023 Patient is seen and evaluated in follow-up this morning with sitter at bedside as patient is unable to leave AMA awaiting AFC that will accept. Case management following working on follow-ups and awaiting response with [facility] following. Patient is afebrile with no reported chest pain or shortness of breath. Patient was brought to the medical floor secondary to Covid 19 infection with no hypoxic respiratory distress noted. Patient is afebrile and denies any nausea or vomiting. 05/16/2023 Patient is seen here in follow-up with sitter at the bedside as patient is unable to leave AMA as patient was initially admitted here for psychiatric evaluation. Patient has been evaluated by psychiatry and cleared for discharge recommending outpatient follow-up with continued care at [facility]. Patient unable to return to her current AFC and case management has been working with legal guardian and [facility] regarding accepting AFC's. None currently and awaiting referrals. Patient is afebrile with no reported chest pain or shortness of breath. Patient is tolerating diet and has not reported any nausea or vomiting. Review of systems: Constitutional: No reports of fatigue, fever, or chills Cardiovascular: No reports of chest pain or palpitations Respiratory: No reports of shortness of breath or cough GI: No reports of nausea, no reports of vomiting, no diarrhea : No reports of dysuria or retention Neurovascular: No reports of generalized weakness All medications have been reviewed PHYSICAL EXAMINATION: GENERAL: The patient is alert and oriented x4, Well developed, well nourished. Agitated at times but redirectable HEENT: Pupils are round and equally reacting to light. EOMI. no scleral icterus. No conjunctival pallor. Normocephalic, atraumatic. No pharyngeal erythema. No thyromegaly. CARDIOVASCULAR: S1 and S2 muffled PULMONARY: diminished breath sounds bilaterally with no wheezing or rhonchi noted. ABDOMEN: soft. Nontender on exam. obese. non-distended, normoactive bowel so unds. No palpable organomegaly. MUSCULOSKELETAL: No joint swelling or deformity. EXTREMITIES: No cyanosis, clubbing, or pedal edema. NEUROLOGICAL: Gross neurological examination did not reveal any focal deficits. SKIN: No rashes. Assessment: Acute COVID-19 infection Elevated d-dimer likely secondary to above, patient refused CT angiogram and further workup Violent outbursts in the snf, psychotic agitation Neurodevelopmental delay history History of anxiety/bipolar depression Panic disorder history GI prophylaxis DVT prophylaxis Full code Plan: Recommend to continue with current medications and management with case management following working on [facility] that will accept the patient. Patient has a legal guardian and reports is unable to return to previous [facility] home Continue with sitter at the bedside as patient is unable to leave AMA Encouraged increased activity as tolerated Psychiatry has evaluated the patient stating she does not meet inpatient criteria for [facility]. and recommending outpatient follow-up with [facility]. Psychiatry has signed off the case Encouraged medication compliance Case management working in attempting to discuss further discharge planning with [facility] as well as public guardian's office. Patient is medically stable and discharge pending a safe discharge plan with [facility]. Multiple referrals have been placed with no further updates as of yet. Unlikely patient will discharge any time soon. The impression and plan of care has been dictated by Elizabeth Allan, nurse practitioner as directed. Dr. Letty MD I have performed a history and examination and MDM of this patient, discussed the same with the dictator, and agree with the dictator's assessment and plan as written ,documented as a scribe. Based on total visit time, I have performed more than 50% of the visit. Any additional findings or plans will be noted. Objective - Vital Signs Vital signs: Vital Signs Temp 97.3 F L 05/16/23 02:00 Pulse 70 05/16/23 02:00 Resp 17 01/19/24 02:00 BP 109/71 05/16/23 02:00 Pulse Ox 97 05/16/23 02:00 FiO2 Intake & Output 05/15/23 05/16/23 05/16/23 18:59 06:59 18:59 Intake Total 0 Output Total 300 Balance -300 0 Intake: Oral 0 Output: Urine 300 Other: # Voids 1 - Labs CBC & Chem 7: 05/08/23 07:06 05/08/23 07:06
--- NOTE | 2023-05-17 13:18 | P.PN ---
Subjective Progress Note Date: 05/17/23 This is a 22-year-old female who was recently admitted with acute psychosis and was awaiting placement on [facility]. and held in the ER for quite some time. Patient was tested positive for Covid after having a cough and per nursing staff was reporting having symptoms. Infectious disease following as well and not in any respiratory distress. Patient does have a sitter at the bedside and was evaluated by psychiatry and cleared the patient for discharge with outpatient follow-up with [facility]. Patient does have a guardian and case management is following working on possible [facility] home that will accept the patient. Patient is not able to return to her previous AFC. Patient is afebrile with no reported chest pain or shortness of breath. No reported nausea or vomiting and patient has been tolerating diet. Per nursing staff patient can become extremely agitated at times although redirects. 05/15/2023 Patient is seen and evaluated in follow-up this morning with sitter at bedside as patient is unable to leave AMA awaiting AFC that will accept. Case management following working on follow-ups and awaiting response with [facility] following. Patient is afebrile with no reported chest pain or shortness of cindy ath. Patient was brought to the medical floor secondary to Covid 19 infection with no hypoxic respiratory distress noted. Patient is afebrile and denies any nausea or vomiting. 05/16/2023 Patient is seen here in follow-up with sitter at the bedside as patient is unable to leave AMA as patient was initially admitted here for psychiatric evaluation. Patient has been evaluated by psychiatry and cleared for discharge recommending outpatient follow-up with continued care at [facility]. Patient unable to return to her current AFC and case management has been working with legal guardian and [facility] regarding accepting AFC's. None currently and awaiting referrals. Patient is afebrile with no reported chest pain or shortness of breath. Patient is tolerating diet and has not reported any nausea or vomiting. 05/17. Patient seen and examined. No acute issues overnight. Vital signs stable REVIEW OF SYSTEMS: CONSTITUTIONAL: No fever, no malaise,. CARDIOVASCULAR: No chest pain, no palpitations, no syncope. PULMONARY: No shortness of breath, no cough, GASTROINTESTINAL: No diarrhea, no nausea, no vomiting, no abdominal pain. NEUROLOGICAL: No headaches, no weakness, PHYSICAL EXAMINATION: GENERAL: The patient is alert and oriented x3, not in any acute distress. HEENT: Pupils are round and equally reacting to light. EOMI. No scleral icterus. No conjunctival pallor. Normocephalic, atraumatic. No pharyngeal erythema. No thyromegaly. CARDIOVASCULAR: S1 and S2 present. No murmurs, rubs, or gallops. PULMONARY: Chest is clear to auscultation, no wheezing or crackles. ABDOMEN: Soft, nontender, nondistended, normoactive bowel sounds. No palpable organomegaly. MUSCULOSKELETAL: No joint swelling or deformity. EXTREMITIES: No cyanosis, clubbing, or pedal edema. NEUROLOGICAL: Gross neurological examination did not reveal any focal deficits. SKIN: No rashes. Assessment and plan Acute COVID-19 infection Elevated d-dimer likely secondary to above, patient refused CT angiogram and further workup Violent outbursts in the retirement, psychotic agitation Neurodevelopmental delay history History of anxiety/bipolar depression Panic disorder history GI prophylaxis DVT prophylaxis Full code Plan: Recommend to continue with current medications and management with case management following working on [facility] that will accept the patient. Patient has a legal guardian and reports is unable to return to previous [facility] home Continue with sitter at the bedside as patient is unable to leave AMA Encouraged increased activity as tolerated Psychiatry has evaluated the patient stating she does not meet inpatient criteria for [facility]. and recommending outpatient follow-up with [facility]. Psychiatry has signed off the case Case management working in attempting to discuss further discharge planning with [facility] as well as public guardian's office. Patient is medically stable and discharge pending a safe discharge plan with [facility]. Labs and medication were reviewed.. Continue same treatment. Continue with symptomatic treatment. Resume home medication. Monitor labs and vitals. DVT and GI prophylaxis. Further recommendations as per clinical course of the patient Dictation was produced using [employer] dictation software. please excuse any g rammatical, word or spelling errors. Objective - Vital Signs Vital signs: Vital Signs Temp 97.3 F L 05/17/23 06:50 Pulse 80 05/17/23 06:50 Resp 20 05/17/23 06:50 BP 105/72 05/17/23 06:50 Pulse Ox 99 05/17/23 06:50 FiO2 Intake & Output 05/16/23 05/17/23 05/17/23 18:59 06:59 18:59 Intake Total 1140 Balance 1140 Intake: Oral 1140 Other: Voiding Method Toilet # Voids 4 3 - Labs CBC & Chem 7: 05/08/23 07:06 05/08/23 07:06
[2023-05-17] MEDS: LITHIUM CARBONATE 300 MG CAP PO SCH (20:13)
[2023-05-17] MEDS: traZODone HCL 100 MG TAB PO SCH (20:13)
[2023-05-18 05:04] LABS: Glucose,Whole Blood 74 mg/dL (70-110)
[2023-05-18] MEDS: ENOXAPARIN 40 MG/0.4 ML SYRINGE SQ SCH (07:20)
[2023-05-18] MEDS: polyethylene glycoL 3350 17 GM POWD.PACK PO SCH (07:23)
[2023-05-18] MEDS: CALCIUM CARB-VIT D 500 MG-5 MCG TAB PO SCH (07:23)
[2023-05-18] MEDS: ZINC SULFATE 220 MG CAP PO SCH (07:23)
[2023-05-18] MEDS: ASCORBIC ACID 500 MG TAB PO SCH (07:23)
[2023-05-18] MEDS: DAYSEE PO SCH (07:23)
[2023-05-18] MEDS: DIVALPROEX 500 MG TABLET.DR PO SCH ×2 (07:23→20:12)
[2023-05-18] MEDS: OLANZapine 5 MG TAB PO SCH ×2 (07:24→20:12)
[2023-05-18] MEDS: DIVALPROEX SPRINKLE 125 MG CAP.SPRINK PO SCH ×2 (07:24→20:12)
--- NOTE | 2023-05-18 12:46 | P.PN ---
Subjective Progress Note Date: 05/18/23 This is a 22-year-old female who was recently admitted with acute psychosis and was awaiting placement on [address] and held in the ER for quite some time. Patient was tested positive for Covid after having a cough and per nursing staff was reporting having symptoms. Infectious disease following as well and not in any respiratory distress. Patient does have a sitter at the bedside and was evaluated by psychiatry and cleared the patient for discharge with outpatient follow-up with [facility]. Patient does have a guardian and case management is following working on possible AFC home that will accept the patient. Patient is not able to return to her previous AFC. Patient is afebrile with no reported chest pain or shortness of breath. No reported nausea or vomiting and patient has been tolerating diet. Per nursing staff patient can become extremely agitated at times although redirects. 05/15/2023 Patient is seen and evaluated in follow-up this morning with sitter at bedside as patient is unable to leave AMA awaiting AFC that will accept. Case management following working on follow-ups and awaiting response with [facility] following. Patient is afebrile with no reported chest pain or shortness of cindy ath. Patient was brought to the medical floor secondary to Covid 19 infection with no hypoxic respiratory distress noted. Patient is afebrile and denies any nausea or vomiting. 05/16/2023 Patient is seen here in follow-up with sitter at the bedside as patient is unable to leave AMA as patient was initially admitted here for psychiatric evaluation. Patient has been evaluated by psychiatry and cleared for discharge recommending outpatient follow-up with continued care at [facility]. Patient unable to return to her current AFC and case management has been working with legal guardian and [facility] regarding accepting AFC's. None currently and awaiting referrals. Patient is afebrile with no reported chest pain or shortness of breath. Patient is tolerating diet and has not reported any nausea or vomiting. 05/17. Patient seen and examined. No acute issues overnight. Vital signs stable 05/18. Patient seen and examined. Sitter in place. No acute issues overnight. REVIEW OF SYSTEMS: CONSTITUTIONAL: No fever, no malaise,. CARDIOVASCULAR: No chest pain, no palpitations, no syncope. PULMONARY: No shortness of breath, no cough, GASTROINTESTINAL: No diarrhea, no nausea, no vomiting, no abdominal pain. NEUROLOGICAL: No headaches, no weakness, PHYSICAL EXAMINATION: GENERAL: The patient is alert and oriented x3, not in any acute distress. HEENT: Pupils are round and equally reacting to light. EOMI. No scleral icterus. No conjunctival pallor. Normocephalic, atraumatic. No pharyngeal erythema. No thyromegaly. CARDIOVASCULAR: S1 and S2 present. No murmurs, rubs, or gallops. PULMONARY: Chest is clear to auscultation, no wheezing or crackles. ABDOMEN: Soft, nontender, nondistended, normoactive bowel sounds. No palpable organomegaly. MUSCULOSKELETAL: No joint swelling or deformity. EXTREMITIES: No cyanosis, clubbing, or pedal edema. NEUROLOGICAL: Gross neurological examination did not reveal any focal deficits. SKIN: No rashes. Assessment and plan Acute COVID-19 infection Elevated d-dimer likely secondary to above, patient refused CT angiogram and further workup Violent outbursts in the usp, psychotic agitation Neurodevelopmental delay history History of anxiety/bipolar depression Panic disorder history Plan: Recommend to continue with current medications and management with case management following working on [facility] that will accept the patient. Patient has a legal guardian and reports is unable to return to previous AF home Continue with sitter at the bedside as patient is unable to leave AMA Psychiatry has evaluated the patient stating she does not meet inpatient criteria for [facility]. and recommending outpatient follow-up with [facility]. Psychiatry has signed off the case Case management working in attempting to discuss further discharge planning with [facility] as well as public guardian's office. Patient is medically stable and discharge pending a safe discharge plan with [facility]. Labs and medication were reviewed.. Continue same treatment. Continue with symptomatic treatment. Resume home medication. Monitor labs and vitals. DVT and GI prophylaxis. Further recommendations as per clinical course of the patient Dictation was produced using [employer] dictation software. please excuse any gram matical, word or spelling errors. Objective - Vital Signs Vital signs: Vital Signs Temp 98.2 F 05/18/23 06:52 Pulse 65 05/18/23 06:52 Resp 19 05/18/23 06:52 BP 92/58 05/18/23 06:52 Pulse Ox 100 05/18/23 06:52 FiO2 Intake & Output 05/17/23 05/18/23 05/18/23 18:59 06:59 18:59 Other: Voiding Method Toilet # Voids 4 2 # Bowel Movements 1 - Labs CBC & Chem 7: 05/08/23 07:06 05/08/23 07:06
[2023-05-18] MEDS: LITHIUM CARBONATE 300 MG CAP PO SCH (20:11)
[2023-05-18] MEDS: traZODone HCL 100 MG TAB PO SCH (20:12)
[2023-05-19] MEDS: CALCIUM CARB-VIT D 500 MG-5 MCG TAB PO SCH (09:15)
[2023-05-19] MEDS: DIVALPROEX 500 MG TABLET.DR PO SCH ×2 (09:15→19:46)
[2023-05-19] MEDS: DIVALPROEX SPRINKLE 125 MG CAP.SPRINK PO SCH ×2 (09:16→19:46)
[2023-05-19] MEDS: ZINC SULFATE 220 MG CAP PO SCH (09:16)
[2023-05-19] MEDS: OLANZapine 5 MG TAB PO SCH ×2 (09:16→19:46)
[2023-05-19] MEDS: polyethylene glycoL 3350 17 GM POWD.PACK PO SCH (09:16)
[2023-05-19] MEDS: ENOXAPARIN 40 MG/0.4 ML SYRINGE SQ SCH (09:17)
[2023-05-19] MEDS: ASCORBIC ACID 500 MG TAB PO SCH (09:17)
[2023-05-19] MEDS: DAYSEE PO SCH (09:17)
--- NOTE | 2023-05-19 19:40 | P.PN ---
Subjective Progress Note Date: 05/19/23 This is a 22-year-old female who was recently admitted with acute psychosis and was awaiting placement on [facility] and held in the ER for quite some time. Patient was tested positive for Covid after having a cough and per nursing staff was reporting having symptoms. Infectious disease following as well and not in any respiratory distress. Patient does have a sitter at the bedside and was evaluated by psychiatry and cleared the patient for discharge with outpatient follow-up with [facility]. Patient does have a guardian and case management is following working on possible AFC home that will accept the patient. Patient is not able to return to her previous AFC. Patient is afebrile with no reported chest pain or shortness of breath. No reported nausea or vomiting and patient has been tolerating diet. Per nursing staff patient can become extremely agitated at times although redirects. 05/15/2023 Patient is seen and evaluated in follow-up this morning with sitter at bedside as patient is unable to leave AMA awaiting AFC that will accept. Case management following working on follow-ups and awaiting response with [facility] following. Patient is afebrile with no reported chest pain or shortness of breath. Patient was brought to the medical floor secondary to Covid 19 infection with no hypoxic respiratory distress noted. Patient is afebrile and denies any nausea or vomiting. 05/16/2023 Patient is seen here in follow-up with sitter at the bedside as patient is unable to leave AMA as patient was initially admitted here for psychiatric evaluation. Patient has been evaluated by psychiatry and cleared for discharge recommending outpatient follow-up with continued care at [facility]. Patient unable to return to her current AFC and case management has been working with legal guardian and [facility] regarding accepting AFC's. None currently and awaiting referrals. Patient is afebrile with no reported chest pain or shortness of breath. Patient is tolerating diet and has not reported any nausea or vomiting. 05/19/2023 Patient is seen in follow-up today currently resting although arousable. Pat jefferson continues with pharmacovigilance safety expert at the bedside as patient is unable to leave AMA. Case management following continuing to work on discharge planning to and AFC that will accept her. Currently there are no accepting AFC's that can accommodate. Patient is afebrile and has not reported any chest pain or shortness of breath. Encouraged getting up more frequently and sitting up out of the bed. He Review of systems: Constitutional: No reports of fatigue, fever, or chills Cardiovascular: No reports of chest pain or palpitations Respiratory: No reports of shortness of breath or cough GI: No reports of nausea, no reports of vomiting, no diarrhea : No reports of dysuria or retention Neurovascular: No reports of generalized weakness All medications have been reviewed PHYSICAL EXAMINATION: GENERAL: The patient is alert and oriented x4, Well developed, well nourished. Agitated at times but redirectable HEENT: Pupils are round and equally reacting to light. EOMI. no scleral icterus. No conjunctival pallor. Normocephalic, atraumatic. No pharyngeal erythema. No thyromegaly. CARDIOVASCULAR: S1 and S2 muffled PULMONARY: diminished breath sounds bilaterally with no wheezing or rhonchi noted. ABDOMEN: soft. Nontender on exam. obese. non-distended, normoactive bowel sounds. No palpable organomegaly. MUSCULOSKELETAL: No joint swelling or deformity. EXTREMITIES: No cyanosis, clubbing, or pedal edema. NEUROLOGICAL: Gross neurological examination did not reveal any focal deficits. SKIN: No rashes. Assessment: Acute COVID-19 infection Elevated d-dimer likely secondary to above, patient refused CT angiogram and further workup Violent outbursts in the long term, psychotic agitation Neurodevelopmental delay history History of anxiety/bipolar depression Panic disorder history GI prophylaxis DVT prophylaxis Full code Plan: Recommend to continue with current medications and management with case management following working on AF that will accept the patient. Patient has a legal guardian and reports is unable to return to previous AF home Continue with sitter at the bedside as patient is unable to leave AMA Encouraged increased activity as tolerated Psychiatry has evaluated the patient stating she does not meet inpatient criteria for [address] [facility]. and recommending outpatient follow-up with [facility]. Psychiatry has signed off the case Encouraged medication compliance Case management working in attempting to discuss further discharge planning with [facility] as well as public guardian's office. Patient is medically stable and discharge pending a safe discharge plan with [facility]. Multiple referrals have been placed with no facility accepting at this time. Unlikely patient will discharge any time soon. Case management making management aware of the situation as patient is medically stable for discharge. Discharge is being held due to placement issues. The impression and plan of care has been dictated by Elizabeth Allan, nurse practitioner as directed. Dr. Letty MD I have performed a history and examination and MDM of this patient, discussed the same with the dictator, and agree with the dictator's assessment and plan as written ,documented as a scribe. Based on total visit time, I have performed more than 50% of the visit. Any additional findings or plans will be noted. Objective - Vital Signs Vital signs: Vital Signs Temp 99.4 F 05/19/23 07:09 Pulse 101 H 05/19/23 07:25 Resp 18 05/19/23 07:25 BP 109/70 05/19/23 07:09 Pulse Ox 95 05/19/23 07:09 FiO2 Intake & Output 05/18/23 05/19/23 05/19/23 18:59 06:59 18:59 Other: Voiding Method Toilet Toilet Toilet # Voids 2 2 1 - Labs CBC & Chem 7: 05/08/23 07:06 05/08/23 07:06
[2023-05-19] MEDS: traZODone HCL 100 MG TAB PO SCH (19:46)
[2023-05-19] MEDS: LITHIUM CARBONATE 300 MG CAP PO SCH (19:46)
[2023-05-20] MEDS: DIVALPROEX 500 MG TABLET.DR PO SCH ×2 (09:52→20:27)
[2023-05-20] MEDS: CALCIUM CARB-VIT D 500 MG-5 MCG TAB PO SCH (09:52)
[2023-05-20] MEDS: DIVALPROEX SPRINKLE 125 MG CAP.SPRINK PO SCH ×2 (09:52→20:27)
[2023-05-20] MEDS: DAYSEE PO SCH (09:53)
[2023-05-20] MEDS: OLANZapine 5 MG TAB PO SCH ×2 (09:54→20:27)
[2023-05-20] MEDS: ZINC SULFATE 220 MG CAP PO SCH (09:54)
[2023-05-20] MEDS: ENOXAPARIN 40 MG/0.4 ML SYRINGE SQ SCH ×2 (09:54→09:57)
[2023-05-20] MEDS: polyethylene glycoL 3350 17 GM POWD.PACK PO SCH ×2 (09:54→09:59)
[2023-05-20] MEDS: ASCORBIC ACID 500 MG TAB PO SCH (09:55)
[2023-05-20] MEDS: LITHIUM CARBONATE 300 MG CAP PO SCH (20:27)
[2023-05-20] MEDS: traZODone HCL 100 MG TAB PO SCH ×2 (20:27→20:37)
--- NOTE | 2023-05-21 04:16 | P.PN ---
Subjective Progress Note Date: 05/20/23 This is a 22-year-old female who was recently admitted with acute psychosis and was awaiting placement on [address] and held in the ER for quite some time. Patient was tested positive for Covid after having a cough and per nursing staff was reporting having symptoms. Infectious disease following as well and not in any respiratory distress. Patient does have a sitter at the bedside and was evaluated by psychiatry and cleared the patient for discharge with outpatient follow-up with [facility]. Patient does have a guardian and case management is following working on possible AFC home that will accept the patient. Patient is not able to return to her previous AFC. Patient is afebrile with no reported chest pain or shortness of breath. No reported nausea or vomiting and patient has been tolerating diet. Per nursing staff patient can become extremely agitated at times although redirects. 05/15/2023 Patient is seen and evaluated in follow-up this morning with sitter at bedside as patient is unable to leave AMA awaiting AFC that will accept. Case management following working on follow-ups and awaiting response with [facility] following. Patient is afebrile with no reported chest pain or shortness of breath. Patient was brought to the medical floor secondary to Covid 19 infection with no hypoxic respiratory distress noted. Patient is afebrile and denies any nausea or vomiting. 05/16/2023 Patient is seen here in follow-up with sitter at the bedside as patient is unable to leave AMA as patient was initially admitted here for psychiatric evaluation. Patient has been evaluated by psychiatry and cleared for discharge recommending outpatient follow-up with continued care at [facility]. Patient unable to return to her current AFC and case management has been working with legal guardian and [facility] regarding accepting AFC's. None currently and awaiting referrals. Patient is afebrile with no reported chest pain or shortness of breath. Patient is tolerating diet and has not reported any nausea or vomiting. 05/19/2023 Patient is seen in follow-up today currently resting although arousable. Pat jefferson continues with environmental health and safety leader at the bedside as patient is unable to leave AMA. Case management following continuing to work on discharge planning to and AFC that will accept her. Currently there are no accepting AFC's that can accommodate. Patient is afebrile and has not reported any chest pain or shortness of breath. Encouraged getting up more frequently and sitting up out of the bed. 05/20/2023 Patient is seen in follow-up today with environmental health and safety leader at the bedside as patient is unable to leave [facility] MEDICAL [facility]VICE. Patient is afebrile with no reports of chest pain or shortness of breath. Patient has been tolerating diet with no reports of nausea or vomiting. Case management continues to follow working on excepting AFC with [facility] and legal guardian. Continue with current medication regimen and patient will need outpatient follow-up with her psychiatrist regarding adjustments in medications. Review of systems: Constitutional: No reports of fatigue, fever, or chills Cardiovascular: No reports of chest pain or palpitations Respiratory: No reports of shortness of breath or cough GI: No reports of nausea, no reports of vomiting, no diarrhea : No reports of dysuria or retention Neurovascular: No reports of generalized weakness All medications have been reviewed PHYSICAL EXAMINATION: GENERAL: The patient is alert and oriented x4, Well developed, well nourished. Agitated at times but redirectable HEENT: Pupils are round and equally reacting to light. EOMI. no scleral icterus. No conjunctival pallor. Normocephalic, atraumatic. No pharyngeal erythema. No thyromegaly. CARDIOVASCULAR: S1 and S2 muffled PULMONARY: diminished breath sounds bilaterally with no wheezing or rhonchi noted. ABDOMEN: soft. Nontender on exam. obese. non-distended, normoactive bowel sounds. No palpable organomegaly. MUSCULOSKELETAL: No joint swelling or deformity. EXTREMITIES: No cyanosis, clubbing, or pedal edema. NEUROLOGICAL: Gross neurological examination did not reveal any focal deficits. SKIN: No rashes. Assessment: Acute COVID-19 infection Elevated d-dimer likely secondary to above, patient refused CT angiogram and further workup Violent outbursts in the usp, psychotic agitation Neurodevelopmental delay history History of anxiety/bipolar depression Panic disorder history GI prophylaxis DVT prophylaxis Full code Plan: Recommend to continue with current medications and management with case management following working on AFC that will accept the patient. Patient has a legal guardian and reports is unable to return to previous AFC home. Case management working with [facility] and legal guardian regarding AFC. Discussed further with psychiatry as outpatient psychiatrist Dr. Cid was discussing starting Clozaril and requesting to speak psychiatrist to psychiatrist regarding treatment plan and medications. Patient to continue on current medication regimen at this time. Continue with sitter at the bedside as patient is unable to leave AMA Encouraged increased activity as tolerated Encouraged medication compliance. Patient has been cooperative and compliant with medications thus far. Case management working in attempting to discuss further discharge planning with [facility] as well as public guardian's office. Patient is medically stable and discharge pending a safe discharge plan with [facility]. Multiple referrals have been placed with no facility accepting at this time. Unlikely patient will discharge any time soon. Case management making management aware of the situation as patient is medically stable for discharge. Discharge is being held due to placement issues. The impression and plan of care has been dictated by Elizabeth Allan, nurse practitioner as directed. Dr. Letty MD I have performed a history and examination and MDM of this patient, discussed the same with the dictator, and agree with the dictator's assessment and plan as written ,documented as a scribe. Based on total visit time, I have performed more than 50% of the visit. Any additional findings or plans will be noted. Objective - Vital Signs Vital signs: Vital Signs Temp 98.1 F 05/20/23 06:59 Pulse 62 05/20/23 06:59 Resp 18 05/20/23 06:59 BP 96/65 05/20/23 06:59 Pulse Ox 97 05/20/23 06:59 FiO2 Intake & Output 05/19/23 05/20/23 05/20/23 18:59 06:59 18:59 Other: Voiding Method Toilet Toilet Toilet # Voids 4 2 # Bowel Movements 1 - Labs CBC & Chem 7: 05/08/23 07:06 05/08/23 07:06
[2023-05-21] MEDS: ASCORBIC ACID 500 MG TAB PO SCH (08:02)
[2023-05-21] MEDS: ZINC SULFATE 220 MG CAP PO SCH (08:02)
[2023-05-21] MEDS: DIVALPROEX 500 MG TABLET.DR PO SCH ×2 (08:02→20:16)
[2023-05-21] MEDS: CALCIUM CARB-VIT D 500 MG-5 MCG TAB PO SCH (08:02)
[2023-05-21] MEDS: OLANZapine 5 MG TAB PO SCH ×2 (08:02→20:16)
[2023-05-21] MEDS: DIVALPROEX SPRINKLE 125 MG CAP.SPRINK PO SCH ×2 (08:02→20:16)
[2023-05-21] MEDS: DAYSEE PO SCH (08:03)
[2023-05-21] MEDS: ENOXAPARIN 40 MG/0.4 ML SYRINGE SQ SCH (08:03)
[2023-05-21] MEDS: polyethylene glycoL 3350 17 GM POWD.PACK PO SCH (08:07)
[2023-05-21] MEDS: LITHIUM CARBONATE 300 MG CAP PO SCH (20:16)
[2023-05-21] MEDS: traZODone HCL 100 MG TAB PO SCH (20:16)
--- NOTE | 2023-05-22 04:59 | P.PN ---
Subjective Progress Note Date: 05/21/23 This is a 22-year-old female who was recently admitted with acute psychosis and was awaiting placement on [address] and held in the ER for quite some time. Patient was tested positive for Covid after having a cough and per nursing staff was reporting having symptoms. Infectious disease following as well and not in any respiratory distress. Patient does have a sitter at the bedside and was evaluated by psychiatry and cleared the patient for discharge with outpatient follow-up with [facility]. Patient does have a guardian and case management is following working on possible AFC home that will accept the patient. Patient is not able to return to her previous AFC. Patient is afebrile with no reported chest pain or shortness of breath. No reported nausea or vomiting and patient has been tolerating diet. Per nursing staff patient can become extremely agitated at times although redirects. 05/15/2023 Patient is seen and evaluated in follow-up this morning with sitter at bedside as patient is unable to leave AMA awaiting AFC that will accept. Case management following working on follow-ups and awaiting response with [facility] following. Patient is afebrile with no reported chest pain or shortness of breath. Patient was brought to the medical floor secondary to Covid 19 infection with no hypoxic respiratory distress noted. Patient is afebrile and denies any nausea or vomiting. 05/16/2023 Patient is seen here in follow-up with sitter at the bedside as patient is unable to leave AMA as patient was initially admitted here for psychiatric evaluation. Patient has been evaluated by psychiatry and cleared for discharge recommending outpatient follow-up with continued care at [facility]. Patient unable to return to her current AFC and case management has been working with legal guardian and [facility] regarding accepting AFC's. None currently and awaiting referrals. Patient is afebrile with no reported chest pain or shortness of breath. Patient is tolerating diet and has not reported any nausea or vomiting. 05/19/2023 Patient is seen in follow-up today currently resting although arousable. Pat jefferson continues with safety leader at the bedside as patient is unable to leave AMA. Case management following continuing to work on discharge planning to and AFC that will accept her. Currently there are no accepting AFC's that can accommodate. Patient is afebrile and has not reported any chest pain or shortness of breath. Encouraged getting up more frequently and sitting up out of the bed. 05/20/2023 Patient is seen in follow-up today with safety leader at the bedside as patient is unable to leave AGAINST MEDICAL ADVICE. Patient is afebrile with no reports of chest pain or shortness of breath. Patient has been tolerating diet with no reports of nausea or vomiting. Case management continues to follow working on excepting AFC with [facility] and legal guardian. Continue with current medication regimen and patient will need outpatient follow-up with her psychiatrist regarding adjustments in medications. 05/21/2023 Patient is seen in follow-up this morning with no acute overnight issues noted. Case management following and working on discharge planning. There is a Zoom meeting later today with guardian as there may be possible AFC's that are willing to review for admission. Patient is afebrile with no reported chest pain or shortness of breath. Patient is tolerating diet. Encouraged to increase activity as tolerated. Review of systems: Constitutional: No reports of fatigue, fever, or chills Cardiovascular: No reports of chest pain or palpitations Respiratory: No reports of shortness of breath or cough GI: No reports of nausea, no reports of vomiting, no diarrhea : No reports of dysuria or retention Neurovascular: No reports of generalized weakness All medications have been reviewed PHYSICAL EXAMINATION: GENERAL: The patient is alert and oriented x4, Well developed, well nourished. HEENT: Pupils are round and equally reacting to light. EOMI. no scleral icterus. No conjunctival pallor. Normocephalic, atraumatic. No pharyngeal erythema. No thyromegaly. CARDIOVASCULAR: S1 and S2 muffled PULMONARY: diminished breath sounds bilaterally with no wheezing or rhonchi noted. ABDOMEN: soft. Nontender on exam. obese. non-distended, normoactive bowel sounds. No palpable organomegaly. MUSCULOSKELETAL: No joint swelling or deformity. EXTREMITIES: No cyanosis, clubbing, or pedal edema. NEUROLOGICAL: Gross neurological examination did not reveal any focal deficits. SKIN: No rashes. Assessment: Acute COVID-19 infection Elevated d-dimer likely secondary to above, patient refused CT angiogram and further workup Violent outbursts in the care home, psychotic agitation Neurodevelopmental delay history History of anxiety/bipolar depression Panic disorder history GI prophylaxis DVT prophylaxis Full code Plan: Recommend to continue with current medications and management with case management following working on AFC that will accept the patient. Patient has a legal guardian and reports is unable to return to previous AFC home. Case manag ement working with [facility] and legal guardian regarding AFC. There is a Zoom meeting later today regarding a couple AFC's that are looking into reviewing the case. Discussed further with psychiatry as outpatient psychiatrist Dr. Cid was discussing starting Clozaril and requesting to speak psychiatrist to psychiatrist regarding treatment plan and medications. Patient to continue on current medication regimen at this time. Continue with sitter at the bedside as patient is unable to leave AMA Encouraged increased activity as tolerated Encouraged medication compliance. Patient has been cooperative and compliant with medications thus far. Case management working in attempting to discuss further discharge planning with [facility] as well as public guardian's office. Patient is medically stable and d ischarge pending a safe discharge plan with AFC. Unlikely patient will discharge any time soon. Discharge is being held due to placement issues. The impression and plan of care has been dictated by Elizabeth Allan, nurse practitioner as directed. Dr. Letty MD I have performed a history and examination and MDM of this patient, discussed the same with the dictator, and agree with the dictator's assessment and plan as written ,documented as a scribe. Based on total visit time, I have performed more than 50% of the visit. Any additional findings or plans will be noted. Objective - Vital Signs Vital signs: Vital Signs Temp 97.5 F L 05/22/23 02:15 Pulse 68 05/22/23 02:15 Resp 16 05/22/23 02:15 BP 105/57 05/22/23 02:15 Pulse Ox 96 05/22/23 02:15 FiO2 Intake & Output 05/21/23 05/21/23 05/22/23 06:59 18:59 06:59 Other: Voiding Method Toilet Toilet # Voids 1 4 - Labs CBC & Chem 7: 05/08/23 07:06 05/08/23 07:06
[2023-05-22] MEDS: DIVALPROEX SPRINKLE 125 MG CAP.SPRINK PO SCH ×2 (07:46→20:31)
[2023-05-22] MEDS: OLANZapine 5 MG TAB PO SCH ×2 (07:46→20:30)
[2023-05-22] MEDS: ZINC SULFATE 220 MG CAP PO SCH (07:46)
[2023-05-22] MEDS: ENOXAPARIN 40 MG/0.4 ML SYRINGE SQ SCH (07:47)
[2023-05-22] MEDS: CALCIUM CARB-VIT D 500 MG-5 MCG TAB PO SCH (07:47)
[2023-05-22] MEDS: DAYSEE PO SCH (07:47)
[2023-05-22] MEDS: ASCORBIC ACID 500 MG TAB PO SCH (07:47)
[2023-05-22] MEDS: polyethylene glycoL 3350 17 GM POWD.PACK PO SCH (07:47)
[2023-05-22] MEDS: DIVALPROEX 500 MG TABLET.DR PO SCH ×2 (07:47→20:30)
--- NOTE | 2023-05-22 14:14 | P.PN ---
Subjective Progress Note Date: 05/22/23 This is a 22-year-old female who was recently admitted with acute psychosis and was awaiting placement on [address] and held in the ER for quite some time. Patient was tested positive for Covid after having a cough and per nursing staff was reporting having symptoms. Infectious disease following as well and not in any respiratory distress. Patient does have a sitter at the bedside and was evaluated by psychiatry and cleared the patient for discharge with outpatient follow-up with [facility]. Patient does have a guardian and case management is following working on possible AFC home that will accept the patient. Patient is not able to return to her previous AFC. Patient is afebrile with no reported chest pain or shortness of breath. No reported nausea or vomiting and patient has been tolerating diet. Per nursing staff patient can become extremely agitated at times although redirects. 05/15/2023 Patient is seen and evaluated in follow-up this morning with sitter at bedside as patient is unable to leave AMA awaiting AFC that will accept. Case management following working on follow-ups and awaiting response with [facility] following. Patient is afebrile with no reported chest pain or shortness of breath. Patient was brought to the medical floor secondary to Covid 19 infection with no hypoxic respiratory distress noted. Patient is afebrile and denies any nausea or vomiting. 05/16/2023 Patient is seen here in follow-up with sitter at the bedside as patient is unable to leave AMA as patient was initially admitted here for psychiatric evaluation. Patient has been evaluated by psychiatry and cleared for discharge recommending outpatient follow-up with continued care at [facility]. Patient unable to return to her current AFC and case management has been working with legal guardian and [facility] regarding accepting AFC's. None currently and awaiting referrals. Patient is afebrile with no reported chest pain or shortness of breath. Patient is tolerating diet and has not reported any nausea or vomiting. 05/19/2023 Patient is seen in follow-up today currently resting although arousable. Pat jefferson continues with aviation safety equipment technician at the bedside as patient is unable to leave AMA. Case management following continuing to work on discharge planning to and AFC that will accept her. Currently there are no accepting AFC's that can accommodate. Patient is afebrile and has not reported any chest pain or shortness of breath. Encouraged getting up more frequently and sitting up out of the bed. 05/20/2023 Patient is seen in follow-up today with aviation safety equipment technician at the bedside as patient is unable to leave AGAINST MEDICAL ADVICE. Patient is afebrile with no reports of chest pain or shortness of breath. Patient has been tolerating diet with no reports of nausea or vomiting. Case management continues to follow working on excepting AF with [facility] and legal guardian. Continue with current medication regimen and patient will need outpatient follow-up with her psychiatrist regarding adjustments in medications. 05/21/2023 Patient is seen in follow-up this morning with no acute overnight issues noted. Case management following and working on discharge planning. There is a Zoom meeting later today with guardian as there may be possible AF's that are willing to review for admission. Patient is afebrile with no reported chest pain or shortness of breath. Patient is tolerating diet. Encouraged to increase activity as tolerated. 05/22/2023 Patient is seen in follow-up today continues with sitter at the bedside as patient is unable to leave AMA. Patient has been accepted at [facility] and there will be a bed available on 05/23/2023. Case management following making arrangements for discharge planning and will have discharge and probable 24 hours. Patient is afebrile with no reported chest pain or shortness of breath. Patient is tolerating diet with no reported nausea or vomiting. Patient has been up and walking with no difficulties or gait dysfunction. Patient is medically stable for discharge and will discharge on 05/23/2023. Review of systems: Constitutional: No reports of fatigue, fever, or chills Cardiovascular: No reports of chest pain or palpitations Respiratory: No reports of shortness of breath or cough GI: No reports of nausea, no reports of vomiting, no diarrhea : No reports of dysuria or retention Neurovascular: No reports of generalized weakness All medications have been reviewed PHYSICAL EXAMINATION: GENERAL: The patient is alert and oriented x4, Well developed, well nourished. HEENT: Pupils are round and equally reacting to light. EOMI. no scleral icterus. No conjunctival pallor. Normocephalic, atraumatic. No pharyngeal erythema. No thyromegaly. CARDIOVASCULAR: S1 and S2 muffled PULMONARY: diminished breath sounds bilaterally with no wheezing or rhonchi noted. ABDOMEN: soft. Nontender on exam. obese. non-distended, normoactive bowel sounds. No palpable organomegaly. MUSCULOSKELETAL: No joint swelling or deformity. EXTREMITIES: No cyanosis, clubbing, or pedal edema. NEUROLOGICAL: Gross neurological examination did not reveal any focal deficits. SKIN: No rashes. Assessment: Acute COVID-19 infection Elevated d-dimer likely secondary to above, patient refused CT angiogram and further workup Violent outbursts in the skilled nursing, psychotic agitation Neurodevelopmental delay history History of anxiety/bipolar depression Panic disorder history GI prophylaxis DVT prophylaxis Full code Plan: Recommend to continue with current medications and management with case management following working on [facility] that will accept the patient. Patient has been accepted by [facility] and there will be a bed available on 05/23/2023. Discharge planning in process including medication reconciliation and patient will require 30-day supply of medications. Patient to follow-up with [facility] outpatient and continue with psychiatric care in the outpatient setting. Continue with sitter at the bedside as patient is unable to leave AMA Encouraged increased activity as tolerated Encouraged medication compliance. Patient has been cooperative and compliant with medications thus far. Discharge planning in process for 05/23/2023 to [facility]. The impression and plan of care has been dictated by Elizabeth Allan, nurse practitioner as directed. Dr. Chloé MD I have performed a history and examination and MDM of this patient, discussed the same with the dictator, and agree with the dictator's assessment and plan as written ,documented as a scribe. Based on total visit time, I have performed more than 50% of the visit. Any additional findings or plans will be noted. Objective - Vital Signs Vital signs: Vital Signs Temp 98.3 F 05/22/23 07:51 Pulse 66 05/22/23 07:51 Resp 19 05/22/23 07:51 BP 105/58 05/22/23 07:51 Pulse Ox 98 05/22/23 07:51 FiO2 Intake & Output 05/21/23 05/22/23 05/22/23 18:59 06:59 18:59 Intake Total 200 Balance 200 Intake: Oral 200 Other: Voiding Method Toilet # Voids 4 5 - Labs CBC & Chem 7: 05/08/23 07:06 05/08/23 07:06
[2023-05-22] MEDS: traZODone HCL 100 MG TAB PO SCH (20:30)
[2023-05-22] MEDS: LITHIUM CARBONATE 300 MG CAP PO SCH (20:30)
[2023-05-23] MEDS: ENOXAPARIN 40 MG/0.4 ML SYRINGE SQ SCH (07:27)
[2023-05-23] MEDS: polyethylene glycoL 3350 17 GM POWD.PACK PO SCH (07:27)
[2023-05-23] MEDS: DIVALPROEX 500 MG TABLET.DR PO SCH ×2 (07:31→20:02)
[2023-05-23] MEDS: ASCORBIC ACID 500 MG TAB PO SCH (07:31)
[2023-05-23] MEDS: CALCIUM CARB-VIT D 500 MG-5 MCG TAB PO SCH (07:31)
[2023-05-23] MEDS: DIVALPROEX SPRINKLE 125 MG CAP.SPRINK PO SCH ×2 (07:32→20:02)
[2023-05-23] MEDS: OLANZapine 5 MG TAB PO SCH ×2 (07:32→20:02)
[2023-05-23] MEDS: ZINC SULFATE 220 MG CAP PO SCH (07:32)
[2023-05-23] MEDS: DAYSEE PO SCH (07:33)
[2023-05-23] MEDS: traZODone HCL 100 MG TAB PO SCH (20:02)
[2023-05-23] MEDS: LITHIUM CARBONATE 300 MG CAP PO SCH (20:02)
--- NOTE | 2023-05-24 03:18 | P.PN ---
Subjective Progress Note Date: 05/23/23 This is a 22-year-old female who was recently admitted with acute psychosis and was awaiting placement on [address] and held in the ER for quite some time. Patient was tested positive for Covid after having a cough and per nursing staff was reporting having symptoms. Infectious disease following as well and not in any respiratory distress. Patient does have a sitter at the bedside and was evaluated by psychiatry and cleared the patient for discharge with outpatient follow-up with [facility]. Patient does have a guardian and case management is following working on possible AFC home that will accept the patient. Patient is not able to return to her previous AFC. Patient is afebrile with no reported chest pain or shortness of breath. No reported nausea or vomiting and patient has been tolerating diet. Per nursing staff patient can become extremely agitated at times although redirects. 05/15/2023 Patient is seen and evaluated in follow-up this morning with sitter at bedside as patient is unable to leave AMA awaiting AFC that will accept. Case management following working on follow-ups and awaiting response with [facility] following. Patient is afebrile with no reported chest pain or shortness of breath. Patient was brought to the medical floor secondary to Covid 19 infection with no hypoxic respiratory distress noted. Patient is afebrile and denies any nausea or vomiting. 05/16/2023 Patient is seen here in follow-up with sitter at the bedside as patient is unable to leave AMA as patient was initially admitted here for psychiatric evaluation. Patient has been evaluated by psychiatry and cleared for discharge recommending outpatient follow-up with continued care at [facility]. Patient unable to return to her current AFC and case management has been working with legal guardian and [facility] regarding accepting AFC's. None currently and awaiting referrals. Patient is afebrile with no reported chest pain or shortness of breath. Patient is tolerating diet and has not reported any nausea or vomiting. 05/19/2023 Patient is seen in follow-up today currently resting although arousable. Pat jefferson continues with public safety telecommunicator at the bedside as patient is unable to leave AMA. Case management following continuing to work on discharge planning to and AFC that will accept her. Currently there are no accepting AFC's that can accommodate. Patient is afebrile and has not reported any chest pain or shortness of breath. Encouraged getting up more frequently and sitting up out of the bed. 05/20/2023 Patient is seen in follow-up today with public safety telecommunicator at the bedside as patient is unable to leave AGAINST MEDICAL ADVICE. Patient is afebrile with no reports of chest pain or shortness of breath. Patient has been tolerating diet with no reports of nausea or vomiting. Case management continues to follow working on excepting AF with [facility] and legal guardian. Continue with current medication regimen and patient will need outpatient follow-up with her psychiatrist regarding adjustments in medications. 05/21/2023 Patient is seen in follow-up this morning with no acute overnight issues noted. Case management following and working on discharge planning. There is a Zoom meeting later today with guardian as there may be possible [facility]'s that are willing to review for admission. Patient is afebrile with no reported chest pain or shortness of breath. Patient is tolerating diet. Encouraged to increase activity as tolerated. 05/22/2023 Patient is seen in follow-up today continues with sitter at the bedside as patient is unable to leave AMA. Patient has been accepted at [facility] and there will be a bed available on 05/23/2023. Case management following making arrangements for discharge planning and will have discharge and probable 24 hours. Patient is afebrile with no reported chest pain or shortness of breath. Patient is tolerating diet with no reported nausea or vomiting. Patient has been up and walking with no difficulties or gait dysfunction. Patient is medically stable for discharge and will discharge on 05/23/2023. 05/23/2023 Patient was scheduled for discharge today although per case management [facility] unable to accept the patient until Friday. Patient is currently afebrile with no reported chest pain or shortness of breath. Patient is tolerating diet and denies any nausea or vomiting. Patient to follow-up with psychiatry in the outpatient setting. Patient will continue current medication regimen. Patient reported she did not want to go to an [facility] home. Patient does have a legal guardian and follows with [facility] and is unable to leave AMA. Case management following and will follow-up on Friday with possible discharge planning. Review of systems: Constitutional: No reports of fatigue, fever, or chills Cardiovascular: No reports of chest pain or palpitations Respiratory: No reports of shortness of breath or cough GI: No reports of nausea, no reports of vomiting, no diarrhea : No reports of dysuria or retention Neurovascular: No reports of generalized weakness All medications have been reviewed PHYSICAL EXAMINATION: GENERAL: The patient is alert and oriented x4, Well developed, well nourished. HEENT: Pupils are round and equally reacting to light. EOMI. no scleral icterus. No conjunctival pallor. Normocephalic, atraumatic. No pharyngeal erythema. No thyromegaly. CARDIOVASCULAR: S1 and S2 muffled PULMONARY: diminished breath sounds bilaterally with no wheezing or rhonchi noted. ABDOMEN: soft. Nontender on exam. obese. non-distended, normoactive bowel sounds. No palpable organomegaly. MUSCULOSKELETAL: No joint swelling or deformity. EXTREMITIES: No cyanosis, clubbing, or pedal edema. NEUROLOGICAL: Gross neurological examination did not reveal any focal deficits. SKIN: No rashes. Assessment: Acute COVID-19 infection Elevated d-dimer likely secondary to above, patient refused CT angiogram and further workup Violent outbursts in the long term, psychotic agitation Neurodevelopmental delay history History of anxiety/bipolar depression Panic disorder history GI prophylaxis DVT prophylaxis Full code Plan: Recommend to continue with current medications and management with case management following working on [facility] that will accept the patient. Patient has been accepted by [facility] and was scheduled for discharge today although per [facility], unable to accept the patient until Friday. Discharge planning in process including medication reconciliation and patient will require 30-day sup ply of medications. Patient to follow-up with [facility] outpatient and continue with psychiatric care in the outpatient setting. Continue with sitter at the bedside as patient is unable to leave AMA Encouraged increased activity as tolerated Encouraged medication compliance. Patient has been cooperative and compliant with medications thus far. Discharge planning in process tentatively 05/26/2023 to [facility]. The impression and plan of care has been dictated by Elizabeth Allan, nurse practitioner as directed. Dr. Chloé MD I have performed a history and examination and MDM of this patient, discussed the same with the dictator, and agree with the dictator's assessment and plan as written ,documented as a scribe. Based on total visit time, I have performed more than 50% of the visit. Any additional findings or plans will be noted. Objective - Vital Signs Vital signs: Vital Signs Temp 98.2 F 05/24/23 01:01 Pulse 76 05/24/23 01:01 Resp 18 05/24/23 01:01 BP 103/68 05/24/23 01:01 Pulse Ox 96 05/24/23 01:01 FiO2 Intake & Output 05/23/23 05/23/23 05/24/23 06:59 18:59 06:59 Intake Total 950 Balance 950 Intake: Oral 950 Other: Voiding Method Toilet # Voids 5 1 - Labs CBC & Chem 7: 05/08/23 07:06 05/08/23 07:06
[2023-05-24] MEDS: ASCORBIC ACID 500 MG TAB PO SCH (08:18)
[2023-05-24] MEDS: ENOXAPARIN 40 MG/0.4 ML SYRINGE SQ SCH ×2 (08:19→08:26)
[2023-05-24] MEDS: polyethylene glycoL 3350 17 GM POWD.PACK PO SCH (08:19)
[2023-05-24] MEDS: PATIENTS OWN MED PO PRN (08:19)
[2023-05-24] MEDS: ZINC SULFATE 220 MG CAP PO SCH (08:19)
[2023-05-24] MEDS: DAYSEE PO SCH (08:19)
[2023-05-24] MEDS: CALCIUM CARB-VIT D 500 MG-5 MCG TAB PO SCH (08:19)
[2023-05-24] MEDS: DIVALPROEX 500 MG TABLET.DR PO SCH ×2 (08:19→21:08)
[2023-05-24] MEDS: DIVALPROEX SPRINKLE 125 MG CAP.SPRINK PO SCH ×2 (08:20→21:08)
[2023-05-24] MEDS: OLANZapine 5 MG TAB PO SCH ×2 (08:21→21:08)
--- NOTE | 2023-05-24 21:02 | P.PN ---
Subjective Progress Note Date: 05/24/23 This is a 22-year-old female who was recently admitted with acute psychosis and was awaiting placement on [address] and held in the ER for quite some time. Patient was tested positive for Covid after having a cough and per nursing staff was reporting having symptoms. Infectious disease following as well and not in any respiratory distress. Patient does have a sitter at the bedside and was evaluated by psychiatry and cleared the patient for discharge with outpatient follow-up with [facility]. Patient does have a guardian and case management is following working on possible AFC home that will accept the patient. Patient is not able to return to her previous AFC. Patient is afebrile with no reported chest pain or shortness of breath. No reported nausea or vomiting and patient has been tolerating diet. Per nursing staff patient can become extremely agitated at times although redirects. 05/15/2023 Patient is seen and evaluated in follow-up this morning with sitter at bedside as patient is unable to leave AMA awaiting AFC that will accept. Case management following working on follow-ups and awaiting response with [facility] following. Patient is afebrile with no reported chest pain or shortness of breath. Patient was brought to the medical floor secondary to Covid 19 infection with no hypoxic respiratory distress noted. Patient is afebrile and denies any nausea or vomiting. 05/16/2023 Patient is seen here in follow-up with sitter at the bedside as patient is unable to leave AMA as patient was initially admitted here for psychiatric evaluation. Patient has been evaluated by psychiatry and cleared for discharge recommending outpatient follow-up with continued care at [facility]. Patient unable to return to her current AFC and case management has been working with legal guardian and [facility] regarding accepting AFC's. None currently and awaiting referrals. Patient is afebrile with no reported chest pain or shortness of breath. Patient is tolerating diet and has not reported any nausea or vomiting. 05/19/2023 Patient is seen in follow-up today currently resting although arousable. Pat jefferson continues with mine safety engineer at the bedside as patient is unable to leave AMA. Case management following continuing to work on discharge planning to and AFC that will accept her. Currently there are no accepting AFC's that can accommodate. Patient is afebrile and has not reported any chest pain or shortness of breath. Encouraged getting up more frequently and sitting up out of the bed. 05/20/2023 Patient is seen in follow-up today with mine safety engineer at the bedside as patient is unable to leave AGAINST MEDICAL ADVICE. Patient is afebrile with no reports of chest pain or shortness of breath. Patient has been tolerating diet with no reports of nausea or vomiting. Case management continues to follow working on excepting AF with [facility] and legal guardian. Continue with current medication regimen and patient will need outpatient follow-up with her psychiatrist regarding adjustments in medications. 05/21/2023 Patient is seen in follow-up this morning with no acute overnight issues noted. Case management following and working on discharge planning. There is a Zoom meeting later today with guardian as there may be possible [facility]'s that are willing to review for admission. Patient is afebrile with no reported chest pain or shortness of breath. Patient is tolerating diet. Encouraged to increase activity as tolerated. 05/22/2023 Patient is seen in follow-up today continues with sitter at the bedside as patient is unable to leave AMA. Patient has been accepted at [facility] and there will be a bed available on 05/23/2023. Case management following making arrangements for discharge planning and will have discharge and probable 24 hours. Patient is afebrile with no reported chest pain or shortness of breath. Patient is tolerating diet with no reported nausea or vomiting. Patient has been up and walking with no difficulties or gait dysfunction. Patient is medically stable for discharge and will discharge on 05/23/2023. 05/23/2023 Patient was scheduled for discharge today although per case management [facility] unable to accept the patient until Friday. Patient is currently afebrile with no reported chest pain or shortness of breath. Patient is tolerating diet and denies any nausea or vomiting. Patient to follow-up with psychiatry in the outpatient setting. Patient will continue current medication regimen. Patient reported she did not want to go to an [facility] home. Patient does have a legal guardian and follows with [facility] and is unable to leave AMA. Case management following and will follow-up on Friday with possible discharge planning. 05/24/2023 Patient is seen in follow-up with no acute overnight issues noted. Patient is afebrile and denies any chest pain or shortness of breath. Patient is tolerating diet with no reported nausea or vomiting. Patient is medically stable and awaiting AF with possible discharge on Friday. Will follow-up with case management Friday to coordinate discharge planning to [facility]. Review of systems: Constitutional: No reports of fatigue, fever, or chills Cardiovascular: No reports of chest pain or palpitations Respiratory: No reports of shortness of breath or cough GI: No reports of nausea, no reports of vomiting, no diarrhea : No reports of dysuria or retention Neurovascular: No reports of generalized weakness All medications have been reviewed PHYSICAL EXAMINATION: GENERAL: The patient is alert and oriented x4, Well developed, well nourished. HEENT: Pupils are round and equally reacting to light. EOMI. no scleral icterus. No conjunctival pallor. Normocephalic, atraumatic. No pharyngeal erythema. No thyromegaly. CARDIOVASCULAR: S1 and S2 muffled PULMONARY: diminished breath sounds bilaterally with no wheezing or rhonchi noted. ABDOMEN: soft. Nontender on exam. obese. non-distended, normoactive bowel sounds. No palpable organomegaly. MUSCULOSKELETAL: No joint swelling or deformity. EXTREMITIES: No cyanosis, clubbing, or pedal edema. NEUROLOGICAL: Gross neurological examination did not reveal any focal deficits. SKIN: No rashes. Assessment: Acute COVID-19 infection Elevated d-dimer likely secondary to above, patient refused CT angiogram and further workup Violent outbursts in the skilled nursing, psychotic agitation Neurodevelopmental delay history History of anxiety/bipolar depression Panic disorder history GI prophylaxis DVT prophylaxis Full code Plan: Recommend to continue with current medications and management with case management following working on discharge. Patient has been accepted by [facility] and was scheduled for discharge Friday although per [facility], unable to accept the patient until Friday. Discharge planning in process including medication reconciliation and patient will require 30-day supply of medications. Patient to follow-up with [facility] outpatient and continue with psychiatric care in the outpatient setting. Continue with sitter at the bedside as patient is unable to leave AMA Encouraged increased activity as tolerated Encouraged medication compliance. Patient has been cooperative and compliant with medications thus far. Discharge planning in process tentatively 05/26/2023 to [facility]. The impression and plan of care has been dictated by Elizabeth Allan, nurse practitioner as directed. Dr. Chloé MD I have performed a history and examination and MDM of this patient, discussed the same with the dictator, and agree with the dictator's assessment and plan as written ,documented as a scribe. Based on total visit time, I have performed more than 50% of the visit. Any additional findings or plans will be noted. Objective - Vital Signs Vital signs: Vital Signs Temp 98.3 F 05/24/23 19:55 Pulse 69 05/24/23 19:55 Resp 18 05/24/23 19:55 BP 90/56 05/24/23 19:55 Pulse Ox 97 05/24/23 19:55 FiO2 Intake & Output 05/24/23 05/24/23 05/25/23 06:59 18:59 06:59 Other: Voiding Method Toilet Toilet Diaper # Voids 1 5 # Bowel Movements 1 - Labs CBC & Chem 7: 05/08/23 07:06 05/08/23 07:06
[2023-05-24] MEDS: LITHIUM CARBONATE 300 MG CAP PO SCH (21:08)
[2023-05-24] MEDS: traZODone HCL 100 MG TAB PO SCH (21:08)
[2023-05-25] MEDS: DIVALPROEX 500 MG TABLET.DR PO SCH ×2 (09:50→20:38)
[2023-05-25] MEDS: DAYSEE PO SCH (09:50)
[2023-05-25] MEDS: PATIENTS OWN MED PO PRN (09:50)
[2023-05-25] MEDS: ASCORBIC ACID 500 MG TAB PO SCH (09:50)
[2023-05-25] MEDS: CALCIUM CARB-VIT D 500 MG-5 MCG TAB PO SCH (09:50)
[2023-05-25] MEDS: polyethylene glycoL 3350 17 GM POWD.PACK PO SCH (09:50)
[2023-05-25] MEDS: ENOXAPARIN 40 MG/0.4 ML SYRINGE SQ SCH (09:50)
[2023-05-25] MEDS: ZINC SULFATE 220 MG CAP PO SCH (09:50)
[2023-05-25] MEDS: DIVALPROEX SPRINKLE 125 MG CAP.SPRINK PO SCH ×2 (09:51→20:38)
[2023-05-25] MEDS: OLANZapine 5 MG TAB PO SCH ×2 (09:51→20:38)
[2023-05-25] MEDS: traZODone HCL 100 MG TAB PO SCH (20:38)
[2023-05-25] MEDS: LITHIUM CARBONATE 300 MG CAP PO SCH (20:38)
--- NOTE | 2023-05-26 06:34 | P.PN ---
Subjective Progress Note Date: 05/25/23 This is a 22-year-old female who was recently admitted with acute psychosis and was awaiting placement on [address] and held in the ER for quite some time. Patient was tested positive for Covid after having a cough and per nursing staff was reporting having symptoms. Infectious disease following as well and not in any respiratory distress. Patient does have a sitter at the bedside and was evaluated by psychiatry and cleared the patient for discharge with outpatient follow-up with [facility]. Patient does have a guardian and case management is following working on possible AFC home that will accept the patient. Patient is not able to return to her previous AFC. Patient is afebrile with no reported chest pain or shortness of breath. No reported nausea or vomiting and patient has been tolerating diet. Per nursing staff patient can become extremely agitated at times although redirects. 05/15/2023 Patient is seen and evaluated in follow-up this morning with sitter at bedside as patient is unable to leave AMA awaiting AFC that will accept. Case management following working on follow-ups and awaiting response with [facility] following. Patient is afebrile with no reported chest pain or shortness of breath. Patient was brought to the medical floor secondary to Covid 19 infection with no hypoxic respiratory distress noted. Patient is afebrile and denies any nausea or vomiting. 05/16/2023 Patient is seen here in follow-up with sitter at the bedside as patient is unable to leave AMA as patient was initially admitted here for psychiatric evaluation. Patient has been evaluated by psychiatry and cleared for discharge recommending outpatient follow-up with continued care at [facility]. Patient unable to return to her current AFC and case management has been working with legal guardian and [facility] regarding accepting AFC's. None currently and awaiting referrals. Patient is afebrile with no reported chest pain or shortness of breath. Patient is tolerating diet and has not reported any nausea or vomiting. 05/19/2023 Patient is seen in follow-up today currently resting although arousable. Pat jefferson continues with global safety officer at the bedside as patient is unable to leave AMA. Case management following continuing to work on discharge planning to and AFC that will accept her. Currently there are no accepting AFC's that can accommodate. Patient is afebrile and has not reported any chest pain or shortness of breath. Encouraged getting up more frequently and sitting up out of the bed. 05/20/2023 Patient is seen in follow-up today with global safety officer at the bedside as patient is unable to leave AGAINST MEDICAL ADVICE. Patient is afebrile with no reports of chest pain or shortness of breath. Patient has been tolerating diet with no reports of nausea or vomiting. Case management continues to follow working on excepting AF with [facility] and legal guardian. Continue with current medication regimen and patient will need outpatient follow-up with her psychiatrist regarding adjustments in medications. 05/21/2023 Patient is seen in follow-up this morning with no acute overnight issues noted. Case management following and working on discharge planning. There is a Zoom meeting later today with guardian as there may be possible [facility]'s that are willing to review for admission. Patient is afebrile with no reported chest pain or shortness of breath. Patient is tolerating diet. Encouraged to increase activity as tolerated. 05/22/2023 Patient is seen in follow-up today continues with sitter at the bedside as patient is unable to leave AMA. Patient has been accepted at [facility] and there will be a bed available on 05/23/2023. Case management following making arrangements for discharge planning and will have discharge and probable 24 hours. Patient is afebrile with no reported chest pain or shortness of breath. Patient is tolerating diet with no reported nausea or vomiting. Patient has been up and walking with no difficulties or gait dysfunction. Patient is medically stable for discharge and will discharge on 05/23/2023. 05/23/2023 Patient was scheduled for discharge today although per case management [facility] unable to accept the patient until Friday. Patient is currently afebrile with no reported chest pain or shortness of breath. Patient is tolerating diet and denies any nausea or vomiting. Patient to follow-up with psychiatry in the outpatient setting. Patient will continue current medication regimen. Patient reported she did not want to go to an [facility] home. Patient does have a legal guardian and follows with [facility] and is unable to leave AMA. Case management following and will follow-up on Friday with possible discharge planning. 05/24/2023 Patient is seen in follow-up with no acute overnight issues noted. Patient is afebrile and denies any chest pain or shortness of breath. Patient is tolerating diet with no reported nausea or vomiting. Patient is medically stable and awaiting AF with possible discharge on Friday. Will follow-up with case management Friday to coordinate discharge planning to [facility]. 05/25/2023 Patient is seen in follow-up today with no acute overnight issues. Patient has been compliant with medications and cooperative with staff. Plan is for discharge to [facility] and follow-up with [facility] with psychiatry in the outpatient setting. Will follow-up with case management in regards to discharge planning as [place] had reported patient was available to have a bed on 05/26/2023. Review of systems: Constitutional: No reports of fatigue, fever, or chills Cardiovascular: No reports of chest pain or palpitations Respiratory: No reports of shortness of breath or cough GI: No reports of nausea, no reports of vomiting, no diarrhea : No reports of dysuria or retention Neurovascular: No reports of generalized weakness All medications have been reviewed PHYSICAL EXAMINATION: GENERAL: The patient is alert and oriented x4, Well developed, well nourished. HEENT: Pupils are round and equally reacting to light. EOMI. no scleral icterus. No conjunctival pallor. Normocephalic, atraumatic. No pharyngeal erythema. No thyromegaly. CARDIOVASCULAR: S1 and S2 muffled PULMONARY: diminished breath sounds bilaterally with no wheezing or rhonchi noted. ABDOMEN: soft. Nontender on exam. obese. non-distended, normoactive bowel sounds. No palpable organomegaly. MUSCULOSKELETAL: No joint swelling or deformity. EXTREMITIES: No cyanosis, clubbing, or pedal edema. NEUROLOGICAL: Gross neurological examination did not reveal any focal deficits. SKIN: No rashes. Assessment: Acute COVID-19 infection Elevated d-dimer likely secondary to above, patient refused CT angiogram and further workup Violent outbursts in the intermediate, psychotic agitation Neurodevelopmental delay history History of anxiety/bipolar depression Panic disorder history GI prophylaxis DVT prophylaxis Full code Plan: Recommend to continue with current medications and management with case managem ent following working on discharge. Patient has been accepted by [facility] and was scheduled for discharge Friday although per [facility], unable to accept the patient until Friday. Discharge planning in process including medication reconciliation and patient will require 30-day supply of medications. Patient to follow-up with [facility] outpatient and continue with psychiatric care in the outpatient setting. Continue with sitter at the bedside as patient is unable to leave AMA Encouraged increased activity as tolerated Encouraged medication compliance. Patient has been cooperative and compliant with medications thus far. Discharge planning in process tentatively 05/26/2023 to [facility]. The impression and plan of care has been dictated by Elizabeth Allan, nurse practitioner as directed. Dr. Chloé MD I have performed a history and examination and MDM of this patient, discussed the same with the dictator, and agree with the dictator's assessment and plan as written ,documented as a scribe. Based on total visit time, I have performed more than 50% of the visit. Any additional findings or plans will be noted. Objective - Vital Signs Vital signs: Vital Signs Temp 98.2 F 05/25/23 13:47 Pulse 88 05/25/23 13:47 Resp 17 05/25/23 13:47 BP 118/72 05/25/23 13:47 Pulse Ox 98 05/25/23 13:47 FiO2 Intake & Output 05/24/23 05/25/23 05/25/23 18:59 06:59 18:59 Other: Voiding Method Toilet Toilet Toilet Diaper Diaper # Voids 5 # Bowel Movements 1 - Labs CBC & Chem 7: 05/08/23 07:06 05/08/23 07:06
[2023-05-26 07:45] VITALS: BP 116/74; PULSE 97; RESP 20; TEMP 97.4
[2023-05-26] MEDS: DIVALPROEX 500 MG TABLET.DR PO SCH (08:40)
[2023-05-26] MEDS: ZINC SULFATE 220 MG CAP PO SCH (08:40)
[2023-05-26] MEDS: CALCIUM CARB-VIT D 500 MG-5 MCG TAB PO SCH (08:40)
[2023-05-26] MEDS: ASCORBIC ACID 500 MG TAB PO SCH (08:41)
[2023-05-26] MEDS: ENOXAPARIN 40 MG/0.4 ML SYRINGE SQ SCH (08:41)
[2023-05-26] MEDS: DIVALPROEX SPRINKLE 125 MG CAP.SPRINK PO SCH (08:41)
[2023-05-26] MEDS: OLANZapine 5 MG TAB PO SCH (08:41)
[2023-05-26] MEDS: DAYSEE PO SCH (08:41)
[2023-05-26] MEDS: polyethylene glycoL 3350 17 GM POWD.PACK PO SCH (08:44)
--- NOTE | 2023-05-26 10:12 | P.DS ---
Providers Date of admission: 05/09/23 13:41 Expected date of discharge: 05/26/23 Attending physician: Duane Wade Consults: 05/05/23 15:16 Consult Physician Routine Consulting Provider: Psychiatry - MPH Psychiatry Consult Reason/Comments: Behavioral issues Do you want consulting provider notified?: Yes 05/07/23 13:16 Consult Physician Routine Consulting Provider: Luke Gayle Consult Reason/Comments: psychosis Do you want consulting provider notified?: Yes 05/07/23 13:17 Consult Physician Routine Consulting Provider: Zully Griffiths Consult Reason/Comments: covid- remdesivir? Do you want consulting provider notified?: Yes Primary care physician: Rashard Cobb [facility] Course: Final diagnosis Acute COVID-19 infection Elevated d-dimer likely secondary to above, patient refused CT angiogram and further workup Violent outbursts in the nursing home, psychotic agitation Neurodevelopmental delay history History of anxiety/bipolar depression Panic disorder history GI prophylaxis DVT prophylaxis Full code Discharge disposition Patient is being discharged in a stable condition with guarded prognosis to [facility]. Patient will follow-up with her primary care provider as well as [facility] and psychiatry in the outpatient setting upon discharge. Total time taken is greater than 35 minutes. Hospital course This is a 22-year-old female who was recently admitted with increased agitation and aggressive behavior was scheduled to go to psych and awaiting in the ER for a few days with no beds available. Patient had some symptoms of cough and was tested for COVID and was positive and patient was transferred to the medical floor. Patient was seen and evaluated by infectious disease with no respiratory compromise maintained on vitamin and zinc supplements and has passed the protocol for isolation. Patient is with a legal guardian and follows with [facility] outpatient and awaiting to receive AFC placement. Patient was accepted at [place] and will be discharged today. Patient to follow-up with Dr. Cid psychiatry in the outpatient setting. Continue with medications as prescribed below. Patient is afebrile with no reported chest pain or shortness of breath. Patient is tolerating diet and denies nausea or vomiting. Case management following arranging on discharge planning needs. Patient will be discharged today. Please refer to other consultation notes for further HPI. Physical exam: Gen: This is a 22-year-old female who is awake, alert and oriented x 3, well- developed, well-nourished HEENT: Head is atraumatic, normocephalic. Pupils equal, round. Sclerae is anicteric. NECK: Supple. No JVD. No lymphadenopathy. No thyromegaly. LUNGS: Clear to auscultation. No wheezes or rhonchi. No intercostal retractions. HEART: Regular rate and rhythm. No murmur. ABDOMEN: Soft. Bowel sounds are present. No masses. No tenderness. EXTREMITIES: No pedal edema. No calf tenderness. NEUROLOGICAL: Patient is awake, alert and oriented x3. Cranial nerves 2 through 12 are grossly intact. Please refer to medication reconciliation sheet for a list of medications. The impression and plan of care has been dictated by Elizabeth Allan, Nurse Practitioner as directed. Dr. Chloé MD I have performed a history and examination and MDM of this patient, discussed the same with the dictator, and agree with the dictator's assessment and plan as written ,documented as a scribe. Based on total visit time, I have performed more than 50% of the visit. Patient Condition at Discharge: Fair Plan - Discharge Summary New Discharge Prescriptions: New Divalproex Sprinkle [Depakote Sprinkle] 125 mg PO BID 30 Days #60 cap Ascorbic Acid [Vitamin C] 500 mg PO DAILY #30 tab OLANZapine [ZyPREXA] 5 mg PO DAILY #30 tab Continue Linaclotide [Linzess] 290 mcg PO HS PRN PRN Reason: Gi Upset Divalproex [Depakote] 500 mg PO BID #60 tab traZODone HCL [Desyrel] 100 mg PO HS #30 tab [place] Carbonate 1,200 mg PO HS 30 Days #60 cap [place] 1 tab PO DAILY #30 polyethylene glycoL 3350 [Miralax] 17 gm PO DAILY 30 Days #30 each Ibuprofen [Motrin] 600 mg PO Q6HR PRN #20 tab PRN Reason: Pain Calcium Carb/Vitamin D3/Vit K1 [Viactiv 650 mg-12.5 Mcg Chew] 1 tab PO DAILY@0800 #30 tab OLANZapine [ZyPREXA] 5 mg PO HS #30 tab Discontinued Divalproex Sodium [Depakote] 125 mg PO BID Discharge Medication List Linaclotide [Linzess] 290 mcg PO HS PRN 04/26/23 [History] Ascorbic Acid [Vitamin C] 500 mg PO DAILY #30 tab 05/22/23 [Rx] Calcium Carb/Vitamin D3/Vit K1 [Viactiv 650 mg-12.5 Mcg Chew] 1 tab PO DAILY@0800 #30 tab 05/22/23 [Rx] [place]see 1 tab PO DAILY #30 05/22/23 [Rx] Divalproex Sprinkle [Depakote Sprinkle] 125 mg PO BID 30 Days #60 cap 05/22/23 [Rx] Divalproex [Depakote] 500 mg PO BID #60 tab 05/22/23 [Rx] Ibuprofen [Motrin] 600 mg PO Q6HR PRN #20 tab 05/22/23 [Rx] [place] Carbonate 1,200 mg PO HS 30 Days #60 cap 05/22/23 [Rx] OLANZapine [ZyPREXA] 5 mg PO DAILY #30 tab 05/22/23 [Rx] OLANZapine [ZyPREXA] 5 mg PO HS #30 tab 05/22/23 [Rx] polyethylene glycoL 3350 [Miralax] 17 gm PO DAILY 30 Days #30 each 05/22/23 [Rx] traZODone HCL [Desyrel] 100 mg PO HS #30 tab 05/22/23 [Rx] Follow up Appointment(s)/Referral(s): Rashard Cobb DO [Primary Care Provider] - 05/13/23 10:00 am Patient Instructions/Handouts: Brief Psychotic Disorder (DC), COVID-19 (Coronavirus Disease 2019) (DC) Activity/Diet/Wound Care/Special Instructions: f/u psych as advised Continue regular diet Follow-up with primary care provider on discharge Make sure you send the patient's home meds with her at discharge. They are in the med room in her med box Discharge Disposition: OTHER INSTITUTION NOT DEFINED
== END 2023-05-26 12:29 | disposition home or self-care (01) | DRG 178 ==
LOC: EEVIPCON 20:17 → EC 20:17 → 6NMEDSUR 05-06 17:26 → 4SSUR 05-07 21:48 → OBSVTOIN 05-09 13:41 → INTOOBSV 05-09 13:41 → 4SSUR 05-09 19:05
PROVIDERS: ADMIT Hospitalist; ATTEND Hospitalist
DX: U07.1 COVID-19 (principal); F31.5 Bipolar disorder, current episode depressed, severe, with psychotic features; F88 Other disorders of psychological development; F41.0 Panic disorder [episodic paroxysmal anxiety]; R62.50 Unspecified lack of expected normal physiological development in childhood; R79.89 Other specified abnormal findings of blood chemistry; Z53.29 Procedure and treatment not carried out because of patient's decision for other reasons; Z28.310 Unvaccinated for COVID-19; Z79.899 Other long term (current) drug therapy; Z88.0 Allergy status to penicillin; Z88.5 Allergy status to narcotic agent
CPT/HCPCS: 36415; 70450; 71045; 72125; 80048; 80053; 80178; 80306; 81001; 81025; 82075; 85025; 85379; 85652; 86140; 87636; 96372; 99285